=== PATIENT | female | born 1970 | race Two or more races ===

== ENCOUNTER 2020-01-13 18:26 | Emergency (ER) | payer OTHER, SELFPAY ==
[2020-01-13 19:10] VITALS: BP 154/95; PULSE 83; RESP 18; TEMP 36.8; O2SAT 99; BMI 23.7
--- NOTE | 2020-01-13 19:14 | ED.FEMALEGU ---
HPI - Female Genitourinary General Chief complaint: Urogenital-Female Stated complaint: Vaginal Irritation Time Seen by Provider: 01/13/20 19:13 Source: patient Mode of arrival: ambulatory Limitations: no limitations History of Present Illness HPI Narrative: Painful urination when the urine gets on her skin, vaginal itching. Patient has been on clotrimazole intravaginal, metronidazole suppository, miconazole 9 days ago. Patient felt better now with just itching. MD elicited complaint: dysuria Related Data Previous Rx's Medication Instructions Recorded fluconazole [Diflucan] 200 mg PO DAILY #1 tab 01/13/20 metformin [Glucophage] 1,000 mg PO DAILY #10 tab 01/13/20 Allergies Allergy/AdvReac Type Severity Reaction Status Date / Time aspirin [Aspirin] Allergy Mild UNKNOWN, Verified 01/13/20 19:15 causes bleeding in her kidney morphine [Morphine] Allergy Mild UNKNOWN Verified 01/13/20 19:15 penicillin G [Penicillin G] Allergy Mild UNKNOWN Verified 01/13/20 19:15 penicillin V Allergy Unknown rash and Verified 01/13/20 19:15 edema SEAFOOD Allergy Unknown UNKNOWN Uncoded 12/07/19 16:12 seafood Allergy Unknown anaphylaxis Uncoded 02/17/18 00:00 seafood, pollen Allergy Unknown Anaphylaxis Uncoded 01/13/20 19:15 Review of Systems Constitutional: Constitutional: Reports no additional constitutional complaints Eyes: Eyes: Reports no additional eye complaints ENT: Denies dizziness Cardiovascular: Cardiovascular: Reports no additional cardiovascular complaints Respiratory: Respiratory: Reports as per HPI Gastrointestinal: Gastrointestinal: Reports no additional gastrointestinal complaints Genitourinary: Genitourinary: Reports no additional female genitourinary complaints Musculoskeletal: Musculoskeletal: Reports no additional musculoskeletal complaints Integumentary/Breasts: Skin/Breast: Denies rash Neurologic: Reports system reviewed and no additional complaints, except as documented, Denies dizziness and Denies Sensory deficit (Neuro) Psychiatric: Psychiatric: Denies anxiety PMFSH Past Medical History Medical History Asthma Hypertension Social History Social History Alcohol intake: never Physical Exam Vital Signs: Vital Signs: Vital Signs Temp Pulse Resp BP Pulse Ox 01/13/20 19:10 98.3 F 83 18 154/95 H 99 Body Mass Index 23.7 Const: General: healthy appearing Nutritional Appearance: average body habitus Orientation/consciousness: oriented to person and patient oriented x3 Limitations: no limitations HENMT: Head: Yes normal to inspection Ears: external ears normal General nose exam: Normal external nose present Mouth: Normal oral and palatal mucosa present and oropharynx normal Throat: Yes posterior oropharynx normal Eyes: General: appearance normal, both eyes and all related structures Neck: Other: supple Neck: Yes normal visual inspection Chest: Chest palpation & inspection: normal inspection of the chest Resp: Auscultation: clear to auscultation bilaterally Cardio: Jugular venous distension: no JVD Rate: regular rate Rhythm: regular rhythm Heart sounds: S1 normal heart sound present and S2 normal heart sound present GI: Inspection: Yes normal to inspection Palpation (GI): Soft to palpation, nontender and No hepatosplenomegaly present Auscultation: normal bowel sounds : Other: Labia Majora and Minora with erythema and cheesy discharge General: Yes no CVA tenderness Back/Spine/Pelvis: Back: no CVA tenderness Skin: Other: As described in vaginal exam Neuro: General: oriented to person and patient oriented x3 Cranial nerves: Yes CN's II-XII intact bilaterally Motor exam (neuro): 5/5 motor strength present throughout Sensory Exam: No Sensory deficit (Neuro) Extrem: General: Yes normal to inspection Psych: Appearance: grossly normal Course Course Course Narrative: patient signed out to Dr. Doll for management of sugar and final dispositions MDM - Female Genitourinary MDM Narrative Medical decision making narrative: Patient with what appears to be vaginal candidaisis, now with sugar of 567 will hydrate and check labs. Patient to be discharged on 7 days of intravaginal miconazole, diflucan x 1 and metformin Lab Data Result diagrams: 01/13/20 21:11 01/13/20 21:11 Labs: Lab Results 01/13/20 01/13/20 01/13/20 Range/Units 19:18 19:32 20:55 WBC (4.8-10.8) X10*3/uL RBC (4.20-5.50) X10*6/uL Hgb (12.0-16.0) g/dl Hct (37-47) % MCV (80-98) fL MCH (27.0-33.0) pg MCHC (31.0-35.0) g/dl RDW (11.0-16.0) % Plt Count (160-400) X10*3/uL MPV (9.4-12.3) fL Immature Gran % (Auto) (0.0-0.4) % Neut % (Auto) (45-73) % Lymph % (Auto) (20-40) % [place] % (Auto) (2-11) % Eos % (Auto) (0-4) % Baso % (Auto) (0-2) % Lymph # (Auto) (1.2-4.9) X10*3/uL [place] # (Auto) (0.1-1.2) X10*3/uL Eos # (Auto) (0.0-0.4) X10*3/uL Baso # (Auto) (0.0-0.2) X10*3/uL Abs Immat Gran (auto) (0.00-0.03) X10*3/uL Absolute Neuts (auto) (2.0-8.3) X10*3/uL Absolute Nucleated RBC (0.0-0.012) X10*3/uL Nucleated RBC % (auto) (0.0-0.2) /100WBC Sodium (135-145) mmol/L Potassium (3.3-5.1) mmol/l Chloride (96-108) mmol/L Carbon Dioxide (22-29) mmol/L Anion Gap (12-20) BUN (9-16) mg/dL Creatinine (0.5-1.4) mg/dL Estim Creat Clear Calc Estimated GFR POC Glucose 567 H* 477 H* (60-115) mg/dL Random Glucose (60-115) mg/dL Calcium (8.4-10.2) mg/dL Urine Color YELLOW Urine Appearance CLEAR Urine pH 6.0 (5.0-8.0) Ur Specific [place] <= 1.005 (1.005-1.025) Urine Protein NEG (NEG-TRACE) MG/DL Urine Glucose (UA) >=1000 H (NEG) MG/DL Urine Ketones NEG (NEG) MG/DL Urine Blood TRACE (NEG) Urine Nitrite NEG (NEG) Ur Leukocyte Esterase NEG (NEG) Urine RBC 1-4 (0) /HPF Urine WBC 0-2 (0-4) /HPF Ur Squamous Epith Cells TRACE /LPF Urine Bacteria NONE /LPF 01/13/20 01/13/20 01/13/20 Range/Units 21:11 21:11 22:28 WBC 10.5 (4.8-10.8) X10*3/uL RBC 5.42 (4.20-5.50) X10*6/uL Hgb 14.7 (12.0-16.0) g/dl Hct 44.8 (37-47) % MCV 82.7 (80-98) fL MCH 27.1 (27.0-33.0) pg MCHC 32.8 (31.0-35.0) g/dl RDW 12.2 (11.0-16.0) % Plt Count 349 (160-400) X10*3/uL MPV 10.2 (9.4-12.3) fL Immature Gran % (Auto) 0.3 (0.0-0.4) % Neut % (Auto) 75.3 H (45-73) % Lymph % (Auto) 17.0 L (20-40) % [place] % (Auto) 6.8 (2-11) % Eos % (Auto) 0.4 (0-4) % Baso % (Auto) 0.2 (0-2) % Lymph # (Auto) 1.8 (1.2-4.9) X10*3/uL [place] # (Auto) 0.7 (0.1-1.2) X10*3/uL Eos # (Auto) 0.0 (0.0-0.4) X10*3/uL Baso # (Auto) 0.0 (0.0-0.2) X10*3/uL Abs Immat Gran (auto) 0.03 (0.00-0.03) X10*3/uL Absolute Neuts (auto) 7.9 (2.0-8.3) X10*3/uL Absolute Nucleated RBC 0.000 (0.0-0.012) X10*3/uL Nucleated RBC % (auto) 0.0 (0.0-0.2) /100WBC Sodium 135 (135-145) mmol/L Potassium 4.3 (3.3-5.1) mmol/l Chloride 98 (96-108) mmol/L Carbon Dioxide 24 (22-29) mmol/L Anion Gap 17 (12-20) BUN 15 (9-16) mg/dL Creatinine 1.13 (0.5-1.4) mg/dL Estim Creat Clear Calc 49.2 Estimated GFR 51 POC Glucose 395 H* (60-115) mg/dL Random Glucose 592 H* (60-115) mg/dL Calcium 9.3 (8.4-10.2) mg/dL Urine Color Urine Appearance Urine pH (5.0-8.0) Ur Specific [place] (1.005-1.025) Urine Protein (NEG-TRACE) MG/DL Urine Glucose (UA) (NEG) MG/DL Urine Ketones (NEG) MG/DL Urine Blood (NEG) Urine Nitrite (NEG) Ur Leukocyte Esterase (NEG) Urine RBC (0) /HPF Urine WBC (0-4) /HPF Ur Squamous Epith Cells /LPF Urine Bacteria /LPF 01/13/20 Range/Units 23:36 WBC (4.8-10.8) X10*3/uL RBC (4.20-5.50) X10*6/uL Hgb (12.0-16.0) g/dl Hct (37-47) % MCV (80-98) fL MCH (27.0-33.0) pg MCHC (31.0-35.0) g/dl RDW (11.0-16.0) % Plt Count (160-400) X10*3/uL MPV (9.4-12.3) fL Immature Gran % (Auto) (0.0-0.4) % Neut % (Auto) (45-73) % Lymph % (Auto) (20-40) % [place] % (Auto) (2-11) % Eos % (Auto) (0-4) % Baso % (Auto) (0-2) % Lymph # (Auto) (1.2-4.9) X10*3/uL [place] # (Auto) (0.1-1.2) X10*3/uL Eos # (Auto) (0.0-0.4) X10*3/uL Baso # (Auto) (0.0-0.2) X10*3/uL Abs Immat Gran (auto) (0.00-0.03) X10*3/uL Absolute Neuts (auto) (2.0-8.3) X10*3/uL Absolute Nucleated RBC (0.0-0.012) X10*3/uL Nucleated RBC % (auto) (0.0-0.2) /100WBC Sodium (135-145) mmol/L Potassium (3.3-5.1) mmol/l Chloride (96-108) mmol/L Carbon Dioxide (22-29) mmol/L Anion Gap (12-20) BUN (9-16) mg/dL Creatinine (0.5-1.4) mg/dL Estim Creat Clear Calc Estimated GFR POC Glucose 289 H (60-115) mg/dL Random Glucose (60-115) mg/dL Calcium (8.4-10.2) mg/dL Urine Color Urine Appearance Urine pH (5.0-8.0) Ur Specific [place] (1.005-1.025) Urine Protein (NEG-TRACE) MG/DL Urine Glucose (UA) (NEG) MG/DL Urine Ketones (NEG) MG/DL Urine Blood (NEG) Urine Nitrite (NEG) Ur Leukocyte Esterase (NEG) Urine RBC (0) /HPF Urine WBC (0-4) /HPF Ur Squamous Epith Cells /LPF Urine Bacteria /LPF Discharge Plan Discharge Clinical Impression: Skin yeast infection, Acute hyperglycemia Patient Disposition: Home, Self-Care Instructions: Diabetic Hyperglycemia (ED), Skin Yeast Infection (ED) Prescriptions: New fluconazole [Diflucan] 200 mg tablet 200 mg PO DAILY Qty: 1 RF: 0 metformin [Glucophage] 1,000 mg tablet 1,000 mg PO DAILY Qty: 10 RF: 0 Referrals: Shanon Harris MD [Primary Care Provider] - 2 days Interventions: ED Discharge Assessment Last Done: 01/14/20 00:09 Discharge Date/Time: 01/14/20 00:09 Print Language: Khmer
[2020-01-13 19:34] LABS: Glucose Urine UA >=1000 MG/DL (NEG); Leukocyte Esterase Urine NEG (NEG); Nitrite Urine NEG (NEG); Specific Gravity - Urine <= 1.005 (1.005-1.025); Urine Blood TRACE (NEG); Urine Ketones NEG (NEG); Urine Protein NEG (NEG-TRACE)
[2020-01-13 19:35] LABS: Appearance Urine CLEAR; Color Urine YELLOW
[2020-01-13 19:40] LABS: Glucose, Whole Blood 567 mg/dL (60-115)
--- NOTE | 2020-01-13 19:52 | PC.NURSE ---
PT REFUSING LABS, INSULIN AND IV AND IV FLUID UNTIL SHE TALKS WITH RISK AND BENEFITS DISCUSSED WITH PT WITH STAFF BRIDGE TOLL COLLECTOR PT INCREASINGLY NERVOUS.
--- NOTE | 2020-01-13 19:54 | PC.NURSE ---
EXAMANATION OF THE GRION AREA WITH DR SYKES PERFORMED WITH RN WITNESS AREA PINK AND INFLAMED RASH NOTED.
[2020-01-13 20:29] LABS: Squamous Epithelial Cell Urine TRACE /LPF; WBC Urine 0-2 /HPF (0-4)
[2020-01-13 21:00] LABS: Glucose, Whole Blood 477 mg/dL (60-115)
[2020-01-13] MEDS: 0.9 % Sodium Chloride 500 ML 1000 ML IV (21:17)
[2020-01-13 21:24] LABS: MANUAL DIFF FLAG NO
[2020-01-13 21:26] LABS: Basophils Percent Auto 0.2 % (0-2); Eosinophils Percent Auto 0.4 % (0-4); Hematocrit 44.8 % (37-47); Hemoglobin 14.7 g/dl (12.0-16.0); Imm Gran Abs Auto 0.03 X10*3/uL (0.00-0.03); Imm Gran Pct Auto 0.3 % (0.0-0.4); Lymphocytes Absolute Auto 1.8 X10*3/uL (1.2-4.9); Mean Corpuscular HGB Conc 32.8 g/dl (31.0-35.0); Mean Corpuscular Hemoglobin 27.1 pg (27.0-33.0); Mean Corpuscular Volume 82.7 fL (80-98); Mean Platelet Volume 10.2 fL (9.4-12.3); Monocytes Absolute Auto 0.7 X10*3/uL (0.1-1.2); Monocytes Percent Auto 6.8 % (2-11); Neutrophils Absolute Auto 7.9 X10*3/uL (2.0-8.3); Neutrophils Percent Auto 75.3 % (45-73); Platelet Count 349 X10*3/uL (160-400); Red Blood Count 5.42 X10*6/uL (4.20-5.50); Red Cell Distribution Width 12.2 % (11.0-16.0); White Blood Count 10.5 X10*3/uL (4.8-10.8)
[2020-01-13] MEDS: Insulin Regular, Human 100 UNIT/ML 3 ML VIAL 10 UNIT SUBCUT (21:27)
--- NOTE | 2020-01-13 22:01 | PC.NURSE ---
PT HAD REQUESTED TO RECHECKED FOR POC BEFORE STARTING ANY MEDICATION OR LABS POC 477 PT AGREED TO LAB, IV AND IV FLUIDS, AND INSULIN. DR LAMBERT AWARE OF POC OF 477 AND WANT TO CONTINUE WITH 10 SQ REG INSULIN.
[2020-01-13 22:08] LABS: Anion Gap 17 (12-20); Blood Urea Nitrogen 15 mg/dL (9-16); Calcium 9.3 mg/dL (8.4-10.2); Carbon Dioxide 24 mmol/L (22-29); Chloride 98 mmol/L (96-108); Creatinine Clr Calc Pharmacy 49.2; Estimated Glomerular Filt Rate 51; Glucose Random 592 mg/dL (60-115); Potassium 4.3 mmol/l (3.3-5.1); Sodium 135 mmol/L (135-145)
[2020-01-13 22:24] VITALS: BP 129/77; PULSE 78; RESP 16; TEMP 37.1; O2SAT 98
[2020-01-13 22:34] LABS: Glucose, Whole Blood 395 mg/dL (60-115)
--- NOTE | 2020-01-13 22:35 | PC.NURSE ---
DR PANIAGUA AWARE OF POC OF 395 AND ORDERED 5 UN SQ INSULIN
[2020-01-13] MEDS: Insulin Regular, Human 100 UNIT/ML 3 ML VIAL SUBCUT (22:49)
--- NOTE | 2020-01-13 23:18 | PC.NURSE ---
PT MOVED T MAIN ED REPORT GIVEN TO AMAN GUTIERREZ. PT AWARE SHE WILL HAVE POC RECHECKED IN 1 HR.
[2020-01-13 23:40] LABS: Glucose, Whole Blood 289 mg/dL (60-115)
--- NOTE | 2020-01-13 23:45 | ED_ITS ---
HPI - Female Genitourinary General Chief complaint: Urogenital-Female Stated complaint: Vaginal Irritation Time Seen by Provider: 01/13/20 19:13 Source: patient Mode of arrival: ambulatory Limitations: no limitations Related Data Previous Rx's Medication Instructions Recorded fluconazole [Diflucan] 200 mg PO DAILY #1 tab 01/13/20 metformin [Glucophage] 1,000 mg PO DAILY #10 tab 01/13/20 Allergies Allergy/AdvReac Type Severity Reaction Status Date / Time aspirin [Aspirin] Allergy Mild UNKNOWN, Verified 01/13/20 19:15 causes bleeding in her kidney morphine [Morphine] Allergy Mild UNKNOWN Verified 01/13/20 19:15 penicillin G [Penicillin G] Allergy Mild UNKNOWN Verified 01/13/20 19:15 penicillin V Allergy Unknown rash and Verified 01/13/20 19:15 edema SEAFOOD Allergy Unknown UNKNOWN Uncoded 12/07/19 16:12 seafood Allergy Unknown anaphylaxis Uncoded 02/17/18 00:00 seafood, pollen Allergy Unknown Anaphylaxis Uncoded 01/13/20 19:15 Review of Systems ENT: Denies dizziness Neurologic: Reports system reviewed and no additional complaints, except as documented, Denies dizziness and Denies Sensory deficit (Neuro) [facility] Past Medical History Medical History Asthma Hypertension Social History Social History Alcohol intake: never Smoked in Last 30 Days: No Use of substances other than those prescribed or required for medical reasons: No Advance Directives: No Advance Directives Information Provided: No Physical Exam Vital Signs: Vital Signs: Vital Signs Temp Pulse Resp BP Pulse Ox 01/13/20 22:24 98.7 F 78 16 129/77 98 01/13/20 19:10 98.3 F 83 18 154/95 H 99 Body Mass Index 23.7 Neuro: Sensory Exam: No Sensory deficit (Neuro) MDM - Female Genitourinary MDM Narrative Medical decision making narrative: patient's sugar came down nicely with insulin. Will discharge patient with anti fungal medication. In addition metformin was started. Patient told to closely follow up with her primary physician as she has diabetes. Patient in stable condition with discharge home Lab Data Attestation: I reviewed the patient's lab results. Result diagrams: 01/13/20 21:11 01/13/20 21:11 Labs: Lab Results 01/13/20 01/13/20 01/13/20 Range/Units 19:18 19:32 20:55 WBC (4.8-10.8) X10*3/uL RBC (4.20-5.50) X10*6/uL Hgb (12.0-16.0) g/dl Hct (37-47) % MCV (80-98) fL MCH (27.0-33.0) pg MCHC (31.0-35.0) g/dl RDW (11.0-16.0) % Plt Count (160-400) X10*3/uL MPV (9.4-12.3) fL Immature Gran % (Auto) (0.0-0.4) % Neut % (Auto) (45-73) % Lymph % (Auto) (20-40) % [place] % (Auto) (2-11) % Eos % (Auto) (0-4) % Baso % (Auto) (0-2) % Lymph # (Auto) (1.2-4.9) X10*3/uL [place] # (Auto) (0.1-1.2) X10*3/uL Eos # (Auto) (0.0-0.4) X10*3/uL Baso # (Auto) (0.0-0.2) X10*3/uL Abs Immat Gran (auto) (0.00-0.03) X10*3/uL Absolute Neuts (auto) (2.0-8.3) X10*3/uL Absolute Nucleated RBC (0.0-0.012) X10*3/uL Nucleated RBC % (auto) (0.0-0.2) /100WBC Sodium (135-145) mmol/L Potassium (3.3-5.1) mmol/l Chloride (96-108) mmol/L Carbon Dioxide (22-29) mmol/L Anion Gap (12-20) BUN (9-16) mg/dL Creatinine (0.5-1.4) mg/dL Estim Creat Clear Calc Estimated GFR POC Glucose 567 H* 477 H* (60-115) mg/dL Random Glucose (60-115) mg/dL Calcium (8.4-10.2) mg/dL Urine Color YELLOW Urine Appearance CLEAR Urine pH 6.0 (5.0-8.0) Ur Specific [place] <= 1.005 (1.005-1.025) Urine Protein NEG (NEG-TRACE) MG/DL Urine Glucose (UA) >=1000 H (NEG) MG/DL Urine Ketones NEG (NEG) MG/DL Urine Blood TRACE (NEG) Urine Nitrite NEG (NEG) Ur Leukocyte Esterase NEG (NEG) Urine RBC 1-4 (0) /HPF Urine WBC 0-2 (0-4) /HPF Ur Squamous Epith Cells TRACE /LPF Urine Bacteria NONE /LPF 01/13/20 01/13/20 01/13/20 Range/Units 21:11 21:11 22:28 WBC 10.5 (4.8-10.8) X10*3/uL RBC 5.42 (4.20-5.50) X10*6/uL Hgb 14.7 (12.0-16.0) g/dl Hct 44.8 (37-47) % MCV 82.7 (80-98) fL MCH 27.1 (27.0-33.0) pg MCHC 32.8 (31.0-35.0) g/dl RDW 12.2 (11.0-16.0) % Plt Count 349 (160-400) X10*3/uL MPV 10.2 (9.4-12.3) fL Immature Gran % (Auto) 0.3 (0.0-0.4) % Neut % (Auto) 75.3 H (45-73) % Lymph % (Auto) 17.0 L (20-40) % [place] % (Auto) 6.8 (2-11) % Eos % (Auto) 0.4 (0-4) % Baso % (Auto) 0.2 (0-2) % Lymph # (Auto) 1.8 (1.2-4.9) X10*3/uL [place] # (Auto) 0.7 (0.1-1.2) X10*3/uL Eos # (Auto) 0.0 (0.0-0.4) X10*3/uL Baso # (Auto) 0.0 (0.0-0.2) X10*3/uL Abs Immat Gran (auto) 0.03 (0.00-0.03) X10*3/uL Absolute Neuts (auto) 7.9 (2.0-8.3) X10*3/uL Absolute Nucleated RBC 0.000 (0.0-0.012) X10*3/uL Nucleated RBC % (auto) 0.0 (0.0-0.2) /100WBC Sodium 135 (135-145) mmol/L Potassium 4.3 (3.3-5.1) mmol/l Chloride 98 (96-108) mmol/L Carbon Dioxide 24 (22-29) mmol/L Anion Gap 17 (12-20) BUN 15 (9-16) mg/dL Creatinine 1.13 (0.5-1.4) mg/dL Estim Creat Clear Calc 49.2 Estimated GFR 51 POC Glucose 395 H* (60-115) mg/dL Random Glucose 592 H* (60-115) mg/dL Calcium 9.3 (8.4-10.2) mg/dL Urine Color Urine Appearance Urine pH (5.0-8.0) Ur Specific [place] (1.005-1.025) Urine Protein (NEG-TRACE) MG/DL Urine Glucose (UA) (NEG) MG/DL Urine Ketones (NEG) MG/DL Urine Blood (NEG) Urine Nitrite (NEG) Ur Leukocyte Esterase (NEG) Urine RBC (0) /HPF Urine WBC (0-4) /HPF Ur Squamous Epith Cells /LPF Urine Bacteria /LPF 01/12/ Range/Units 23:36 WBC (4.8-10.8) X10*3/uL RBC (4.20-5.50) X10*6/uL Hgb (12.0-16.0) g/dl Hct (37-47) % MCV (80-98) fL MCH (27.0-33.0) pg MCHC (31.0-35.0) g/dl RDW (11.0-16.0) % Plt Count (160-400) X10*3/uL MPV (9.4-12.3) fL Immature Gran % (Auto) (0.0-0.4) % Neut % (Auto) (45-73) % Lymph % (Auto) (20-40) % [place] % (Auto) (2-11) % Eos % (Auto) (0-4) % Baso % (Auto) (0-2) % Lymph # (Auto) (1.2-4.9) X10*3/uL [place] # (Auto) (0.1-1.2) X10*3/uL Eos # (Auto) (0.0-0.4) X10*3/uL Baso # (Auto) (0.0-0.2) X10*3/uL Abs Immat Gran (auto) (0.00-0.03) X10*3/uL Absolute Neuts (auto) (2.0-8.3) X10*3/uL Absolute Nucleated RBC (0.0-0.012) X10*3/uL Nucleated RBC % (auto) (0.0-0.2) /100WBC Sodium (135-145) mmol/L Potassium (3.3-5.1) mmol/l Chloride (96-108) mmol/L Carbon Dioxide (22-29) mmol/L Anion Gap (12-20) BUN (9-16) mg/dL Creatinine (0.5-1.4) mg/dL Estim Creat Clear Calc Estimated GFR POC Glucose 289 H (60-115) mg/dL Random Glucose (60-115) mg/dL Calcium (8.4-10.2) mg/dL Urine Color Urine Appearance Urine pH (5.0-8.0) Ur Specific [place] (1.005-1.025) Urine Protein (NEG-TRACE) MG/DL Urine Glucose (UA) (NEG) MG/DL Urine Ketones (NEG) MG/DL Urine Blood (NEG) Urine Nitrite (NEG) Ur Leukocyte Esterase (NEG) Urine RBC (0) /HPF Urine WBC (0-4) /HPF Ur Squamous Epith Cells /LPF Urine Bacteria /LPF Discharge Plan Discharge Clinical Impression: Skin yeast infection, Acute hyperglycemia Patient Disposition: Home, Self-Care Instructions: Diabetic Hyperglycemia (ED), Skin Yeast Infection (ED) Prescriptions: New fluconazole [Diflucan] 200 mg tablet 200 mg PO DAILY Qty: 1 RF: 0 metformin [Glucophage] 1,000 mg tablet 1,000 mg PO DAILY Qty: 10 RF: 0 Referrals: Shanon Harris MD [Primary Care Provider] - 2 days Print Language: Albanian
== END 2020-01-14 00:09 | disposition home or self-care (01) ==
PROVIDERS: Emergency Medicine; Emergency Provider Emergency Medicine Emergency Medical Services; PCP Family Medicine
DX: R30.0 Dysuria (principal); N89.8 Other specified noninflammatory disorders of vagina; Z79.899 Other long term (current) drug therapy
CPT/HCPCS: 36415; 80048; 81001; 82947; 85025; 99284

== ENCOUNTER 2020-04-03 13:54 | Outpatient (REF) | payer OTHER, SELFPAY | END 2020-04-03 13:55 | disposition home or self-care (01) | LOC: HO.LAB 13:54 | PROVIDERS: Visit Provider Internal Medicine | DX: Z20.822 Contact with and (suspected) exposure to COVID-19 (principal) | CPT/HCPCS: 36415; C9803; U0003 ==

== ENCOUNTER 2020-05-07 14:51 | Outpatient (REF) | payer OTHER, SELFPAY ==
[2020-05-10 05:02] LABS: HPV mRNA E6/E7 rflx Not Detected (Not Detected)
== END 2020-05-07 14:52 | disposition home or self-care (01) ==
LOC: HO.LAB 14:51
PROVIDERS: Visit Provider Obstetrics & Gynecology
DX: Z01.419 Encounter for gynecological examination (general) (routine) without abnormal findings (principal); Z11.51 Encounter for screening for human papillomavirus (HPV)
CPT/HCPCS: 36415; 87624; 88142

== ENCOUNTER 2020-05-23 11:21 | Outpatient (REF) | payer OTHER, SELFPAY ==
--- NOTE | ~2020-05-23 | MM_ITS ---
EXAMINATION: MM SCREENING DIGITAL BREAST TOMOSYNTHESIS, BILATERAL CLINICAL INFORMATION: Screening. Asymptomatic. The lifetime risk of breast cancer based on the Tyrer-Cuzick Model is 7%. COMPARISON: Mammography: 05/18/2019, 04/18/2018, 04/12/2017 TECHNIQUE: Digital breast tomosynthesis is performed in both the craniocaudal and mediolateral oblique views along with computer-aided detection (CAD). Synthesized 2D images are generated from the tomosynthesis. FINDINGS: The breasts are heterogeneously dense, which may obscure small masses (ACR BI-RADS breast composition Category c). There are no significant masses, abnormal calcifications, or other abnormalities. Parenchymal pattern is similar to prior exams. The axilla and skin contours are unremarkable. MM/MM tomosynthesis screening BI IMPRESSION: No mammographic evidence of malignancy. ASSESSMENT: BI-RADS 1: Negative RECOMMENDATION: Routine annual mammography screening. This patient's information was entered into a reminder system with a target due date for their next mammogram.
== END 2020-05-23 11:22 | disposition home or self-care (01) ==
LOC: HO.MAMMO 11:21
PROVIDERS: PCP Family Medicine; Visit Provider Family Medicine
DX: Z12.31 Encounter for screening mammogram for malignant neoplasm of breast (principal)
CPT/HCPCS: 77063; 77067

== ENCOUNTER 2020-07-31 10:22 | Outpatient (REF) | payer OTHER, SELFPAY ==
[2020-08-03 06:07] LABS: HPV mRNA E6/E7 rflx Not Detected (Not Detected)
== END 2020-07-31 10:23 | disposition home or self-care (01) ==
LOC: HO.LAB 10:22
PROVIDERS: PCP Family Medicine; Visit Provider Obstetrics & Gynecology
DX: R87.615 Unsatisfactory cytologic smear of cervix (principal); Z11.51 Encounter for screening for human papillomavirus (HPV)
CPT/HCPCS: 87624; 88142; 99212

== ENCOUNTER 2021-05-04 12:34 | Emergency (ER) | payer OTHER, SELFPAY ==
--- NOTE | ~2021-05-04 | XR_ITS ---
EXAMINATION: XR ABDOMEN KUB CLINICAL INDICATION: Constipation. COMPARISON: None TECHNIQUE: AP view of the abdomen. FINDINGS: There is scattered stool and gas seen throughout the colon without significant distention. The small bowel loops are normal caliber. Gallbladder has been surgically removed. No organomegaly. No gross bony abnormalities seen. XR/XR KUB IMPRESSION: Mild constipation. No acute process seen.
[2021-05-04 12:54] VITALS: BP 124/71; PULSE 80; RESP 16; TEMP 36.1; O2SAT 98; BMI 22.1
--- NOTE | 2021-05-04 14:37 | ED.GENADULT ---
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 Patient tells me that normally she moves her bowels about twice a week but over the last 3 days she has had difficulty passing stool with rectal pressure. She denies any abdominal pain or vomiting or fever. She is not taking any vmkg-hwk-pocsjly medications to move her bowels. Related Data Previous Rx's Medication Instructions Recorded fluconazole 200 mg tablet 200 mg PO DAILY #1 tab 01/13/20 (Diflucan) metformin 1,000 mg tablet 1,000 mg PO DAILY #10 tab 01/13/20 (Glucophage) docusate sodium 100 mg capsule 100 mg PO BID #30 cap 05/04/21 (Colace) lactulose 10 gram/15 mL (15 mL) 15 ml PO DAILY PRN #90 ml 05/04/21 oral solution polyethylene glycol 3350 17 gram 17 g PO BID #14 ea 05/04/21 oral powder packet (Miralax) Allergies Allergy/AdvReac Type Severity Reaction Status Date / Time aspirin [Aspirin] Allergy Mild UNKNOWN, Verified 05/07/20 15:03 causes bleeding in her kidney morphine [Morphine] Allergy Mild UNKNOWN Verified 05/07/20 15:03 penicillin G [Penicillin G] Allergy Mild UNKNOWN Verified 05/07/20 15:03 penicillin V Allergy Unknown rash and Verified 05/07/20 15:03 edema SEAFOOD Allergy Unknown UNKNOWN Uncoded 12/07/19 16:12 seafood Allergy Unknown anaphylaxis Uncoded 02/17/18 00:00 seafood, pollen Allergy Unknown Anaphylaxis Uncoded 01/13/20 19:15 Review of Systems Review of Systems: Yes all other systems are reviewed and are negative Constitutional: Constitutional: Reports no additional constitutional complaints, Denies body ache(s), Denies chills, Denies fever(s), Denies headache(s) and Denies weakness Eyes: Eyes: Reports no additional eye complaints and Denies change in vision ENT: Reports system reviewed and no additional complaints, except as documented, Denies dizziness, Denies headache(s), Denies nasal congestion, Denies nasal discharge and Denies neck pain Cardiovascular: Cardiovascular: Reports no additional cardiovascular complaints, Denies chest pain, Denies leg edema and Denies dyspnea Respiratory: Respiratory: Reports no additional respiratory complaints, Denies cough and Denies dyspnea Gastrointestinal: Gastrointestinal: Reports no additional gastrointestinal complaints, Denies abdominal pain, Reports constipation, Denies diarrhea, Denies nausea and Denies vomiting Genitourinary: Genitourinary: Reports no additional female genitourinary complaints and Denies urinary incontinence Musculoskeletal: Musculoskeletal: Reports no additional musculoskeletal complaints, Denies back pain, Denies arthralgias, Denies joint swelling, Denies neck pain, Denies numbness and Denies tingling Integumentary/Breasts: Skin/Breast: Reports system reviewed and no additional complaints, except as docu and Denies rash Neurologic: Reports system reviewed and no additional complaints, except as documented, Denies dizziness, Denies headache(s), Denies numbness, Denies tingling and Denies weakness PMFSH Past Medical History Attestation statement: The following information was validated with the patient. Source: old records reviewed and nursing notes reviewed Medical History Asthma Diabetes Hypertension Surgical History H/O dilation and curettage Social History Social History Alcohol intake: never Advance Directives: No Advance Directives Information Provided: Yes Physical Exam ED Vital Signs: Vital Signs - 24 hr 05/04/21 12:54 Temperature 97 F Pulse Rate 80 Respiratory Rate 16 Blood Pressure 124/71 Pulse Oximetry 98 BMI result Body Mass Index 22.1 Const General: cooperative, healthy appearing, comfortable and no acute distress Orientation/consciousness: patient oriented x3 Limitations: language barrier HENMT Head: Yes normal to inspection Ears: hearing grossly normal bilaterally General nose exam: Normal external nose present Face and sinus: Yes normal facial exam Mouth: Normal oral and palatal mucosa present Teeth and gingiva: dentition normal Throat: Yes posterior oropharynx normal and Yes tonsils normal Eyes General: appearance normal, both eyes and all related structures Pupils: Equal, round and reactive pupils present Neck Neck: Yes normal visual inspection, Yes full ROM, Yes no lymphadenopathy and Yes no meningeal signs Chest Chest palpation & inspection: normal inspection of the chest Resp Effort & Inspection: normal respiratory effort Auscultation: clear to auscultation bilaterally Cardio Rate: regular rate Peripheral pulses: Peripheral pulses 2+ throughout GI 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 Patient has not tried any onfc-ysc-pazqkus medications. Patient also denying any abdominal pain or vomiting. Abdomen is soft and nontender. Bowel sounds are present. On exam the patient has a fecal impaction. I did manually disimpact her and a Fleet enema was placed. KUB ordered from triage 1609-KUB shows mild constipation with no evidence of obstruction. After the Fleet enema the patient only was able to pass 2 small hard bowel movements. I did do an additional manual disimpaction with improvement of symptoms. Patient feeling much improved. Will discharge home with MiraLax, Colace and lactulose p.r.n.. Reviewed worrisome signs and symptoms of when to return to the emergency department. Comfortable discharge home. Procedures Procedure Narrative Procedure Narrative: Fecal disimpaction x2 with large amounts of stool removed. Patient tolerated well with no complications. Used transportation engineer (Venecia biomedical specialist and then sebastian biomedical specialist). Medical Decision Making Medical Records Medical records reviewed: Yes I reviewed the patient's medical records. Lab Data Lab results reviewed: Yes I reviewed the patient's lab results. Imaging Data Abdominal x-ray: Attestation: I personally reviewed and interpreted this imaging study as follows: Radiologist's impression: TECHNIQUE: AP view of the abdomen. FINDINGS: There is scattered stool and gas seen throughout the colon without significant distention. The small bowel loops are normal caliber. Gallbladder has been surgically removed. No organomegaly. No gross bony abnormalities seen. XR/XR KUB IMPRESSION: Mild constipation. No acute process seen. ? Discharge Plan Discharge Clinical Impression: Constipation, Fecal impaction Patient Disposition: Home, Self-Care Instructions: Constipation (DC), Fecal Impaction (ED) Additional Instructions: Dieta angle en fibra. Aumentar los l?quidos. [place] el miralax dos veces al d?a y colace dos veces al d?a hasta que tenga jesse evacuaci?n intestinal. Use lactulosa jesse dosis a la vez hasta que tenga jesse evacuaci?n intestinal. Prescriptions: New polyethylene glycol 3350 [Miralax] 17 gram powder in packet 17 g PO BID Qty: 14 0RF docusate sodium [Colace] 100 mg capsule 100 mg PO BID Qty: 30 0RF lactulose 10 gram/15 mL (15 mL) solution 15 ml PO DAILY PRN (Reason: laxative effect) Qty: 90 0RF No Action fluconazole [Diflucan] 200 mg tablet 200 mg PO DAILY Qty: 1 0RF metformin [Glucophage] 1,000 mg tablet 1,000 mg PO DAILY Qty: 10 0RF Referrals: Roberta Rondon MD [Primary Care Provider] - 1 week (if no better) Print Language: [place]an
[2021-05-04] MEDS: Sodium Phosphate,Mono-Dibasic 133 ML ENEMA PR (14:58)
[2021-05-04 16:10] VITALS: BP 125/73; PULSE 92; RESP 16; TEMP 37.2; O2SAT 98
== END 2021-05-04 16:41 | disposition home or self-care (01) ==
PROVIDERS: Emergency Provider Emergency Medicine; PCP Family Medicine
DX: K56.41 Fecal impaction (principal); Z79.899 Other long term (current) drug therapy
CPT/HCPCS: 74018; 99284

== ENCOUNTER 2021-06-16 15:05 | Outpatient (REF) | payer OTHER, SELFPAY ==
--- NOTE | ~2021-06-16 | MM_ITS ---
EXAMINATION: MM SCREENING DIGITAL BREAST TOMOSYNTHESIS, BILATERAL CLINICAL INFORMATION: Screening. Asymptomatic. The lifetime risk of breast cancer based on the Tyrer-Cuzick Model is 10%. COMPARISON: Mammography: 05/23/2020, 05/18/2019, 04/18/2018 TECHNIQUE: Digital breast tomosynthesis is performed in both the craniocaudal and mediolateral oblique views along with computer-aided detection (CAD). Synthesized 2D images are generated from the tomosynthesis. FINDINGS: The breasts are heterogeneously dense, which may obscure small masses (ACR BI-RADS breast composition Category c). There is fibronodular parenchymal pattern with scattered asymmetries similar to prior studies. No interval mass or developing density or architectural abnormality. There are no abnormal calcifications. The axilla and skin contours are unremarkable. MM/MM tomosynthesis screening BI IMPRESSION: No mammographic evidence of malignancy. ASSESSMENT: BI-RADS 2: Benign RECOMMENDATION: Routine annual mammography screening. This patient's information was entered into a reminder system with a target due date for their next mammogram.
== END 2021-06-16 15:06 | disposition home or self-care (01) ==
LOC: HO.MAMMO 15:05
PROVIDERS: Visit Provider Family Medicine
DX: Z12.31 Encounter for screening mammogram for malignant neoplasm of breast (principal)
CPT/HCPCS: 77063; 77067

== ENCOUNTER 2021-06-24 10:24 | Outpatient (REF) | payer OTHER, SELFPAY ==
[2021-06-25 09:00] LABS: CT PCR NOT DETECTED (Not Detect.); NG PCR NOT DETECTED (Not Detect.)
[2021-06-25 09:47] LABS: BV Int Neg Control Negative (Negative); BV Int Pos Control Positive (Positive)
== END 2021-06-24 10:25 | disposition home or self-care (01) ==
LOC: HO.LAB 10:24
PROVIDERS: Visit Provider Advanced Practice Midwife
DX: Z01.419 Encounter for gynecological examination (general) (routine) without abnormal findings (principal); Z20.2 Contact with and (suspected) exposure to infections with a predominantly sexual mode of transmission
CPT/HCPCS: 87480; 87491; 87510; 87591; 87660

== ENCOUNTER 2021-10-07 08:33 | Outpatient (REF) | payer OTHER, SELFPAY ==
--- NOTE | 2021-10-07 | PFT_ITS ---
INDICATION: Asthma and wheezing. SPIROMETRY: FEV1 to FVC of 86% with an FEV1 of 2.53 L, which is at 99% predicted; an FVC of 2.95 L, which is 92% predicted. Post bronchodilators, there was a significant response to bronchodilators noted. To note, the [id number] was decreased down to 56% predicted and this improved by 158% after bronchodilators, which is suspicious of asthma. Maximum voluntary ventilation 74% predicted. LUNG VOLUMES: Total lung capacity 125% predicted with a residual volume 179% predicted. DIFFUSION CAPACITY: DLCO 95% predicted. COMPARISONS: None. INTERPRETATION: No obstructive nor restrictive ventilatory defects identified. Although, the patient did have a significant response to bronchodilators noted and also has significant evidence of small airways disease, which is very suspicious for asthma. There is a mild decrease in maximum voluntary ventilation. Lung volumes do demonstrate significant air trapping and hyperinflation due to the small airways disease. Diffusion capacity is within normal limits. If asthma is in the differential or methacholine challenge may be helpful in assessing for hyper-reactive airways and for a definitive diagnosis of asthma. Otherwise, clinical correlation warranted. MD VAN Nicholson/LAKSHMI / [id number]
== END 2021-10-07 08:34 | disposition home or self-care (01) ==
LOC: HO.RESP 08:33
PROVIDERS: PCP Family Medicine; Visit Provider Family Medicine
DX: J45.40 Moderate persistent asthma, uncomplicated (principal)
CPT/HCPCS: 94060; 94727; 94729

== ENCOUNTER 2022-04-10 10:48 | Outpatient (REF) | payer OTHER, SELFPAY ==
--- NOTE | ~2022-04-10 | XR_ITS ---
EXAMINATION: XR chest 2V CLINICAL INFORMATION: Reason for Exam WHEEZING COMPARISON: Chest radiograph 08/30/2017 TECHNIQUE: 2 views of the chest FINDINGS: Clear lungs. No pneumothorax or pleural effusion. Normal cardiomediastinal silhouette. Right upper quadrant surgical clips. XR/XR chest 2V IMPRESSION: * Clear lungs.
== END 2022-04-10 10:49 | disposition home or self-care (01) ==
LOC: HO.XRAY 10:48
PROVIDERS: PCP Family Medicine; Visit Provider Family Medicine
DX: R06.2 Wheezing (principal)
CPT/HCPCS: 71046

== ENCOUNTER → 2022-06-09 13:22 | Outpatient (BNVA) | payer OTHER, SELFPAY | PROVIDERS: PCP Family Medicine; Visit Provider Hospitalist | DX: J45.40 Moderate persistent asthma, uncomplicated (principal); J30.9 Allergic rhinitis, unspecified; Z91.09 Other allergy status, other than to drugs and biological substances | CPT/HCPCS: 99202 ==

== ENCOUNTER 2022-07-18 10:19 | Outpatient (REF) | payer OTHER, SELFPAY ==
--- NOTE | ~2022-07-18 | MM_ITS ---
EXAMINATION: MM SCREENING DIGITAL BREAST TOMOSYNTHESIS, BILATERAL CLINICAL INFORMATION: Screening. Asymptomatic. The lifetime risk of breast cancer based on the Tyrer-Cuzick Model is 7%. COMPARISON: Mammography: 06/16/2021, 05/23/2020, 05/18/2019 TECHNIQUE: Digital breast tomosynthesis is performed in both the craniocaudal and mediolateral oblique views along with computer-aided detection (CAD). Synthesized 2D images are generated from the tomosynthesis. FINDINGS: The breasts are heterogeneously dense, which may obscure small masses (ACR BI-RADS breast composition Category c). There are no significant masses, abnormal calcifications, or other abnormalities. No architectural abnormality or developing density or significant change from prior studies. Skin contours and axilla are unremarkable. No significant changes from prior exams. MM/MM tomosynthesis screening BI IMPRESSION: No mammographic evidence of malignancy. ASSESSMENT: BI-RADS 1: Negative RECOMMENDATION: Routine annual mammography screening. This patient's information was entered into a reminder system with a target due date for their next mammogram.
== END 2022-07-18 10:20 | disposition home or self-care (01) ==
LOC: HO.MAMMO 10:19
PROVIDERS: PCP Family Medicine; Visit Provider Family Medicine
DX: Z12.31 Encounter for screening mammogram for malignant neoplasm of breast (principal)
CPT/HCPCS: 77063; 77067

== ENCOUNTER → 2022-08-28 12:44 | Outpatient (BNVA) | payer OTHER, SELFPAY | PROVIDERS: PCP Family Medicine; Visit Provider Hospitalist | DX: J45.40 Moderate persistent asthma, uncomplicated (principal); J30.9 Allergic rhinitis, unspecified; Z91.09 Other allergy status, other than to drugs and biological substances | CPT/HCPCS: 99212 ==

== ENCOUNTER 2022-09-08 11:13 | Outpatient (REF) | payer OTHER, SELFPAY ==
[2022-09-08 11:32] LABS: MANUAL DIFF FLAG NO
[2022-09-08 11:45] LABS: Basophils Percent Auto 0.5 % (0-2); Eosinophils Absolute Auto 0.1 X10*3/uL (0.0-0.4); Eosinophils Percent Auto 1.4 % (0-4); Hematocrit 42.1 % (37.0-47.0); Hemoglobin 13.6 g/dl (12.0-16.0); Imm Gran Abs Auto 0.01 X10*3/uL (0.00-0.03); Imm Gran Pct Auto 0.2 % (0.0-0.4); Lymphocytes Absolute Auto 1.6 X10*3/uL (1.2-4.9); Mean Corpuscular HGB Conc 32.3 g/dl (31.0-35.0); Mean Corpuscular Hemoglobin 27.6 pg (27.0-33.0); Mean Corpuscular Volume 85.6 fL (80.0-98.0); Mean Platelet Volume 9.2 fL (9.4-12.3); Monocytes Absolute Auto 0.4 X10*3/uL (0.1-1.2); Monocytes Percent Auto 7.4 % (2-11); Neutrophils Absolute Auto 3.7 x10*3/uL (2.0-8.3); Neutrophils Percent Auto 63.5 % (45-73); Platelet Count 314 X10*3/uL (160-400); Red Blood Count 4.92 X10*6/uL (4.20-5.50); Red Cell Distribution Width 13.1 % (11.0-16.0); White Blood Count 5.8 X10*3/uL (4.8-10.8)
[2022-09-08 12:30] LABS: Anion Gap 14 (12-20); Blood Urea Nitrogen 18 mg/dL (9-16); Calcium 9.7 mg/dL (8.4-10.2); Carbon Dioxide 29 mmol/L (22-29); Chloride 105 mmol/L (96-108); Estimated Glomerular Filt Rate > 60; Potassium 3.8 mmol/L (3.3-5.1); Sodium 144 mmol/L (135-145)
[2022-09-08 16:26] LABS: Erythrocyte Sedimentation Rate 5 MM/HR (0-20)
== END 2022-09-08 11:14 | disposition home or self-care (01) ==
LOC: HO.LAB 11:13
PROVIDERS: Hospitalist; PCP Family Medicine; Visit Provider Internal Medicine Nephrology
DX: J45.909 Unspecified asthma, uncomplicated (principal); I10 Essential (primary) hypertension
CPT/HCPCS: 36415; 80051; 82310; 82565; 84520; 85025; 85652

== ENCOUNTER 2022-11-13 10:54 | Outpatient (REF) | payer OTHER, SELFPAY ==
[2022-11-13 15:43] LABS: Blood Urea Nitrogen 14 mg/dL (9-16); Estimated Glomerular Filt Rate > 60
== END 2022-11-13 10:55 | disposition home or self-care (01) ==
LOC: HO.LAB 10:54
PROVIDERS: PCP Family Medicine; Visit Provider Radiology Vascular & Interventional Radiology
DX: R79.89 Other specified abnormal findings of blood chemistry (principal); R94.4 Abnormal results of kidney function studies
CPT/HCPCS: 36415; 82565; 84520

== ENCOUNTER 2023-03-16 08:17 | Outpatient (REF) | payer MEDICAID, SELFPAY ==
[2023-03-16 09:17] LABS: Alanine Aminotransferase 24 U/L (0-31); Albumin Level 4.1 g/dL (3.5-5.0); Alkaline Phosphatase 122 U/L (39-117); Anion Gap 13 (12-20); Aspartate Amino Transferase 22 U/L (5-31); Bilirubin Total 0.7 mg/dL (0.0-1.0); Blood Urea Nitrogen 15 mg/dL (9-16); Calcium 9.9 mg/dL (8.4-10.2); Carbon Dioxide 29 mmol/L (22-29); Chloride 104 mmol/L (96-108); Cholesterol 137 mg/dL (<200); Estimated Glomerular Filt Rate > 60; Glucose Random 88 mg/dL (60-115); HDL Cholesterol 46 mg/dL (>40); LDL Cholesterol Calculated 83 mg/dL (<100); Potassium 3.5 mmol/L (3.3-5.1); Sodium 142 mmol/L (135-145); Total Protein 7.3 g/dL (6.5-8.0); Triglycerides 42 mg/dL (<150)
== END 2023-03-16 08:18 | disposition home or self-care (01) ==
LOC: HO.LAB 08:17
PROVIDERS: PCP Family Medicine; Visit Provider Family Medicine
DX: E11.9 Type 2 diabetes mellitus without complications (principal)
CPT/HCPCS: 36415; 80053; 80061

== ENCOUNTER 2023-04-01 09:17 | Outpatient (AMB) | payer MEDICAID, SELFPAY ==
--- NOTE | 2023-04-01 09:19 | MHC.OFFVIS ---
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 annual exam/30 min/DO NOT RS Lot Attendant Required: Yes Lot Attendant Language: Mixer Tender Name: Catie [id number] Information Interpreted: non-clinical & clinical Acute Care Assistant: Acute Care Assistant Present (Sueyn) Allergies aspirin [Aspirin] Allergy (Mild, Verified 04/01/23 09:37) UNKNOWN, causes bleeding in her kidney morphine [Morphine] Allergy (Mild, Verified 04/01/23 09:37) UNKNOWN penicillin G [Penicillin G] Allergy (Mild, Verified 04/01/23 09:37) UNKNOWN penicillin V Allergy (Unknown, Verified 04/01/23 09:37) rash and edema SEAFOOD Allergy (Unknown, Uncoded 04/01/23 09:37) UNKNOWN seafood Allergy (Unknown, Uncoded 04/01/23 09:37) anaphylaxis seafood, pollen Allergy (Unknown, Uncoded 04/01/23 09:37) Anaphylaxis Is last menstrual period known: No Post menopausal: Yes HPI HPI Comments History of Present Illness Details 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 She is doing well with no concerns. Attempting to eat a healthy diet with calcium and vitamin D. Currently not very sexually active w/partner. Admits vaginal dryness, no irritation. STI testing offered; she accepts culture. Last pap smear; 2020. Last mammogram; 2022. Colonoscopy is not UTD, plans [facility]. Denies any family history of breast, ovarian or colon cancer. [facility] Medical History Environmental allergies Chronic allergic rhinitis Asthma Diabetes Asthma Hypertension Surgical History (Updated 04/01/23 @ 09:38 by ETHEL Garrett) History of kidney surgery Hx of cholecystectomy H/O dilation and curettage Social History Alcohol intake: never Patient Tobacco Use Status: Never used Tobacco Gender identity: Female Female Reproductive History Menstrual Age of Menarche: 6 control method: none Total pregnancies: 4 Full term: 1 Number of Living Children: 1 Ab spontaneous: 3 Date of last pap smear: 08/01/20 (negative) History of abnormal pap smear: Yes (2019 ASCUS +HPV) Date of Mammogram: 07/18/22 Review of Systems Const All systems reviewed & are unremarkable except as noted in HPI and below Reports as per HPI Eyes Reports no additional complaints ENT Reports no additional complaints Card Reports no additional complaints Resp Reports no additional complaints GI Reports as per HPI and Reports no additional complaints Reports as per HPI Musc Reports no additional complaints Skin/Breast Reports as per HPI Neuro Reports no additional complaints Psych Reports no additional complaints Endo Reports no additional complaints Terrance/Lymph Reports no additional complaints Aller/Immun Reports no additional complaints Physical Exam Vital Signs: Last Vital Signs BP 132/70 04/01/23 09:32 BMI result Body Mass Index 24.1 Const General: cooperative, healthy appearing, no acute distress, well developed and alert Orientation/consciousness: patient oriented x3 HEENT Head: Yes normal to inspection Eyes General: appearance normal, both eyes and all related structures Neck Neck: Yes normal visual inspection Thyroid: Thyroid normal Chest Chest palpation & inspection: normal inspection of the chest and other (no puckering, dimpling, peau de orange, retraction, discharge, masses) Breast/axilla inspection: normal inspection of the breasts Breast/axilla palpation: normal palpation of the breasts Resp Effort & Inspection: normal respiratory effort GI Inspection: Yes normal to inspection Palpation (GI): Soft to palpation Rectal Exam - Female: deferred General: Yes bladder normal to palpation External Female Exam: normal external appearance and normal appearance of the urethra Speculum Exam - Vagina: normal appearance of the vagina, normal palpation, normal vaginal discharge and vagina atrophic Speculum Exam - Cervix: normal appearance of the cervix and normal palpation Bimanual exam- vagina & uterus: normal bimanual exam, normal palpation, uterine size normal, bladder normal to palpation, normal palpation and non-tender Bimanual Exam- Adnexa, other: no masses Skin General skin exam: no rashes or lesions noted Rashes: no rashes Neuro General: patient oriented x3 Cognition (Neuro): normal cognition Extrem General: Yes normal to inspection Psych Attitude: cooperative Thought process: Normal thought process present Assessment & Plan Assessment & Plan (1) Well woman exam with routine gynecological exam: Code(s): Z01.419 - Encounter for gynecological examination (general) (routine) without abnormal findings Plan: Discussed: Current recommendations for pap smears per ASCCP guidelines. Breast awareness, periodic self breast exams and yearly mammogram. Maintain a healthy lifestyle, well balanced diet including Calcium 1,200 mg and Vitamin D 600 IU daily, and routine exercise. Contact the office with any postmenopausal bleeding. All of her questions and concerns were addressed to the best of my ability. 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 This note is constructed using voice recognition software. While every effort has been made to ensure accuracy, facilities locator errors may have been included. Coding Level of Care Code Est Pt Prev Care 40-64y(17870) Diagnoses Well woman exam with routine gynecological exam Z01.419
[2023-04-01 09:32] VITALS: BP 132/70; BMI 24.1
== END 2023-04-01 10:02 | disposition home or self-care (01) ==
LOC: HO.HWS 09:17
PROVIDERS: PCP Family Medicine; Visit Provider Advanced Practice Midwife
DX: Z01.419 Encounter for gynecological examination (general) (routine) without abnormal findings (principal)
CPT/HCPCS: 99396

== ENCOUNTER 2023-04-01 09:17 | Outpatient (REF) | payer MEDICAID, SELFPAY ==
[2023-04-01 15:42] LABS: CT PCR NOT DETECTED (Not Detect.); NG PCR NOT DETECTED (Not Detect.)
== END 2023-04-01 09:18 | disposition home or self-care (01) ==
LOC: HO.LNP 09:17
PROVIDERS: PCP Family Medicine; Visit Provider Advanced Practice Midwife
DX: Z01.419 Encounter for gynecological examination (general) (routine) without abnormal findings (principal); Z11.3 Encounter for screening for infections with a predominantly sexual mode of transmission; Z78.0 Asymptomatic menopausal state
CPT/HCPCS: 0353U; 99396

== ENCOUNTER 2023-06-16 12:08 | Outpatient (REF) | payer MEDICAID, SELFPAY ==
[2023-06-16 13:26] LABS: Anion Gap 8 (12-20); Blood Urea Nitrogen 13 mg/dL (9-16); Calcium 9.8 mg/dL (8.4-10.2); Carbon Dioxide 32 mmol/L (22-29); Chloride 105 mmol/L (96-108); Estimated Glomerular Filt Rate > 60; Potassium 4.1 mmol/L (3.3-5.1); Sodium 141 mmol/L (135-145)
[2023-06-16 14:30] LABS: Appearance Urine Clear; Color Urine Yellow; Glucose Urine UA Negative (Negative); Leukocyte Esterase Urine Small (1+) (Negative); Nitrite Urine Negative (Negative); Specific Gravity - Urine 1.015 (1.005-1.025); UMIC TRIGGER UA YES; Urine Blood Negative (Negative); Urine Ketones Negative (Negative); Urine Protein Negative (Neg-Trace)
[2023-06-16 14:45] LABS: Bacteria Urine None Seen (None Seen); Hyaline Casts Urine 0-2 /LPF (0-2); RBC Urine 0-2 /HPF (0-2); WBC Urine 0-5 /HPF (0-5)
[2023-06-16 15:06] LABS: Creatinine Urine 106.71 mg/dL; Microalbum/Creatinine Ratio Ur 19.6 ug/mg cr (<30); Protein/Creatinine Ratio, Ur 0.08 (<0.2); Total Protein Urine Random 9 mg/dL (<12)
== END 2023-06-16 12:09 | disposition home or self-care (01) ==
LOC: HO.LAB 12:08
PROVIDERS: PCP Family Medicine; Visit Provider Internal Medicine Nephrology
DX: I10 Essential (primary) hypertension (principal); D17.71 Benign lipomatous neoplasm of kidney
CPT/HCPCS: 36415; 80051; 81001; 82043; 82310; 82565; 82570; 84156; 84520

== ENCOUNTER 2023-07-31 09:57 | Outpatient (REF) | payer MEDICAID, SELFPAY ==
--- NOTE | ~2023-07-31 | MM_ITS ---
EXAMINATION: MM SCREENING DIGITAL BREAST TOMOSYNTHESIS, BILATERAL CLINICAL INFORMATION: Screening. Asymptomatic. COMPARISON: Mammography: This study is compared with prior exams dating back to 2019. TECHNIQUE: Digital breast tomosynthesis is performed in both the craniocaudal and mediolateral oblique views along with computer-aided detection (CAD). Synthesized 2D images are generated from the tomosynthesis. FINDINGS: The breasts are heterogeneously dense, which may obscure small masses (ACR BI-RADS breast composition Category c). In the lateral most aspect of the fat glandular interface of the left breast, there is an asymmetry for which additional mammographic and targeted sonographic imaging is advised. In the right breast, there are no significant masses, abnormal calcifications, or other abnormalities. MM/MM tomosynthesis screening BI IMPRESSION: Asymmetry of the left breast warrants additional mammographic and targeted sonographic imaging. No mammographic signs of malignancy right breast. ASSESSMENT: BI-RADS BI-RADS 1 - Negative RECOMMENDATION: 1. Additional views of the left breast 2. Targeted ultrasound if warranted after review of the additional views. 3. Radiology department staff will contact the patient for additional imaging. Additional Imaging required This examination should not preclude the clinical evaluation of a suspicious palpable abnormality. This patient's information was entered into a reminder system with a target due date for their next mammogram.
== END 2023-07-31 09:58 | disposition home or self-care (01) ==
LOC: HO.MAMMO 09:57
PROVIDERS: PCP Family Medicine; Visit Provider Family Medicine
DX: Z12.31 Encounter for screening mammogram for malignant neoplasm of breast (principal)
CPT/HCPCS: 77063; 77067

== ENCOUNTER → 2023-07-31 10:30 | Outpatient (BNV) | payer MEDICAID, SELFPAY | PROVIDERS: PCP Family Medicine; Visit Provider Radiology Diagnostic Radiology | DX: Z12.31 Encounter for screening mammogram for malignant neoplasm of breast (principal) | CPT/HCPCS: 77063; 77067 ==

== ENCOUNTER 2023-08-31 10:54 | Outpatient (REF) | payer MEDICAID, SELFPAY ==
--- NOTE | ~2023-08-31 | MM_ITS ---
EXAMINATION: MM DIAGNOSTIC DIGITAL BREAST TOMOSYNTHESIS, LEFT CLINICAL INFORMATION: Follow-up one view asymmetry left breast CC view only far lateral aspect seen on screening exam. COMPARISON: Mammography: 07/31/2023, 07/18/2022, 06/16/2021, 05/23/2020, and dating back to 2014. TECHNIQUE: Digital breast tomosynthesis is performed. 2D images are generated from the tomosynthesis. The following views are obtained: Full-field 3-D digital left ML view, full-field 3-D left exaggerated lateral 3-D CC view, and 3-D spot compression left CC views x2. FINDINGS: The breasts are heterogeneously dense, which may obscure small masses (ACR BI-RADS breast composition Category c). Additional views demonstrate complete effacement of the asymmetry seen in the far lateral left breast. No persistent asymmetry on the spot compression, exaggerated lateral CC, or spot compression CC views. Only heterogeneously dense parenchyma is seen. In the left axillary tail there are 2 abutting oval lymph nodes with fatty indu present. Overall there has been no change in the appearance of the far lateral left breast since 2020 exams. MM/MM tomosynthesis added views L IMPRESSION: No persistent abnormality suspicious for malignancy. Recommend the patient return to routine annual screening. ASSESSMENT: BI-RADS BI-RADS 1 - Negative RECOMMENDATION: 1 year F/U Results were provided to the patient at time of visit by the technologist. This patient's information was entered into a reminder system with a target due date for their next mammogram.
== END 2023-08-31 10:55 | disposition home or self-care (01) ==
LOC: HO.MAMMO 10:54
PROVIDERS: PCP Family Medicine; Visit Provider Family Medicine
DX: N64.89 Other specified disorders of breast (principal)
CPT/HCPCS: 77061; 77065

== ENCOUNTER → 2023-08-31 11:00 | Outpatient (BNV) | payer MEDICAID, SELFPAY | PROVIDERS: PCP Family Medicine; Visit Provider Radiology Diagnostic Radiology | DX: R92.8 Other abnormal and inconclusive findings on diagnostic imaging of breast (principal) | CPT/HCPCS: 77061; 77065 ==

== ENCOUNTER 2023-10-09 18:45 | Emergency (ER) | payer MEDICAID, SELFPAY ==
--- NOTE | ~2023-10-09 | XR_ITS ---
EXAMINATION: XR TIBIA AND FIBULA, RIGHT XR ANKLE, RIGHT XR FOOT, RIGHT CLINICAL INFORMATION: Injury with right lower extremity pain COMPARISON: None available. TECHNIQUE: AP and lateral views of the right tibia and fibula were obtained. AP, lateral, and mortise views of the right ankle. AP, lateral, and oblique views of the right foot. FINDINGS: TIBIA/FIBULA: The bones and proximal soft tissues are normal. No fracture. No osseous lesions. ANKLE: Generalized soft tissue edema at the ankle No fracture. Alignment is anatomic. No erosions. Joint spaces are maintained. FOOT: No fracture. Alignment is anatomic. No erosions. Joint spaces are maintained. Soft tissues are normal. XR/XR tibia fibula RT 2V IMPRESSION: No acute osseous process. Soft tissue edema at the ankle.
--- NOTE | ~2023-10-09 | XR_ITS ---
EXAMINATION: XR TIBIA AND FIBULA, RIGHT XR ANKLE, RIGHT XR FOOT, RIGHT CLINICAL INFORMATION: Injury with right lower extremity pain COMPARISON: None available. TECHNIQUE: AP and lateral views of the right tibia and fibula were obtained. AP, lateral, and mortise views of the right ankle. AP, lateral, and oblique views of the right foot. FINDINGS: TIBIA/FIBULA: The bones and proximal soft tissues are normal. No fracture. No osseous lesions. ANKLE: Generalized soft tissue edema at the ankle No fracture. Alignment is anatomic. No erosions. Joint spaces are maintained. FOOT: No fracture. Alignment is anatomic. No erosions. Joint spaces are maintained. Soft tissues are normal. XR/XR foot RT min 3V IMPRESSION: No acute osseous process. Soft tissue edema at the ankle.
--- NOTE | ~2023-10-09 | US_ITS ---
EXAMINATION: US VENOUS ULTRASOUND WITH DOPPLER LOWER EXTREMITY, RIGHT CLINICAL INFORMATION: Right lower extremity pain and edema. Evaluate for a deep vein thrombosis. COMPARISON: None available. TECHNIQUE: Ultrasound of the deep veins is performed from the hip to the calf with compression sonography and color and pulse Doppler assessment. Spectral analysis with color-flow imaging is performed. FINDINGS: There is normal venous compression and respiratory variation and augmented flow. The visualized common femoral vein, superficial femoral vein, profunda femoral vein, popliteal vein, and the trifurcation region shows no evidence of deep venous thrombosis. Within the right popliteal fossa there are small complex cysts measuring 2.4 x 0.5 x 1.2 cm and 7.2 x 1.5 x 1.4 cm, likely indicating a Yanez's cyst. Prominent right inguinal lymph node measuring up to 2.7 x 0.6 x 1.6 cm with normal architecture. If the patient's symptoms persist, followup ultrasound in 5 days 7 days might be of value to exclude proximal propagation from a non-visualized calf vein. US/US venous duplex LE RT IMPRESSION: No DVT demonstrated in the right lower extremity. A small right popliteal cyst. Prominent right inguinal lymph node with normal architecture.
--- NOTE | ~2023-10-09 | XR_ITS ---
EXAMINATION: XR TIBIA AND FIBULA, RIGHT XR ANKLE, RIGHT XR FOOT, RIGHT CLINICAL INFORMATION: Injury with right lower extremity pain COMPARISON: None available. TECHNIQUE: AP and lateral views of the right tibia and fibula were obtained. AP, lateral, and mortise views of the right ankle. AP, lateral, and oblique views of the right foot. FINDINGS: TIBIA/FIBULA: The bones and proximal soft tissues are normal. No fracture. No osseous lesions. ANKLE: Generalized soft tissue edema at the ankle No fracture. Alignment is anatomic. No erosions. Joint spaces are maintained. FOOT: No fracture. Alignment is anatomic. No erosions. Joint spaces are maintained. Soft tissues are normal. XR/XR ankle RT min 3V IMPRESSION: No acute osseous process. Soft tissue edema at the ankle.
--- NOTE | 2023-10-09 19:23 | ED_ITS ---
HPI - General Adult General Chief complaint: Extremity Problem Stated complaint: left foot is swollen Time Seen by Provider: 10/09/23 20:27 Source: patient and manufacturing engineering manager (namibian) Mode of arrival: ambulatory Limitations: language barrier ([place]) History of Present Illness ED Provider: SARMAD LYNN PA-C HPI narrative: 53 year old namibian speaking female with past medical history significant for asthma, diabetes, hypertension presents to the ED today for evaluation of right calf discomfort x3 days. 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 Reports feeling like she strained a muscle. Pain is worse with walking. Admits to minimal amount of swelling of the right lower extremity. She has not been taking anything for the pain at home. Denies recent travel or long car rides. Denies OCP use. Denies cough, hemoptysis, chest pain, shortness of breath, difficulty breathing. mrb engineer utilized throughout visit to communicate with patient. Related Data Home Medications ?Medication ?Instructions ?Recorded ?Confirmed albuterol sulfate 90 mcg/actuation 2 puff inhalation Q6H PRN 06/09/22 aerosol inhaler (ProAir HFA) amlodipine 2.5 mg tablet 2.5 mg PO QAM blood pressure 06/09/22 loratadine 10 mg tablet 10 mg PO DAILY 06/09/22 Previous Rx's ?Medication ?Instructions ?Recorded docusate sodium 100 mg capsule 100 mg PO BID #30 caps 05/04/21 (Colace) fluticasone propionate 50 2 spray intranasal DAILY 30 days 06/09/22 mcg/actuation nasal #15.8 mL spray,suspension fluticasone propionate 45 2 puff inhalation BID 30 days #12 08/31/22 mcg-salmeterol 21 mcg/actuation grams HFA inhaler (Advair HFA) montelukast 10 mg tablet 10 mg PO BEDTIME 30 days #30 tabs 06/11/23 (Singulair) Allergies Allergy/AdvReac Type Severity Reaction Status Date / Time aspirin [Aspirin] Allergy Mild UNKNOWN, Verified 10/09/23 19:28 causes bleeding in her kidney morphine [Morphine] Allergy Mild UNKNOWN Verified 10/09/23 19:28 penicillin G [Penicillin G] Allergy Mild UNKNOWN Verified 10/09/23 19:28 penicillin V Allergy Unknown rash and Verified 10/09/23 19:28 edema SEAFOOD Allergy Unknown UNKNOWN Uncoded 10/09/23 19:28 seafood Allergy Unknown anaphylaxis Uncoded 10/09/23 19:28 seafood, pollen Allergy Unknown Anaphylaxis Uncoded 10/09/23 19:28 Review of Systems Review of Systems: Constitutional: No fever, chills, fatigue, night sweats, weight changes ENT/Mouth: No ear pain, hearing loss, nasal congestion, sinus pain, rhinorrhea, sore throat Eyes: No eye pain, swelling, redness, vision changes, discharge Cardio: No chest pain, palpitations, GARZA, orthopnea, peripheral edema Pulm: No SOB, cough, sputum, wheezing, dyspnea, hemoptysis GI: No nausea, vomiting, hematemesis, abdominal pain, diarrhea, constipation, hematochezia, melena : No irregular bleeding, dysuria, frequency, urgency, hesitancy, hematuria, flank pain, urinary flow changes, urinary incontinence or retention MSK: No back pain, neck pain, joint pain, myalgias, +right calf pain Skin: No lesions, rashes Neuro: No weakness, numbness, paresthesias, LOC, dizziness, headache Psych: No anxiety/panic, depression, SI/HI, AH/VH All other systems reviewed and are negative. [facility] Past Medical History Attestation statement: The following information was validated with the patient. Source: old records reviewed and nursing notes reviewed Medical History Environmental allergies Chronic allergic rhinitis Asthma Diabetes Asthma Hypertension Surgical History History of kidney surgery Hx of cholecystectomy H/O dilation and curettage Social History Social History Alcohol intake: never Patient Tobacco Use Status: Never used Tobacco Smoked in Last 30 Days: No Use of substances other than those prescribed or required for medical reasons: No Advance Directives: No Advance Directives Information Provided: No Do you have a plan to hurt others: No Plan Gender identity: Female Physical Exam ED Vital Signs: Vital Signs - 24 hr 10/09/23 19:26 10/09/23 22:43 Temperature 97.3 F 97.3 F Pulse Rate 73 73 Respiratory Rate 14 14 Blood Pressure 182/87 H 182/87 H Pulse Oximetry 99 99 Oxygen Delivery Method Room Air Room Air BMI result Body Mass Index 26.6 Vital signs stable. Not hypoxic or tachycardic. Const General: cooperative, healthy appearing, comfortable and no acute distress Orientation/consciousness: patient oriented x3 Limitations: no limitations HENMT Head: Yes normal to inspection, Yes normocephalic and Yes atraumatic Eyes General: appearance normal, both eyes and all related structures Conjunctivae: conjunctivae normal Sclerae: sclerae normal Pupils: Equal, round and reactive pupils present Neck Neck: Yes normal visual inspection and Yes full ROM Resp Effort & Inspection: normal respiratory effort and able to speak in complete sentences Auscultation: clear to auscultation bilaterally Cardio Rate: regular rate Rhythm: regular rhythm Skin General skin exam: no rashes or lesions noted Neuro Other: Strength 5/5 intact throughout.?Sensation intact to light touch.? Neurovascular intact distally.? General: patient oriented x3, gait normal and moves all extremities Cranial nerves: Yes Equal, round and reactive pupils present Extrem Other: + no noted swelling or erythema noted to right lower extremity. Minimal right calf tenderness to palpation. No overlying warmth or fluctuance. Ambulating with steady gait. 2+ PT/DP and popliteal pulse intact. No pitting or peripheral edema. General: Yes normal to inspection Course Course Course Narrative: RME performed by Chelita Young PA-C. Patient is a 53 year old assigned female at presenting to the emergency department with right calf pain and swelling. Detailed physical exam and review of systems are deferred to the ukrainian folk arts instructor. Imaging ordered. Patient placed back in the waiting room pending room availability and results. Reevaluation(s) Reevaluation #1: 2230-- x-ray right tib-fib, ankle and foot without acute fracture however there soft tissue edema noted at the ankle. Venous duplex ultrasound of right lower extremity does not reveal a DVT however shows a small right popliteal cyst. Oskar wrap applied to right knee for comfort. Discussed all workup results with dean marmolejo. Patient has remained stable throughout ED visit today. Discussed worrisome signs and symptoms and when to return to the ED. All questions answered at this time. Patient is agreeable with disposition and stable for discharge. Procedures Orthopedic Splinting/Casting Injury #1: Side: right Lower Extremity Injury Location: ankle Lower Extremity Immobilizer: Oskar wrap Medical Decision Making Medical Decision Making MDM Narrative: 53 year old namibian speaking female with past medical history significant for asthma, diabetes, hypertension presents to the ED today for evaluation of right calf discomfort x3 days. Patient hypertensive, vitals otherwise WNL. She is nontoxic appearing in no acute distress. On exam, no noted swelling or erythema noted to right lower extremity. Minimal right calf tenderness to palpation. No overlying warmth or fluctuance. Ambulating with steady gait. 2+ PT/DP and popliteal pulse intact. No pitting or peripheral edema. RRR. Lungs are CTA bilaterally. No JVD. Differential diagnosis includes Yanez's cyst, DVT, fracture, MSK sprain/strain Plan for imaging and pain control. Differential Diagnosis Differential Diagnoses: The differential diagnosis associated with the presentation includes as above. Admission/Observation Not indicated Independent Interpretation I performed an independent interpretation of an: Plain X-Ray and Ultrasound Interpretation: X-ray of right tib-fib, ankle, foot without fracture, agree with radiologist's interpretation. Ultrasound right lower extremity without DVT, agree with radiologist's interpretation. Radiology Impression Discussion of test interpretation with radiology: I have reviewed the radiologist's reading. Radiologist Impression: EXAMINATION: US VENOUS ULTRASOUND WITH DOPPLER LOWER EXTREMITY, RIGHT CLINICAL INFORMATION: Right lower extremity pain and edema. Evaluate for a deep vein thrombosis. COMPARISON: None available. TECHNIQUE: Ultrasound of the deep veins is performed from the hip to the calf with compression sonography and color and pulse Doppler assessment. Spectral analysis with color-flow imaging is performed. FINDINGS: There is normal venous compression and respiratory variation and augmented flow. The visualized common femoral vein, superficial femoral vein, profunda femoral vein, popliteal vein, and the trifurcation region shows no evidence of deep venous thrombosis. Within the right popliteal fossa there are small complex cysts measuring 2.4 x 0.5 x 1.2 cm and 7.2 x 1.5 x 1.4 cm, likely indicating a Yanez's cyst. Prominent right inguinal lymph node measuring up to 2.7 x 0.6 x 1.6 cm with normal architecture. If the patient's symptoms persist, followup ultrasound in 5 days 7 days might be of value to exclude proximal propagation from a non-visualized calf vein. US/US venous duplex LE RT IMPRESSION: No DVT demonstrated in the right lower extremity. A small right popliteal cyst. Prominent right inguinal lymph node with normal architecture. -- EXAMINATION: XR TIBIA AND FIBULA, RIGHT XR ANKLE, RIGHT XR FOOT, RIGHT CLINICAL INFORMATION: Injury with right lower extremity pain COMPARISON: None available. TECHNIQUE: AP and lateral views of the right tibia and fibula were obtained. AP, lateral, and mortise views of the right ankle. AP, lateral, and oblique views of the right foot. FINDINGS: TIBIA/FIBULA: The bones and proximal soft tissues are normal. No fracture. No osseous lesions. ANKLE: Generalized soft tissue edema at the ankle No fracture. Alignment is anatomic. No erosions. Joint spaces are maintained. FOOT: No fracture. Alignment is anatomic. No erosions. Joint spaces are maintained. Soft tissues are normal. XR/XR tibia fibula RT 2V IMPRESSION: No acute osseous process. Soft tissue edema at the ankle. Independent Historian Clinical information obtained from an independent historian. History obtained from or confirmed by: Spouse () External Record Review External record reviewed: Inpatient record, Office record, Outpatient record, Prior outpatient labs, Prior outpatient radiology, Primary care record and Outside ED record Prescription Management I considered prescription management with: Pain Medication Social Determinants Patient?s care significantly limited by Social Determinants of Health including: Other Social Determinant of Health Critical Care Time Critical Care Time Critical Care Time: No Discharge Plan Discharge Clinical Impression: Unruptured cyst of right popliteal space Patient Disposition: Home, Self-Care Instructions: Bakers Cyst (ED) Additional Instructions: The xrays of your right lower leg do not demonstrate fracture. The ultrasound of your right leg shows a small cyst behind your knee. No evidence of clot. You have been provided with an OSKAR wrap for compression. Keep this applied to your right knee throughout the day to help with discomfort. Take tyelnol and motrin at home as needed for pain/ discomfort. Follow up with PCP as needed. Return with new or worsening symptoms. In the case of an emergency call 911. Prescriptions: No Action montelukast [Singulair] 10 mg tablet 10 mg PO BEDTIME 30 Days Qty: 30 11RF docusate sodium [Colace] 100 mg capsule 100 mg PO BID Qty: 30 0RF amlodipine 2.5 mg tablet 2.5 mg PO QAM loratadine 10 mg tablet 10 mg PO DAILY albuterol sulfate [ProAir HFA] 90 mcg/actuation HFA aerosol inhaler 2 puff inhalation Q6H PRN fluticasone propionate 50 mcg/actuation spray,suspension 2 spray intranasal DAILY 30 Days Qty: 15.8 11RF fluticasone propion-salmeterol [Advair HFA] 45-21 mcg/actuation HFA aerosol inhaler 2 puff inhalation BID 30 Days Qty: 12 11RF Referrals: Shanon Harris MD [Primary Care Provider] - Interventions: ED Discharge Assessment Last Done: 10/09/23 22:43 Discharge Date/Time: 10/09/23 22:45 Print Language: [place]
[2023-10-09 19:26] VITALS: BP 182/87; PULSE 73; RESP 14; TEMP 36.3; O2SAT 99; BMI 26.6
[2023-10-09 22:43] VITALS: BP 182/87; PULSE 73; RESP 14; TEMP 36.3; O2SAT 99
== END 2023-10-09 22:45 | disposition home or self-care (01) ==
PROVIDERS: Emergency Provider Emergency Medicine; PCP Family Medicine
DX: M71.21 Synovial cyst of popliteal space [Baker], right knee (principal); M79.604 Pain in right leg; E11.9 Type 2 diabetes mellitus without complications; I10 Essential (primary) hypertension; J45.909 Unspecified asthma, uncomplicated; Z79.899 Other long term (current) drug therapy
CPT/HCPCS: 73590; 73610; 73630; 93971; 99283; 99284

== ENCOUNTER 2024-03-27 14:12 | Outpatient (REF) | payer MEDICAID, SELFPAY ==
[2024-03-27 16:55] LABS: Alanine Aminotransferase 45 U/L (0-31); Albumin Level 4.3 g/dL (3.5-5.0); Anion Gap 11 (12-20); Aspartate Amino Transferase 39 U/L (5-31); Bilirubin Total 0.4 mg/dL (0.0-1.0); Blood Urea Nitrogen 14 mg/dL (9-16); Calcium 9.8 mg/dL (8.4-10.2); Carbon Dioxide 26 mmol/L (22-29); Chloride 106 mmol/L (96-108); Cholesterol 146 mg/dL (<200); Estimated Glomerular Filt Rate > 60; Glucose Random 102 mg/dL (60-115); HDL Cholesterol 43 mg/dL (>40); LDL Cholesterol Calculated 86 mg/dL (<100); Sodium 139 mmol/L (135-145); Total Protein 8.1 g/dL (6.5-8.0); Triglycerides 88 mg/dL (<150)
[2024-03-27 17:05] LABS: Alkaline Phosphatase 136 U/L (39-117)
[2024-03-27 17:08] LABS: Reflex LDLD? No
[2024-03-27 17:57] LABS: Creatinine Urine 18.25 mg/dL; Microalbumin Urine < 5.0 mg/L
== END 2024-03-27 14:13 | disposition home or self-care (01) ==
LOC: HO.HHCL 14:12
PROVIDERS: Visit Provider Family Medicine
DX: I10 Essential (primary) hypertension (principal); E11.9 Type 2 diabetes mellitus without complications
CPT/HCPCS: 36415; 80053; 80061; 82043; 82570

== ENCOUNTER 2024-04-12 08:33 | Outpatient (REF) | payer MEDICAID, SELFPAY ==
--- OUTSIDE RECORDS SUMMARY | 2024-04-12 08:44 | XMS_ITS | Clinical Summary ---
Author Organization [employer] Address [address] [facility] [address] [place] [address] Care Team Providers Care Sweeper Driver Name Role Phone Shanon Harris MD Primary Care Provider [phone] Allergies Active Allergy Reactions Criticality Noted Date Comments Aspirin 03/04/2016 Other reaction(s): rash Clindamycin Unknown 08/18/2012 Penicillins 08/18/2012 Other reaction(s): Other (see comments) Medications liver oil-zinc oxide (Desitin) 40 % ointment Apply a small amount of cream to itchy, irritated skin outside the vagina 3x a day 12/28/19 20 Active polyethylene glycol, PEG, 3350 (Miralax) 17 g packet TAKE 17 GRAMS BY MOUTH TWICE DAILY 08/02/19 22 Active metFORMIN (Glucophage) 500 MG tablet TAKE 1 TABLET BY MOUTH TWICE A DAY WITH MORNING AND EVENING MEALS 05/02/19 22 Active lactulose (Chronulac) 10 GM/15ML solution TAKE 15 ML BY MOUTH DAILY NEEDED FOR LAXATIVE EFFECT 05/04/19 22 Active hydrocortisone (Anusol-HC) 2.5 % rectal cream Apply topically every 12 (twelve) hours. 01/04/20 20 Active fluticasone (Flonase) 50 MCG/ACT nasal spray spray 1 spray by intranasal route every day in each nostril 04/21/19 22 Active EPINEPHrine (EpiPen 2-Toby) 0.3 MG/0.3ML injection syringe Inject 0.3 mL into the shoulder, thigh, or buttocks. 05/24/19 19 Active docusate sodium (Colace) 100 MG capsule Take 100 mg by mouth 2 times daily. 05/04/19 22 Active montelukast (Singulair) 10 MG tablet Take 10 mg by mouth at bedtime. 06/10/19 Active loratadine (Claritin) 10 MG tabletIndicatio ns:Allergic rhinitis, unspecified seasonality, unspecified trigger TAKE 1 TABLET BY MOUTH EVERY DAY 90 tablet 1 11/14/19 23 Active COVID-19 Antigen Test kit Check as instructed 1 kit 03/23/19 24 Active Blood Pressure Monitor misc Check BP daily 1 each 10/27/19 24 Active albuterol 108 (90 Base) MCG/ACT inhaler Inhale 2 puffs every 4 (four) hours if needed for wheezing or shortness of breath. 18 g 1 03/27/19 25 Active Advair HFA 45-21 MCG/ACT inhaler Inhale 2 puffs 2 times daily. 12 g 11 03/27/19 25 Active Blood Glucose Monitoring Suppl (FreeStyle Lite) w/Device kit 1 kit before breakfast. 1 kit 03/27/19 25 Active FreeStyle lancets 1 each by Other route Once per day. Check blood glucose 100 each 3 03/27/19 25 Active Alcohol Swabs (Alcohol Prep) 70 % pads Check Blood sugar once daily 100 each 03/27/19 25 Active FREESTYLE LITE test strip Check blood sugar once daily 100 each 3 03/27/19 25 Active amLODIPine (Norvasc) 2.5 MG tabletIndicatio ns:Essential hypertension TAKE 1 TABLET BY MOUTH EVERY DAY IN THE MORNING DO NOT USE IF SYSTOLIC BLOOD PRESSURE LESS THAN 110 90 tablet 1 03/31/19 25 Active FREESTYLE LITE test strip TEST 4 TIMES A DAY 06/15/19 025 Discontinued(R eorder (will not trigger notification to Pharmacy)) Alcohol Swabs (Alcohol Prep) 70 % pads USE WITH BG CHECK 05/22/19 22 025 Discontinued(R eorder (will not trigger notification to Pharmacy)) albuterol 108 (90 Base) MCG/ACT inhaler 02/27/20 21 025 Discontinued(R eorder (will not trigger notification to Pharmacy)) Advair HFA 45-21 MCG/ACT inhaler Inhale 2 puffs 2 times daily. 06/10/19 23 025 Discontinued(R eorder (will not trigger notification to Pharmacy)) amLODIPine (Norvasc) 2.5 MG tabletIndicatio ns:Essential hypertension TAKE 1 TABLET BY MOUTH EVERY DAY IN THE MORNING DO NOT USE IF SYSTOLIC BLOOD PRESSURE LESS THAN 110 90 tablet 1 10/01/19 24 025 Discontinued Active Problems Problem Noted Date Diagnosed Date Transaminitis 04/02/2024 Assessment & Plan (04/02/2024 10:57 AM EST): - history of positive Hep C antibody, which was cleared naturally - most likely MASLD / fatty liver - continue working on lifestyle modifications - check hepatitis profile - Hep A immunity not available; will check and immunize if non-reactive - complete Hep B immunizations Dental caries 04/09/2023 Dental calculus 04/09/2023 Nasal congestion 08/11/2022 Assessment & Plan (08/11/2022 12:23 PM EDT): Negative COVID test today Inspiratory wheezing 04/12/2022 Assessment & Plan (04/12/2022 12:25 PM EST): - O2 sat 95% - Last CXR in 2017 showed diffuse prominence of the background interstitium. This finding is nonspecific but may reflect an element of small airway disease. No consolidation - refer to special officer automat for further evaluation Diabetes mellitus, type 2 04/08/2022 Assessment & Plan (04/02/2024 10:52 AM EST): Dx type 2 DM on January 15, 2020 by RGB > 500 -A1C > 14% on 01/23/20 -A1C 6.0% on 10/26/23 -A1C 6.6% on 03/27/24 -Currently managing with lifestyle modifications -Treatment Hx: Metformin 1 g bid after Dx; tapered down as she improved her diet, and completely discontinued metformin on 04/21/21 -Comprehensive eye exam: 03/11/20 at [facility] eye care, no diabetic retinopathy -Foot exam 07/22/23 -Last Lipid profile 03/27/24, She does not want to start statin -Last microalbuminuria test on 03/27/24, no microalbuminuria -Follow-up in 4-6 months or sooner prn Assessment & Plan (10/26/2023 2:06 PM EDT): Dx type 2 DM on January 15, 2020 by RGB > 500 -A1C > 14% on 01/23/20 -A1C 6.0% on 10/26/23 -Currently managing with lifestyle modifications -Treatment Hx: Metformin 1 g bid after Dx; tapered down as she improved her diet, and completely discontinued metformin on 04/21/21 -Comprehensive eye exam: 03/11/20 at [facility] eye care, no diabetic retinopathy -Foot exam 07/22/23 -Last Lipid profile 03/16/23 TC 137; TG 42; HDL 46; LDL 83, She does not want to start statin -Last microalbuminuria test on 08/11/22 UACR 8 -Follow-up in 4-6 months or sooner prn Assessment & Plan (07/22/2023 10:37 AM EDT): Dx type 2 DM on January 15, 2020 by RGB > 500 -A1C > 14% on 01/23/20 -A1C 6.0% on 07/22/23 -Currently managing with lifestyle modifications -Treatment Hx: Metformin 1 g bid after Dx; tapered down as she improved her diet, and completely discontinued metformin on 04/21/21 -Comprehensive eye exam: 03/11/20 at [facility] eye care, no diabetic retinopathy -Foot exam 07/22/23 -Last Lipid profile 03/16/23 TC 137; TG 42; HDL 46; LDL 83, She does not want to start statin -Last microalbuminuria test on 08/11/22 UACR 8 -Follow-up in 4-6 months or sooner prn Assessment & Plan (03/28/2023 9:51 AM EST): Dx type 2 DM on January 15, 2020 by RGB > 500 -A1C > 14% on 01/23/20 -A1C 6.0% on 12/17/22, increased slightly from, 5.5% on 04/08/22, stable since JULY 2021 -Currently managing with lifestyle modifications -Treatment Hx: Metformin 1 g bid after Dx; tapered down as she improved her diet, and completely discontinued metformin on 04/21/21 -Comprehensive eye exam: 03/11/20 at [facility] eye care, no diabetic retinopathy -Foot exam 04/07/22 -Last Lipid profile 03/16/23 TC 137; TG 42; HDL 46; LDL 83, She does not want to start statin -Last microalbuminuria test on 08/11/22 UACR 8 -Follow-up in 4-6 months or sooner prn Assessment & Plan (12/17/2022 12:46 PM EDT): Dx type 2 DM on January 15, 2020 by RGB > 500 -A1C > 14% on 01/23/20 -A1C 6.0% on 12/17/22, increased slightly from, 5.5% on 04/08/22, stable since JULY 2021 -Treatment Hx: Metformin 1 g bid after Dx; tapered down as she improved her diet, and completely discontinued metformin on 04/21/21 -Comprehensive eye exam: 03/11/20 at [facility] eye care, no diabetic retinopathy -Foot exam 04/07/22 -Last Lipid profile 04/08/22 TC 140; TG 61; HDL 53; LDL 73 --She does not want to start statin -Last microalbuminuria test on 04/22/21 UACR 13 --Follow-up in 4 months Assessment & Plan (08/11/2022 12:19 PM EDT): Dx type 2 DM on January 15, 2020 by RGB > 500 -A1C > 14% on 01/23/20 -A1C 5.5% on 04/08/22, stable since JULY 2021 -Treatment Hx: Metformin 1 g bid after Dx; tapered down as she improved her diet, and completely discontinued metformin on 04/21/21 -Comprehensive eye exam: 03/11/20 at [facility] eye care, no diabetic retinopathy -Foot exam 04/07/22 -Last Lipid profile 04/08/22 TC 140; TG 61; HDL 53; LDL 73 --She does not want to start statin -Last microalbuminuria test on 04/22/21 UACR 13 --Follow-up in 4 months Assessment & Plan (04/12/2022 12:22 PM EST): Dx type 2 DM on January 15, 2020 by RGB > 500 -A1C > 14% on 01/23/20 -A1C 5.5% on 11/25/21, stable from 5.6% on 08/12/21 -Treatment Hx: Metformin 1 g bid after Dx; tapered down as she improved her diet, and completely discontinued metformin on 04/21/21 -Comprehensive eye exam: 03/11/20 at [facility] eye care, no diabetic retinopathy -Foot exam 04/07/22 -Last Lipid profile 04/22/21 TC 137; TG 48; HDL 44; LDL 79 --She does not want to start statin -Last microalbuminuria test on 04/22/21 UACR 13 --Follow-up in 4 months Angiomyolipoma of kidney 08/19/2017 Assessment & Plan (03/27/2024 1:55 PM EST): -s/p Embolization of angiomyolipoma 06/04/[address] 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 - most recent MRI on 03/16/23 showed 3.3 cm angiolipoma in the upper pole of right kidney, slightly exophytic, smaller in size. There is another stable small angiolipoma in the lower pole of right kidney. Assessment & Plan (10/26/2023 2:06 PM EDT): -s/p Embolization of angiomyolipoma 06/04/[address] 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 - most recent MRI on 03/16/23 showed 3.3 cm angiolipoma in the upper pole of right kidney, slightly exophytic, smaller in size. There is another stable small angiolipoma in the lower pole of right kidney. Assessment & Plan (07/22/2023 10:54 AM EDT): -s/p Embolization of angiomyolipoma 06/04/[address] 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 - most recent MRI on 03/16/23 showed 3.3 cm angiolipoma in the upper pole of right kidney, slightly exophytic, smaller in size. There is another stable small angiolipoma in the lower pole of right kidney. Assessment & Plan (03/28/2023 9:47 AM EST): -s/p Embolization of angiomyolipoma 06/04/[address] 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 - most recent MRI on 03/16/23 showed 3.3 cm angiolipoma in the upper pole of right kidney, slightly exophytic, smaller in size. There is another stable small angiolipoma in the lower pole of right kidney. Assessment & Plan (12/17/2022 12:43 PM EDT): -s/p Embolization of angiomyolipoma 06/04/[address] 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 Assessment & Plan (08/11/2022 12:03 PM EDT): -s/p Embolization of angiomyolipoma 06/04/[address] Fuentes -seen by furrier apprentice on 07/17/21. -pt is recommended to have MRI -f/u with Dr. Fuentes, next appt TBD Assessment & Plan (04/08/2022 6:24 AM EST): -s/p Embolization of angiomyolipoma 06/04/[address] Fuentes -seen by furrier apprentice on 07/17/21. -pt is recommended to have MRI -f/u with Dr. Fuentes, next appt TBD Essential hypertension 08/19/2017 Assessment & Plan (03/27/2024 1:54 PM EST): -Goal BP < 140/90 per JNC-8, < 130/80 per ACC/AHA guideline. BP at goal today; BP within acceptable range at home. -Known white-coat HTN. -Continue lifestyle modifications -Work on stress reduction -Continue amlodipine to 2.5 mg. Hold amlodipine if systolic BP < 110. -Tx Hx: Amlodipine decreased from 10mg to 5mg in August 2021, further decrease in March 2022 -follow-up in 6 months or sooner prn. Assessment & Plan (10/26/2023 2:05 PM EDT): -Goal BP < 140/90 per JNC-8, < 130/80 per ACC/AHA guideline. BP at goal today; BP within acceptable range at home. -Known white-coat HTN. -Continue lifestyle modifications -Work on stress reduction -Continue amlodipine to 2.5 mg. Hold amlodipine if systolic BP < 110. -Tx Hx: Amlodipine decreased from 10mg to 5mg in August 2021, further decrease in March 2022 -follow-up in 6 months or sooner prn. Assessment & Plan (07/22/2023 10:53 AM EDT): -Goal BP < 140/90 per JNC-8, < 130/80 per ACC/AHA guideline. BP at goal today; BP within acceptable range at home. -Known white-coat HTN. -Continue lifestyle modifications -Work on stress reduction -Continue amlodipine to 2.5 mg. Hold amlodipine if systolic BP < 110. -Tx Hx: Amlodipine decreased from 10mg to 5mg in August 2021, further decrease in March 2022 -follow-up in 6 months or sooner prn. Assessment & Plan (03/28/2023 9:45 AM EST): -Goal BP < 140/90 per JNC-8, < 130/80 per ACC/AHA guideline. BP at goal today; BP within acceptable range at home. -Known white-coat HTN. -Continue lifestyle modifications -Work on stress reduction -Continue amlodipine to 2.5 mg. Hold amlodipine if systolic BP < 110. -Tx Hx: Amlodipine decreased from 10mg to 5mg in August 2021, further decrease in March 2022 -follow-up in 6 months or sooner prn. Assessment & Plan (12/17/2022 12:47 PM EDT): -Goal BP < 140/90 per JNC-8, < 130/80 per ACC/AHA guideline. BP at goal today; BP within acceptable range at home. -Known white-coat HTN. -Continue lifestyle modifications -Work on stress reduction -Continue amlodipine to 2.5 mg. Hold amlodipine if systolic BP < 110. -Tx Hx: Amlodipine decreased from 10mg to 5mg in August 2021, further decrease in March 2022 -follow-up in 6 months or sooner prn. Assessment & Plan (08/20/2022 11:07 AM EDT): -Goal BP < 140/90 per JNC-8, < 130/80 per ACC/AHA guideline. BP at goal today; BP within acceptable range at home. -Known white-coat HTN. -Continue lifestyle modifications -Work on stress reduction -Continue amlodipine to 2.5 mg. Hold amlodipine if systolic BP < 110. -Tx Hx: Amlodipine decreased from 10mg to 5mg in August 2021, further decrease in March 2022 -follow-up in 6 months or sooner prn. Assessment & Plan (04/12/2022 12:20 PM EST): -Goal BP < 140/90 per JNC-8, < 130/80 per ACC/AHA guideline. BP within acceptable range at home. -Known white-coat HTN. -Continue lifestyle modifications -Work on stress reduction -Decrease amlodipine to 2.5 mg. Hold amlodipine if systolic BP < 110. --Tx Hx -Amlodipine decreased from 10mg to 5mg from August 2021, further decrease today, 04/07/22 -follow-up in 6 months or sooner prn. Allergic rhinitis 12/18/2014 Assessment & Plan (03/27/2024 1:55 PM EST): - continue flonase, loratadine and montelukast Assessment & Plan (07/22/2023 10:54 AM EDT): - continue flonase, loratadine and montelukast Assessment & Plan (12/18/2022 11:17 AM EDT): - continue flonase, loratadine and montelukast Assessment & Plan (08/20/2022 11:08 AM EDT): - continue flonase and loratadine - prescribed montelukast by special officer automat, but has not picked up yet Assessment & Plan (04/08/2022 6:26 AM EST): - continue flonase and loratadine Asthma 12/18/2014 Assessment & Plan (03/27/2024 1:54 PM EST): - Following with [facility], last seen on 08/28/22. Next appointment in Apr 2023 - Treatment Hx: Flovent Changed to Advair HFA + Singulair added in May 2022 - Continue Advair HFA and montelukast - Advised to get her lab done so that special officer automat can assess if pt will benefit from biologic Tx. - follow-up with [facility] as scheduled - follow-up with PCP in 4-6 mo Assessment & Plan (10/26/2023 2:05 PM EDT): - Following with [facility], last seen on 08/28/22. Next appointment in Apr 2023 - Treatment Hx: Flovent Changed to Advair HFA + Singulair added in May 2022 - Continue Advair HFA and montelukast - Advised to get her lab done so that special officer automat can assess if pt will benefit from biologic Tx. - follow-up with [facility] as scheduled - follow-up with PCP in 4-6 mo Assessment & Plan (07/22/2023 10:53 AM EDT): - Following with [facility], last seen on 08/28/22. Next appointment in Apr 2023 - Treatment Hx: Flovent Changed to Advair HFA + Singulair added in May 2022 - Continue Advair HFA and montelukast - Advised to get her lab done so that special officer automat can assess if pt will benefit from biologic Tx. - follow-up with [facility] as scheduled - follow-up with PCP in 4-6 mo Assessment & Plan (03/28/2023 9:45 AM EST): - Following with [facility], last seen on 08/28/22. Next appointment in Apr 2023 - Treatment Hx: Flovent Changed to Advair HFA + Singulair added in May 2022 - Continue Advair HFA and montelukast - Advised to get her lab done so that special officer automat can assess if pt will benefit from biologic Tx. - follow-up with [facility] as scheduled - follow-up with PCP in 4-6 mo Assessment & Plan (12/18/2022 9:59 AM EDT): - Following with [facility], last seen on 08/28/22 - Treatment Hx: Flovent Changed to Advair HFA + Singulair added in May 2022 - Continue Advair HFA and montelukast - Advised to get her lab done so that special officer automat can assess if pt will benefit from biologic Tx. - follow-up with [facility] as scheduled - follow-up with PCP in 4-6 mo Assessment & Plan (08/20/2022 11:05 AM EDT): Seen by [facility] on 06/09/22 -Flovent Changed to Advair HFA + Singulair added -she hasn't picked up ADVAIR or singulair -advised to check with pharmacy about new medication -follow-up with [facility] as scheduled -follow-up with PCP in 4-6 months Assessment & Plan (04/08/2022 6:25 AM EST): -Continue Flovent 110mcg BID. -Continue Albuterol prn. -PFT on 10/07/21, inconclusive for Asthma, but likely. Recommended methacholine challenge test. Anxiety 08/18/2012 Assessment & Plan (04/02/2024 10:50 AM EST): - She is aware of her symptoms and condition. - She does not want to take a medication or engage in counseling. 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 Chronic back pain 08/18/2012 Medullary sponge kidney 08/18/2012 Assessment & Plan (03/27/2024 1:55 PM EST): - following with furrier apprentice Assessment & Plan (10/26/2023 2:06 PM EDT): - following with furrier apprentice Assessment & Plan (07/22/2023 10:54 AM EDT): - following with furrier apprentice Assessment & Plan (03/28/2023 9:46 AM EST): - following with furrier apprentice Vitamin D deficiency 08/18/2012 Resolved Problems Problem Noted Date Diagnosed Date Resolved Date Impaired fasting glucose 02/22/2018 Hepatitis C antibody test positive 08/18/2012 03/26/2024 Overview (03/26/2024): - reactive in 2008, negative in 2018 Encounters Date Type Department Care Team Description 04/04/2024 Telephone [facility] [address] [place] [address] Marco Antonio Morales, [facility] 03/31/[address] [address] Shanon Harris MD Essential hypertension 03/28/[address] [address] Shanon Harris MD Results 03/27/2024 1:45 PM EST Office Visit [address] [address] Shanon Harris MD Moderate persistent asthma without complication (Primary Dx); Essential hypertension; Medullary sponge kidney; Angiomyolipoma of kidney; Type 2 diabetes mellitus without complication, without long-term current use of insulin ([facility]); Allergic rhinitis, unspecified seasonality, unspecified trigger; Anxiety; Hepatitis C antibody test positive; Transaminitis 03/27/2024 Orders Only [address] [address] Shanon Harris MD Transaminitis (Primary Dx) 03/27/2024 Travel 03/24/[address] [address] Shayla Jay MA chart prep 03/08/[address] [address] Shayla Jay MA march recall from Last 3 Months Immunizations Name Administration Dates Next Due Hep A, ped/adol, 2 dose 10/04/2008 Hep B, Adolescent or Pediatric 12/19/2008,2008 Influenza injectable quadrivalent preservative f ree 02/01/2020,05/23/2018 Pneumococcal Polysaccharide PPSV23 02/01/2020 TD (adult), 2 Lf tetanus tox oid, preservative free, adsorbed 10/18/2008,03/22/1994 Tdap 05/23/2018 Family History Medical History Relation Name Comments Diabetes Father Glaucoma Father Diabetes Mother Relation Name Status Comments Father Mother Social History Tobacco Use Types Packs/Day Years Used Date Smoking Tobacco: Never Passive Smoke Exposure: Never Smokeless Tobacco: Never Tobacco Cessation:Counseling Given: Not Answered Alcohol Use Standard Drinks/Week Comments Never 0 (1 standard drink = 0.6 oz pur e alcohol) Depression Answer Date Recorded Patient Health Questionnaire-9 Score 5 10/26/2023 Patient Health Questionnaire-9 Score 5 10/26/2023 Last PHQ-9: Questionnaire Data Not on file 0 10/26/2023 Housing Stability Answer Date Recorded What is your housing situation today? I have barrykimberly da silva 07/14/[address] you li ve. Do you have problems with any of the following? None of the above 07/14/2023 Food Insecurity Answer Date Recorded Within the past 12 months, y ou worried that your food would run out before you got money to buy more: Never True 07/14/2023 Within the past 12 months,th e food you bought just didn't last and you didn't have enough money to get more: Never True Transportation Answer Date Recorded In the past 12 months, has l ack of transportation kept you from medical appts, meetings, work or from getting things needed for daily living? No 07/14/2023 Utilities Answer Date Recorded In the past 12 months, has t he electric, gas, oil or water company threatened to shut off services in your home? No 07/14/2023 Depression Answer Date Recorded Patient Health Questionnaire-2 Score 1 10/26/2023 Comments Unknown Sex and Gender Information Value Date Recorded Sex Assigned at Female 01/19/2022 10:14 AM EDT Legal Sex Female 10:14 AM EDT Gender Identity Female 01/19/2022 10:14 AM EDT Sexual Orientation Straight 01/19/2022 10 :14 AM EDT Last Filed Vital Signs Vital Sign Reading Time Taken Comments Blood Pressure 160/93 03/27/2024 2:02 PM EST Pulse 72 03/27/2024 1:52 PM EST Temperature 36.2 ??C (97.1 ??F) 03/27/2024 1:52 PM ES T Respiratory Rate 19 03/27/2024 1:52 PM EST Oxygen Saturation 98% 03/27/2024 1:52 PM EST Inhaled Oxygen Concentration - - Weight 70.9 kg (156 lb 6.4 oz) 03/27/2024 1:52 P M EST Height 160 cm (5' 3 ) 10/26/2023 1:57 PM EDT Body Mass Index 27.71 10/26/2023 1:57 PM EDT Plan of Treatment Health Maintenance Due Date Last Done Comments CT Colonography 1969 Colonoscopy 1969 FIT 1969 FOBT 1969 Sigmoidoscopy 1969 Alcohol/Substance Use Screening 1981 Hepatitis B Vaccines (1 of 3 - 19+ 3-dose series) 1988 12/19/2008, 10/04/2008 Zoster Vaccines (1 of 2) 07/03/2019 Pneumococcal Vaccine: Pediatrics (0 to 5 Years) and At-Risk Patients (6 to 64 Years) (2 of 2 - PCV) 01/31/2021 02/01/2020 Pap Smear 08/01/2023 07/31/2020 Dental Oral Exam 10/09/2023 04/09/2023 Dental Prophylaxis 10/09/2023 04/09/2023, 10/21/2018 COVID-19 Vaccine ( season) 2023 Influenza Vaccine (#1) 2023 02/01/2020, 2018 Dental X-Ray: Bitewings 04/10/2024 04/09/2023, 04/13 Diabetes: Hemoglobin A1C 04/27/2024 024, 07/22/2023, 12/17/2022, Additional history exists Eye Exam 06/29/2024 06/29/2022, 06/20, 06/29/2022, Additional history exists SDOH Screening 07/13/2024 07/14/2023 Diabetes: Foot Exam 07/21/2024 07/22/2023, 07/22/2023, 07/22/2023, Additional history exists Depression Screening 10/25/2024 10/26/2023, 10/26/19 Diabetes: Urine Protein Screening 03/27/2025 03/27/2024, 08/11/2022, 04/22/2021, Additional history exists Lipid Panel 03/27/2025 03/27/2024, 02/20, 04/08/2022, Additional history exists Tobacco Screening 04/02/2025 04/02/2024 Mammogram 07/30/2025 07/31/2023, 06/21, 06/16/2021, Additional history exists Cervical Cancer Screening 07/31/2025 HPV/Cotest 07/31/2025 07/31/2020, 07/20, 07/31/2020, Additional history exists Dental X-Ray: Full Mouth 04/10/2026 04/09/2023, 03/23 Colorectal Cancer Screening 08/11/2026 FIT DNA/Cologuard 08/11/2026 08/12/2023 DTaP/Tdap/Td Vaccines (2 - Td or Tdap) 05/23/2028 05/23/2018, 10/18/2008, 03/22/1994 RSV Patients and Patients Aged 60 years or older (1 - 1-dose 75+ series) 2044 Hepatitis A Vaccines Aged Out 10/04/2008 No long er eligible based on patient's age to complete this topic HIV Screening Completed 04/22/2021, 01/23/2020 Hepatitis C Screening Completed 04/22/2021, 020 HIB Vaccines Aged Out No longer eligi ble based on patient's age to complete this topic HPV Vaccines Aged Out No longer eligi ble based on patient's age to complete this topic IPV Vaccines Aged Out No longer eligi ble based on patient's age to complete this topic Meningococcal Vaccine Aged Out No sarwat marcos eligible based on patient's age to complete this topic RSV under 20 months Aged Out No longe r eligible based on patient's age to complete this topic Rotavirus Vaccines Aged Out No longer eligible based on patient's age to complete this topic Procedures Procedure Name Priority Date/Time Associated Diagnosis Comments LIPID PANEL WITH REFLEX TO DIRECT LDL Routine 03/27/2024 2:15 PM EST Type 2 diabetes mellitus without complication, without long-term current use of insulin (CMS/HCC) COMPREHENSIVE METABOLIC PANEL Routine 03/27/2024 2:15 PM EST Essential hypertension ALBUMIN, RANDOM URINE W/CREATININE Routine 03/27/2024 2:15 PM EST Type 2 diabetes mellitus without complication, without long-term current use of insulin (CMS/HCC) POCT GLUCOSE Routine 03/27/2024 1:57 PM EST Type 2 diabetes mellitus without complication, without long-term current use of insulin (CMS/HCC) POCT GLYCOSYLATED HEMOGLOBIN (HGB A1C) Routine 10/26/2023 1:54 PM EDT Type 2 diabetes mellitus without complication, without long-term current use of insulin (CMS/HCC) LAB COLOGUARD?? COLON CANCER SCREEN Routine 08/12/2023 5:03 PM EDT Colon cancer screening BI MAMMOGRAM SCREENING TOMOSYNTHESIS BILATERAL Routine 07/31/2023 10:10 AM EDT PROPHYLAXIS - ADULT Routine 04/09/2023 1 :00 PM EST Dental calculus DIAGNOSTIC - DIAGNOSTIC IMAGING - INTRAORAL - COMPREHENSIVE SERIES OF RADIOGRAPHIC IMAGES Routine 04/09/2023 1:00 PM EST Dental caries Dental calculus PERIODIC ORAL EVALUATION - ESTABLISHED PATIENT Routine 04/09/2023 1:00 PM EST ZZZ HISTORICAL HEPATITIS C AB W/REFL TO HCV RNA, QN, PCR Routine 04/22/2021 8:19 AM EST HIV 1/2 ANTIGEN/ANTIBODY, FOURTH GENERATION W/RFL Routine 04/22/2021 8:19 AM EST HM PAP/HPV Routine 07/31/2020 from Last 3 Months or Most Recently Relevant to Health Maintenance Results * Lipid Panel with Reflex to Direct LDL (03/27/2024 2:15 PM EST) Triglycerides 88 <150 mg/dL [facility] Comment:Desirable Triglyceri de: less than 150 mg/dLBorderline High Triglyceride 150-199 mg/dLHigh Triglyceride: 200-499 mg/dLVery High Triglyceride: greater than or equal to 5OO mg/dL Cholesterol 146 <200 mg/dL [facility] Comment:Desirable Cholestero l: less than 200 mg/dLBorderline High Cholesterol: 200-239 mg/dLHigh Cholesterol: greater than 239 mg/dL LDL Cholesterol Calculated 86 <100 mg/dL [facility] Comment:Desirable LDL: less than 100 mg/dLNear Optimal/Above Optimal LDL: 110- 129 mg/dLBorderline High LDL: 130-159 mg/dLHigh LDL: 160-189 mg/dLVery High LDL: greater than or equal to 190 mg/dL HDL Cholesterol 43 >40 mg/dL [facility] Comment:Desirable HDL: great er than 40 mg/dL Note: This HDL assay may give artificially low results in patients with liver disease. Blood 03/27/2024 2:15 PM EST 03/27/2024 4:19 PM EST us Shanon Harris MD LAB BLOOD ORDERABLES Final Resul t [facility] [address] [place] [address] [phone] * Albumin, Random Urine W/Creatinine (03/27/2024 2:15 PM EST) Creatinine, Urine 18.25 mg/dL [facility] Microalbumin Urine <5.0 mg/L [facility] Microalbum Creatinine Ratio Ur TNP <30 ug/mg cr [facility] Comment:Unable to calculate albumin/creatinine ratio due to lowmicroalbumin or creatinine result. Urine 03/27/2024 2:15 PM EST 03/27/2024 4:12 PM EST us Shanon Harris MD LAB URINE ORDERABLES Final Resul t [facility] [address] [place] [address] [phone] * (ABNORMAL) Comprehensive Metabolic Panel (03/27/2024 2:15 PM EST) Sodium 139 135 - 145 mmol/L [facility] Potassium 4.0 3.3 - 5.1 mmol/L [facility] Comment:Slight Hemolysis.Int erpret result with caution. Chloride 106 96 - 108 mmol/L [facility] Carbon Dioxide 26 22 - 29 mmol/L [facility] Anion Gap 11(L) 12 - 20 [facility] Urea Nitrogen (BUN) 14 9 - 16 mg/dL [facility] Creatinine, Serum 0.78 0.5 - 1.4 mg/dL [facility] Estimated Glomerular Filt Rate >60 [facility] Comment:Chronic Kidney Disea se: Estimated GFR < 60 mL/min/1.89l2Ykurko Kidney Disease: Estimated GFR < 15 mL/min/1.73m2 Glucose 102 60 - 115 mg/dL [facility] Calcium 9.8 8.4 - 10.2 mg/dL [facility] Bilirubin, Total 0.4 0.0 - 1.0 mg/dL [facility] Aspartate Amino Transferase 39(H) 5 - 31 U/L [facility] Comment:Slight Hemolysis.Int erpret result with caution. Alanine Aminotransferase 45(H) 0 - 31 U/L [facility] Total Protein 8.1(H) 6.5 - 8.0 g/dL [facility] Albumin Level 4.3 3.5 - 5.0 g/dL [facility] Alkaline Phosphatase 136(H) 39 - 117 U/L [facility] Blood Venous blood specimen / Unknown 03/27/2024 2:15 PM EST 03/27/2024 4:19 PM EST Shanon Harris MD LAB BLOOD ORDERABLES Final Resul t [facility] [address] [place] [address] [phone] * POCT glucose manually resulted (03/27/2024 1:57 PM EST) Glucose Blood, POC 109 60 - 200 mg/dL QC Media Lot # [id number] Lot# Expiration Date [id number] Blood Capillary blood specimen / Unknown 03/27/2024 1:57 PM EST Shanon Harris MD POINT OF CARE TEST ENTER/EDIT OR DERABLES Final Result * POCT glycosylated hemoglobin (Hgb A1c) (10/26/2023 1:54 PM EDT) Pathologist [facility] [place] Hemoglobin A1C 6.0 4.0 - 6.0 % QC Media Lot # [id number] Lot# Expiration Date ,,026 Blood Capillary blood specimen / Unknown 10/26/2023 1:54 PM EDT Shanon Harris MD POINT OF CARE TEST ENTER/EDIT OR DERABLES Final Result * Cologuard?? colon cancer screening (08/12/2023 5:03 PM EDT) Cologuard Result Negative Negative 08/20/19 24 2:18 AM EDT [facility] (CLIA #:[id number]) Comment: NEGATIVE TEST RESULT. A negative Cologuard result indicates a low likelihood that a colorectal cancer (CRC) or advanced adenoma (adenomatous polyps with more advanced pre-malignant features) ??is present. The chance that a person with a negative Cologuard test has a colorectal cancer is less than 1 in 1500 (negative predictive value >99.9%) or has an ??advanced adenoma is less than ??5.3% (negative predictive value 94.7%). These data are based on a prospective cross-sectional study of 10,000 individuals at average risk for colorectal cancer who were screened with both Cologuard and colonoscopy. (Eliazar Love al, N Engl J Med 2014;370(14):1286- 1297) The normal value (reference range) for this assay is negative. COLOGUARD RE-SCREENING RECOMMENDATION: Periodic colorectal cancer screening is an important part of preventive healthcare for asymptomatic individuals at average risk for colorectal cancer. ??Following a negative Cologuard result, the [place] [employer] and U.S. Multi-Society Task Force screening guidelines recommend a Cologuard re-screening interval of 3 years. References: [place] [employer] Guideline for Colorectal Cancer Screening: https://www.cancer.org/cancer/qbphu-dhpefj-sezini/naxhfyhoq-klfddrokp-pjzxvfz/ac s-rec ommendations.html.; Jerrod DK, Tavon CR, Guadalupe CortezK, Colorectal Cancer Screening: Recommendations for Physicians and Patients from the U.S. Multi-Society Task Force on Colorectal Cancer Screening , Am J Gastroenterology 2017; 112:0928-3957. TEST DESCRIPTION: Composite algorithmic analysis of stool DNA-biomarkers with hemoglobin immunoassay. ?? Quantitative values of individual biomarkers are not reportable and are not associated with individual biomarker result reference ranges. Cologuard is intended for colorectal cancer screening of adults of either sex, 45 years or older, who are at average-risk for colorectal cancer (CRC). Cologuard has been approved for use by the U.S. FDA. The performance of Cologuard was established in a cross sectional study of average-risk adults aged 50-84. Cologuard performance in patients ages 45 to 49 years was estimated by sub-group analysis of near-age groups. Colonoscopies performed for a positive result may find as the most clinically significant lesion: colorectal cancer [4.0%], advanced adenoma (including sessile serrated polyps greater than or equal to 1cm diameter) [20%] or non- advanced adenoma [31%]; or no colorectal neoplasia [45%]. These estimates are derived from a prospective cross-sectional screening study of 10,000 individuals at average risk for colorectal cancer who were screened with both Cologuard and colonoscopy. (Eliazar Love al, N Engl J Med 2014;370(14):5909-2537.) Cologuard may produce a false negative or false positive result (no colorectal cancer or precancerous polyp present at colonoscopy follow up). A negative Cologuard test result does not guarantee the absence of CRC or advanced adenoma (pre-cancer). The current Cologuard screening interval is every 3 years. ([place] [employer] and U.S. Multi-Society Task Force). Cologuard performance data in a 10,000 patient pivotal study using colonoscopy as the reference method can be accessed at the following location: www.[employer]/results. Additional description of the Cologuard test process, warnings and precautions can be found at www.cologDoctor Funrd.com. Stool specimen (specimen) 08/12/2023 5:03 PM EDT 08/14/2023 10:50 AM EDT Shanon Harris MD LAB MOLECULAR DIAGNOSTICS ORDERA BLES Final Result [facility] (CLIA #:[id number]) [address] [place] [address], * BI Mammogram Screening Tomosynthesis Bilateral (07/31/2023 10:10 AM EDT) Anatomical Region Laterality Modality Breast Bilateral Mammography 07/31/2023 10:1 0 AM EDT Narrative 08/22/2023 7:52 PM EDT ? [facility] [place] ? [address] ?[place] [address] ? Mammography Report ? Signed with Addenda ? Patient: Manjit,Mari ?MR#: [id number] ?? 97 ? : 1970 ?Acct:[id number] ? Age/Sex: 53 / F ?ADM Date: 05/11/24 ? Loc: HO.MAMMO ? Attending Dr: Shanon Harris MD ? Ordering Physician: Shanon Harris MD ?Results: 0Incomple ?? te: Needs Additional Imaging Evaluation ? Date of Service: 07/31/23 ?Follow Up: Additional Imagi ?? ng ? Procedure(s): MM tomosynthesis screening BI ?? Accession Number(s): [id number] ? cc: Shanon Harris MD ?ADDENDUM ?? ADDENDUM: ? OVERALL ASSESSMENT: ?? BI-RADS 0 - Incomplete: Needs additional Imaging. ? RECOMMENDATION: ?? Additional Imaging required ? Addendum Dictated By: ?Yani Nava MD ? Addendum Signed By: ? <Electronically signed by Yani Nava MD in OV> ? 08/23/23 0709 ?? Addendum Cosigned By: ? DD/ /12/1030 ? TD/TT: / ? EXAMINATION: ?? MM SCREENING DIGITAL BREAST TOMOSYNTHESIS, BILATERAL ? CLINICAL INFORMATION: ? Screening. Asymptomatic. ? COMPARISON: ?? Mammography: This study is compared with prior exams dating back to ?? 2019. ?? TECHNIQUE: ?? Digital breast tomosynthesis is performed in both the craniocaudal and ?? mediolateral oblique views along with computer-aided detection (CAD). ?? Synthesized 2D images are generated from the tomosynthesis. ? FINDINGS: ?? The breasts are heterogeneously dense, which may obscure small masses ?? (ACR BI-RADS breast composition Category c). ? In the lateral most aspect of the fat glandular interface of the left ?? breast, there is an asymmetry for which additional mammographic and ?? targeted sonographic imaging is advised. ? In the right breast, there are no significant masses, abnormal ?? calcifications, or other abnormalities. ? MM/MM tomosynthesis screening BI ?? IMPRESSION: ?? Asymmetry of the left breast warrants additional mammographic and ?? targeted sonographic imaging. ? No mammographic signs of malignancy right breast. ? ASSESSMENT: ? BI-RADS BI-RADS 1 - Negative ? RECOMMENDATION: ?? 1. Additional views of the left breast ?? 2. Targeted ultrasound if warranted after review of the additional ?? views. ?? 3. Radiology department staff will contact the patient for additional ?? imaging. ? Additional Imaging required ? This examination should not preclude the clinical evaluation of a ?? suspicious palpable abnormality. ? This patient's information was entered into a reminder system with a ?? target due date for their next mammogram. ? Dictated By: ?Yani Nava MD ? Signed By: ?<Electronically signed by Yani Nava MD in OV> ? 08/22/23 1949 ? DD/ 1010 ? TD/TT: ? Orthoptist: ? Procedure Note Donmatt, Image - 08/23/2023 [facility] [address] [place], [place] [address] Mammography Report Signed with Addenda Patient: Alisha Saravia#: [id number] 97 : 1970Acct:[id number] Age/Sex: 53 / FADM Date: 07/31/23 Loc: [facility] Attending Dr: Shanon Harris MD Ordering Physician: Shanon Harrisesults: 0Incomple te: Needs Additional Imaging Evaluation Date of Service: 07/31/23Follow Up: Additional Imagi ng Procedure(s): MM tomosynthesis screening BI Accession Number(s): [id number] cc: Shanon Harris MD ADDENDUM ADDENDUM: OVERALL ASSESSMENT: BI-RADS 0 - Incomplete: Needs additional Imaging. RECOMMENDATION: Additional Imaging required Addendum Dictated By: Yani Nava MD Addendum Signed By: <Electronically signed by Yani Nava MD in OV> 08/23/23 0709 Addendum Cosigned By: DD/ /12/1030 TD/TT: / EXAMINATION: MM SCREENING DIGITAL BREAST TOMOSYNTHESIS, BILATERAL CLINICAL INFORMATION: Screening. Asymptomatic. COMPARISON: Mammography: This study is compared with prior exams dating back to 2019. TECHNIQUE: Digital breast tomosynthesis is performed in both the craniocaudal and mediolateral oblique views along with computer-aided detection (CAD). Synthesized 2D images are generated from the tomosynthesis. FINDINGS: The breasts are heterogeneously dense, which may obscure small masses (ACR BI-RADS breast composition Category c). In the lateral most aspect of the fat glandular interface of the left breast, there is an asymmetry for which additional mammographic and targeted sonographic imaging is advised. In the right breast, there are no significant masses, abnormal calcifications, or other abnormalities. MM/MM tomosynthesis screening BI IMPRESSION: Asymmetry of the left breast warrants additional mammographic and targeted sonographic imaging. No mammographic signs of malignancy right breast. ASSESSMENT: BI-RADS BI-RADS 1 - Negative RECOMMENDATION: 1. Additional views of the left breast 2. Targeted ultrasound if warranted after review of the additional views. 3. Radiology department staff will contact the patient for additional imaging. Additional Imaging required This examination should not preclude the clinical evaluation of a suspicious palpable abnormality. This patient's information was entered into a reminder system with a target due date for their next mammogram. Dictated By: Yani Nava MD Signed By: <Electronically signed by Yani Nava MD in OV> 08/22/23 1949 DD/ 1010 TD/TT: Orthoptist: Shanon Harris MD [facility] BI PROCEDURES Edited Result - Final * HEPATITIS C AB W/REFL TO HCV RNA, QN, PCR (04/22/2021 8:19 AM EST) HEPATITIS C ANTIBODY NON-REACT ALEXANDRU NON-REACT ALEXANDRU [facility] INDEX 0.03 <1.00 [facility] Comment: ?? HCV antibody was non-reactive. There is no laboratory ?? evidence of HCV infection. ?? In most cases, no further action is required. However, if recent HCV exposure is suspected, a test for HCV RNA (test code 73468) is suggested. ?? For additional information please refer to http://education.Get Me [employer]ed/faq/OSV54r7 (This link is being provided for informational/ educational purposes only.) ?? 04/22/2021 8:19 AM EST Shanon Harris MD HISTORICAL/NON ORDERABLE LABS Fi nal Result Performing Organization Address [facility] de Phone Number [facility] [address] [place] [address], * HIV 1/2 ANTIGEN/ANTIBODY,FOURTH GENERATION W/RFL (04/22/2021 8:19 AM EST) HIV-1/2 ANTIGEN AND ANTIBODIES, 4TH GENERATION W/ REFLEX NON-REACT ALEXANDRU NON-REACT ALEXANDRU [facility] Comment: HIV-1 antigen and HIV-1/HIV-2 antibodies were not detected. There is no laboratory evidence of HIV infection. ?? PLEASE NOTE: This information has been disclosed to you from records whose confidentiality may be protected by state law. ??If your state requires such protection, then the state law prohibits you from making any further disclosure of the information without the specific written consent of the person to whom it pertains, or as otherwise permitted by law. A general authorization for the release of medical or other information is NOT sufficient for this purpose. ? For additional information please refer to http://education.Get Me Listed/faq/FWF733 (This link is being provided for informational/ educational purposes only.) ? The performance of this assay has not been clinically validated in patients less than 2 years old. ?? 04/22/2021 8:19 AM EST Shanon Harris MD LAB BLOOD ORDERABLES Final Resul t Performing Organization Address 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
--- OUTSIDE RECORDS SUMMARY | 2024-04-12 08:45 | XMS_ITS | Encounter Summary ---
Author Organization [facility] Address [address] [place] [address] Care Team Providers Care Paper Box Maker Name Role Phone Physician, Pcp Unknown Primary Care Provider Dorothy vailable Reason for Referral * Imaging (Routine) - Pending Review Specialty Diagnoses / Procedures Referred By Contac t Referred To Contact Radiology Diagnoses Angiomyolipoma Procedures MR Abdomen wo and w Contrast Cedric Fuentes MD [address] [place] [id number] [facility] Referral ID Status Reason Start Date Expiration Date V isits Requested Visits Authorized [id number] Pending Review 03/30/2024 03/30/2025 1 1 Reason for Visit * Imaging (Routine) - Pending Review Specialty Diagnoses / Procedures Referred By Nida díaz Referred To Contact Radiology Diagnoses Angiomyolipoma Procedures MR Abdomen wo and w Contrast Cedric Fuentes MD [address] [place] [id number] [facility] Referral ID Status Reason Start Date Expiration Date V isits Requested Visits Authorized [id number] Pending Review 03/30/2024 03/30/2025 1 1 Encounter Details Date Type Department Care Team (Latest Contact Info) Description 04/03/2024 2:04 PM EST - 04/03/2024 11:59 PM EST Hospital Encounter [facility] MRI [address] [place] [address] Angiomyolipoma Discharge Disposition: Home or Self Care Social History Tobacco Use Types Packs/Day Years Used Date Smoking Tobacco: Never Assessed Sex and Gender Information Value Date Recorded Sex Assigned at Not on file Gender Identity Not on file Sexual Orientation Not on file Job Start Date Occupation Industry Not on file Not on file Not on file documented as of this encounter Last Filed Vital Signs Vital Sign Reading Time Taken Comments Blood Pressure - - Pulse - - Temperature - - Respiratory Rate - - Oxygen Saturation - - Inhaled Oxygen Concentration - - Weight 59.9 kg (132 lb) 04/03/2024 3:18 PM EST Height - - Body Mass Index - - documented in this encounter Discharge Disposition Disposition Code Departure Means Destination Home or Self Care documented in this encounter Plan of Treatment Not on file documented as of this encounter Procedures Procedure Name Priority Date/Time Associated Diagnosis Comments MR ABDOMEN WO AND W CONTRAST Routine 04/03/2024 3:20 PM EST Angiomyolipoma documented in this encounter Results * MR Abdomen wo and w Contrast (04/03/2024 3:20 PM EST) Anatomical Region Laterality Modality Body Magnetic Resonan ce 04/06/2024 12:3 9 PM EST Impressions 04/06/2024 2:11 PM EST 1. ??A previously embolized angiomyolipoma slightly exophytic from the upper pole of the right kidney is significantly decreased in size in the interval, and now appears contracted and irregular, with circumferential T2 hyperintensity suggesting developing dystrophic calcification. 2. ??Stable small exophytic angiomyolipoma arising from the posterior lateral lower pole of the right kidney. 3. stable defect in the posterior interpolar right kidney which correlates with a site of resection of a large angiomyolipoma seen on the comparison CT dated 06/03/2017. -------- FINAL REPORT -------- Dictated By: Burton Uribe Dictated Date: 04/06/2024 12:39 ET Assigned Physician: Burton Uribe Reviewed and Electronically Signed By: Burton Uribe Signed Date: 04/06/2024 14:11 ET Workstation ID: [id number] Transcribed By: Self Edit Transcribed Date: 04/06/2024 12:39 ET Narrative 04/06/2024 2:11 PM EST MRI abdomen dated 04/06/2024. HISTORY: Right renal angiomyolipoma. TECHNIQUE: Multiplanar multisequence MRI of the abdomen with and without intravenous contrast. IV contrast dose: 13 mL Dotarem from a 15 mL vial with 2 mL discarded. COMPARISON: 03/06/2023. FINDINGS: Liver: No focal lesion. ??No evidence of steatosis on out of phase imaging. ??Patent portal and hepatic veins. Biliary: Gallbladder not seen and presumably surgically absent. ??Mild prominence of the common duct as is often seen in this postoperative setting. ??No intrahepatic ductal dilatation. Pancreas: Normal. Spleen: Normal. Adrenal glands: Normal. Kidneys: Interval decrease in size of a previously demonstrated fat-containing lesion exophytic from the upper pole of the right kidney. ??This lesion now appears contracted and irregular, with new prominent peripheral T2 hypointensity. ??It measures approximately 16 mm craniocaudal and 2.1 x 1.2 cm. There is a stable cortical defect in the posterior interpolar right kidney at a presumed resection site. Closely adjacent to the cortical defect in the posterior interpolar right kidney is a stable 1.8 cm exophytic peripherally enhancing mass with fatty components arising from the posterolateral lower interpolar right kidney. ??There are a few small nonenhancing lesions in the right renal cortex suggestive of cysts which are unchanged.. ??Left kidney is normal. Retroperitoneum: No mass or adenopathy. Bowel/mesentery: Visible portions are normal. Abdominal wall: No mass or hernia. Bones: Minimal degenerative changes of the spine. Procedure Note Burton Uribe MD - 04/06/2024 MRI abdomen dated 04/06/2024. HISTORY: Right renal angiomyolipoma. TECHNIQUE: Multiplanar multisequence MRI of the abdomen with and withoutintravenous contrast. IV contrast dose: 13 mL Dotarem from a 15 mL vial with 2 mL discarded. COMPARISON: 03/06/2023. FINDINGS: Liver: No focal lesion. No evidence of steatosis on out of phase imaging.Patent portal and hepatic veins. Biliary: Gallbladder not seen and presumably surgically absent. Mildprominence of the common duct as is often seen in this postoperativesetting. No intrahepatic ductal dilatation. Pancreas: Normal. Spleen: Normal. Adrenal glands: Normal. Kidneys: Interval decrease in size of a previously demonstratedfat-containing lesion exophytic from the upper pole of the right kidney.This lesion now appears contracted and irregular, with new prominentperipheral T2 hypointensity. It measures approximately 16 mm craniocaudaland 2.1 x 1.2 cm. There is a stable cortical defect in the posterior interpolar right kidneyat a presumed resection site. Closely adjacent to the cortical defect in the posterior interpolar rightkidney is a stable 1.8 cm exophytic peripherally enhancing mass with fattycomponents arising from the posterolateral lower interpolar right kidney.There are a few small nonenhancing lesions in the right renal cortexsuggestive of cysts which are unchanged.. Left kidney is normal. Retroperitoneum: No mass or adenopathy. Bowel/mesentery: Visible portions are normal. Abdominal wall: No mass or hernia. Bones: Minimal degenerative changes of the spine. IMPRESSION: 1. A previously embolized angiomyolipoma slightly exophytic from theupper pole of the right kidney is significantly decreased in size in theinterval, and now appears contracted and irregular, with circumferentialT2 hyperintensity suggesting developing dystrophic calcification. 2. Stable small exophytic angiomyolipoma arising from the posteriorlateral lower pole of the right kidney. 3. stable defect in the posterior interpolar right kidney which correlateswith a site of resection of a large angiomyolipoma seen on the comparisonCT dated 06/03/2017. -------- FINAL REPORT -------- Dictated By: Burton Uribe Dictated Date: 04/06/2024 12:39 ET Assigned Physician: Burton Uribe Reviewed and Electronically Signed By: Burton Uribe Signed Date: 04/06/2024 14:11 ET Workstation ID: [id number] Transcribed By: Self Edit Transcribed Date: 04/06/2024 12:39 ET Cedric Fuentes MD IMG MRI PROCEDURES documented in this encounter Visit Diagnoses Diagnosis Angiomyolipoma documented in this encounter Administered Medications Inactive Administered Medications - up to 3 most recent administrations Medication Order MAR Action Action Date Dose Rate Site gadoterate meglumine (CLARISCAN, DOTAREM) injection 13 mL 13 mL, intravenous, Once in imaging, Starting on Wed04/03/24 at 1518, For 1 dose Given 04/03/2024 3:19 PM EST 13 mL Left Antecubital sodium chloride 0.9 % flush 10 mL 10 mL, intravenous, Once, On Mon /13/25 at 1545, For 1 dose Given 04/03/2024 3:19 PM EST 10 mL Left Antecubital documented in this encounter Care Teams Paper Box Maker Relationship Specialty Start Date End Date Physician, Pcp Unknown PCP - General 04/03/24 documented as of this encounter
--- OUTSIDE RECORDS SUMMARY | 2024-04-12 08:45 | XMS_ITS | Encounter Summary ---
Author Organization [employer] Address [address] [facility] 7t [place] [address] Care Team Providers Care Quiller Machine Fixer Name Role Phone Shanon Harris MD Primary Care Provider Encounter Details Date Type Department Care Team (Latest Contact Info) Description 03/27/2024 Travel Social History Tobacco Use Types Packs/Day Years Used Date Smoking Tobacco: Never Passive Smoke Exposure: Never Smokeless Tobacco: Never Alcohol Use Standard Drinks/Week Comments Never 0 (1 standard drink = 0.6 oz pur e alcohol) Depression Answer Date Recorded Patient Health Questionnaire-9 Score 5 10/26/2023 Patient Health Questionnaire-9 Score 5 10/26/2023 Last PHQ-9: Questionnaire Data Not on file 0 10/26/2023 Housing Stability Answer Date Recorded What is your housing situation today? I have barry da silva 07/14/[address] [...] Orientation Straight 01/19/2022 10 :14 AM EDT documented as of this encounter Plan of Treatment Not on file documented as of this encounter Visit Diagnoses Not on filedocumented in this encounter Additional Health Concerns Assessment Noted Time PHQ-9 Depression Total Score: 5 10/26/19 24 1:59 PM EDT documented as of this encounter Care Teams Quiller Machine Fixer Relationship Specialty Start Date End Date Shanon Harris MD [address] [place] [address] PCP - General Family Medicine 03/22/18 documented as of this encounter
--- OUTSIDE RECORDS SUMMARY | 2024-04-12 08:45 | XMS_ITS | Clinical Summary ---
Author Organization [facility] Address [address] [place] [address] Phone Care Team Providers Care Air Force Pilot Name Role Phone Shanon Harris MD Primary Care Provider [phone] Allergies Active Allergy Reactions Criticality Noted Date Comments Aspirin 03/04/2016 Other reaction(s): rash Clindamycin Other (see comments) 02/24/2021 Penicillin V Other (see comments) 02/24/2021 Medications albuterol HFA (PROVENTIL HFA;VENTOLIN HFA) 108 (90 Base) MCG/ACT inhaler Active amLODIPine (NORVASC) 2.5 MG tablet Take 1 tablet by mouth 1 (one) time each day 04/20/2017 Active loratadine (CLARITIN) 10 MG tablet Take 1 tablet by mouth 1 (one) time each day Active Flovent HFA 110 MCG/ACT inhaler Inhale 1 puff 2 (two) times a day 07/19/2022 Active Advair HFA 45-21 MCG/ACT inhaler Inhale 2 puffs 2 (two) times a day 06/09/2022 Active montelukast (SINGULAIR) 10 MG tablet 09/12/2022 Active Active Problems Problem Noted Date Diagnosed Date Angiomyolipoma of kidney 09/14/2022 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 02/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 Essential hypertension 02/24/2021 Immunizations Name Administration Dates Next Due Hep A, 2 Dose 10/04/2008 Hep B, Adolescent or Pediatric 12/19/2008,2008 Influenza, Quadrivalent, Preservative Free 01/31,05/23/2018 Pneumococcal Polysaccharide 02/01/2020 Td 10/18/2008,03/22/1994 Tdap 05/23/2018 Family History Medical History Relation Comments Diabetes Father Heart disease Father Diabetes Mother Heart disease Mother Hypertension Mother Kidney disease Mother uncle- Cancer Sibling 1 Heart disease Sibling 2 Hypertension Sibling 3 Diabetes Sibling 4 Relation Status Comments Father Alive Mother Alive Sibling 1 Sibling 2 Sibling 3 Sibling 4 Social History Tobacco Use Types Packs/Day Years Used Date Smoking Tobacco: Never Alcohol Use Standard Drinks/Week Comments No 0 (1 standard drink = 0.6 oz pur e alcohol) Comments Unknown Sex and Gender Information Value Date Recorded Sex Assigned at Not on file Legal Sex Female 4:59 PM EST Gender Identity Not on file Sexual Orientation Not on file Last Filed Vital Signs Vital Sign Reading Time Taken Comments Blood Pressure 128/66 08/19/2023 10:28 AM EDT Pulse 77 08/19/2023 10:28 AM EDT Temperature - - Respiratory Rate - - Oxygen Saturation 97% 08/19/2023 10:28 AM EDT Inhaled Oxygen Concentration - - Weight 66.9 kg (147 lb 6.4 oz) 08/19/2023 10:28 AM EDT Height 157.5 cm (5' 2 ) 03/04/2020 12:00 PM EST Body Mass Index 26.96 03/04/2020 12:00 PM EST Plan of Treatment Upcoming Encounters Date Type Department Care Team (Late st Contact Info) Description 08/17/2024 1:30 PM EDT Office Visit [facility] [address] [place] [address] Uriel Lara MD [address] [facility] [address] [place] [address] Health Maintenance Due Date Last Done Comments Breast Cancer Screening 1969 Hepatitis B Vaccine (1 of 3 - 19+ 3-dose series) 1988 12/19/2008, 10/04/2008 Colorectal Cancer Screening: Annual FOBT 2018 Colorectal Cancer Screening: Colonoscopy 2018 Colorectal Cancer Screening: Sigmoidoscopy 2018 Pneumococcal Vaccine: Pediat rics (0 to 5 Years) and At-Risk Patients (6 to 64 Years) (2 of 2 - PCV) 01/31/2021 02/01/2020 Diabetes: Pedal Pulse Checked 09/14/2022 Diabetes: Sensory Foot Exam 09/14/2022 Diabetes: Visual Foot Exam 09/14/2022 Diabetes: Ophthalmology Exam 06/30/2023 06/29/2022 Diabetes: Hemoglobin A1C 10/22/2023 07/22/2023 Influenza Vaccine (#1) 2023 02/01/2020, 2018 Insurance [place] Care Teams Air Force Pilot Relationship Specialty Start Date End Date Shanon Harris MD PCP - General 04/01/20
--- OUTSIDE RECORDS SUMMARY | 2024-04-12 08:45 | XMS_ITS | Encounter Summary ---
Author Organization [employer] Address [address] [place] [address] 7t [place] [address] Care Team Providers Care Dandy Operator Name Role Phone Shanon Harris MD Primary Care Provider [phone] Reason for Visit * Reason Comments Med Refill Encounter Details Date Type Department Care Team ([facility] st Contact Info) Description 05/09/2022 Refill [facility] MEDICINE [address] [place] [address] Shanon Harris MD [address] [place] [address] Social History Tobacco Use Types Packs/Day Years Used Date Smoking Tobacco: Never Smokeless Tobacco: Never Alcohol Use Standard Drinks/Week Comments Never 0 (1 standard drink = 0.6 oz pur e alcohol) Depression Answer Date Recorded Patient Health Questionnaire-9 Score 0 04/08/2022 Depression Answer Date Recorded Patient Health Questionnaire-2 Score 0 04/08/2022 Comments Unknown Sex and Gender Information Value [...] Assessment Noted Time PHQ-9 Depression Total Score: 0 04/08/19 23 11:25 AM EST documented as of this encounter Care Teams Dandy Operator Relationship Specialty Start Date End Date Shanon Harris MD [address] [place] [address] PCP - General Family Medicine 03/22/18 documented as of this encounter
--- OUTSIDE RECORDS SUMMARY | 2024-04-12 08:45 | XMS_ITS | Encounter Summary ---
Author Organization [employer] Address [address] 7[address] [place] [address] Care Team Providers Care Restaurant Manager Name Role Phone Shanon Harris MD Primary Care Provider [phone] Encounter Details Date Type Department Care Team (Late st Contact Info) Description 04/04/2024 Telephone [facility] [address] [place], [place] [id number] Marco Antonio Morales DDS [address] [place] [address] Social History Tobacco Use Types Packs/Day Years [...] AM EDT documented as of this encounter Miscellaneous Notes * Telephone Encounter - Sandhya Cantrell - 04/04/2024 10:50 AM EST Called patient to schedule an appointment for extraction but patient said she is busy with other appointments at this time and will call us back when she is ready to schedule this appointment. documented in this encounter Plan of Treatment Not on file documented as of this encounter Visit Diagnoses Not on filedocumented in this encounter Additional Health Concerns Assessment Noted Time PHQ-9 Depression Total Score: 5 10/26/19 24 1:59 PM EDT documented as of this encounter Care Teams Restaurant Manager Relationship Specialty Start Date End Date Shanon Harris MD [address] [place] [address] PCP - General Family Medicine 03/22/18 documented as of this encounter
--- OUTSIDE RECORDS SUMMARY | 2024-04-12 08:45 | XMS_ITS | Encounter Summary ---
Author Organization [employer] Address [address] [facility] 7t [place] [address] Care Team Providers Care Rf Engineer Name Role Phone Shanon Harris MD Primary Care Provider [phone] Reason for Visit * Reason Onset Date Comments requesting a call 10/12/2022 Encounter Details Date Type Department Care Team ([facility] st Contact Info) Description 10/12/2022 Telephone [facility] [address] [place] [address] Shanon Harris MD [address] [place] [address] requesting a call Social History Tobacco Use Types Packs/Day Years [...] encounter Miscellaneous Notes * Telephone Encounter - Shanon Harris MD - 10/14/2022 3:[address] Deng, interventional radiologist. * Telephone Encounter - Adeola Corrales RN - 10/13/2022 1:41 PM EDT Called [facility], Dr. Deng wants to speak with Dr. Harris about this pt. * Telephone Encounter - Vonda Jay - 10/12/2022 4:01 PM EDT Roberto nelson with [facility] requesting to speak with PCP. Please contact [facility] at [phone] documented in this encounter Plan of Treatment Not on file documented as of this encounter Visit Diagnoses Not on filedocumented in this encounter Additional Health Concerns Assessment Noted Time PHQ-9 Depression Total Score: 0 04/08/19 23 11:25 AM EST documented as of this encounter Care Teams Rf Engineer Relationship Specialty Start Date End Date Shanon Harris MD [address] [place] [id number] PCP - General Family Medicine 03/22/18 documented as of this encounter
--- OUTSIDE RECORDS SUMMARY | 2024-04-12 08:45 | XMS_ITS | Encounter Summary ---
Author Organization [employer] Address [address] [facility] [address]t [place] [address] Care Team Providers Care Door Clamper Name Role Phone Shanon Harris MD Primary Care Provider [phone] Reason for Visit * Reason Comments Med Refill Encounter Details Date Type Department Care Team ([facility] st Contact Info) Description 03/31/[address] [facility] [address] [place] [address] Shanon Harris MD [address] [place] [address] Essential hypertension Social History Tobacco Use Types Packs/Day Years [...] documented as of this encounter Visit Diagnoses Diagnosis Essential hypertension Unspecified essential hypertension documented in this encounter Additional Health Concerns Assessment Noted Time PHQ-9 Depression Total Score: 5 10/26/19 24 1:59 PM EDT documented as of this encounter Care Teams Door Clamper Relationship Specialty Start Date End Date Shanon Harris MD [address] [place] [id number] PCP - General Family Medicine 03/22/18 documented as of this encounter
--- OUTSIDE RECORDS SUMMARY | 2024-04-12 08:45 | XMS_ITS | Encounter Summary ---
Author Organization [employer] Address [address] [facility] 7t [place] [address] Care Team Providers Care Crusher Plant Operator Name Role Phone Shanon Harris MD Primary Care Provider [phone] Reason for Visit * Reason Onset Date Comments Results 03/28/2024 Encounter Details Date Type Department Care Team ([facility] st Contact Info) Description 03/28/2024 Telephone [facility] MEDICINE [address] [place] [address] Shanon Harris MD [address] [place] [address] Results Social History Tobacco Use Types Packs/Day Years [...] encounter Miscellaneous Notes * Telephone Encounter - Sofia Velázquez RN - 03/30/2024 10:37 AM EST T/C placed to pt re below lab results and POC. Informed liver enzyme slightly elevated. Informed itis most commonly from diet. Advised she cut down on fried, processed, and sugary foods. Advised sheget additional labs at her convenience and advised to do US. Pt verbalized understanding and deniedhaving any further questions or concerns at this time. * Telephone Encounter - Kallie Barron RN - 03/29/2024 9:07 AM EST Telephone call x2 to pt to advise of below results, no answer, left voicemail to call back [facility]. Will task for 3rd attempt. * Telephone Encounter - Kallie Barron RN - 03/28/2024 9:21 AM EST Telephone call x1 to pt to advise of below results from labwork, no answer, left voicemail to call back [facility]. Will retask to call again. * Telephone Encounter - Kallie Barron RN - 03/28/2024 9:20 AM EST ----- Message from Shanon Harris MD sent at 03/27/2024 5:46 PM EST ----- Please inform patient that liver enzymes are mildly elevated. Please ask her to do an additional lab and inform patient of US order. Most likely due to her diet. Please review healthy diet (avoid excessive fat, high fructose corn syrup). Thank you. documented in this encounter Plan of Treatment Not on file documented as of this encounter Visit Diagnoses Not on filedocumented in this encounter Additional Health Concerns Assessment Noted Time PHQ-9 Depression Total Score: 5 10/26/19 24 1:59 PM EDT documented as of this encounter Care Teams Crusher Plant Operator Relationship Specialty Start Date End Date Shanon Harris MD [address] [place] [address] PCP - General Family Medicine 03/22/18 documented as of this encounter
--- OUTSIDE RECORDS SUMMARY | 2024-04-12 08:45 | XMS_ITS | Clinical Summary ---
Author Organization [facility] Address [address] [place] [address] Phone Care Team Providers Care Manufacturer'S Service Representative Name Role Phone Physician, Pcp Unknown Primary Care Provider Dorothy vailable Encounters Date Type Department Care Team Description 04/03/2024 2:04 PM EST - 04/03/2024 11:59 PM EST Hospital Encounter [facility] MRI [address] [place] [address] Angiomyolipoma Discharge Disposition: Home or Self Care from Last 3 Months Social History Tobacco Use Types Packs/Day Years Used Date Smoking Tobacco: Never Assessed Sex and Gender Information Value Date Recorded Sex Assigned at Not on file Gender Identity Not on file Sexual Orientation Not on file Job Start Date Occupation Industry Not on file Not on file Not on file Last Filed Vital Signs Vital Sign Reading Time Taken Comments Blood Pressure - - Pulse - - Temperature - - Respiratory Rate - - Oxygen Saturation - - Inhaled Oxygen Concentration - - Weight 59.9 kg (132 lb) 04/03/2024 3:18 PM EST Height - - Body Mass Index - - Plan of Treatment Health Maintenance Due Date Last Done Comments Breast Cancer Screening 1969 Diabetes: Annual Foot Exam 07/03/1979 Diabetes: Annual Retina Eye Exam 07/03/1979 Hepatitis B Vaccines (1 of 3 - 19+ 3-dose series) 1988 12/19/2008, 10/04/2008 Cervical Cancer Screening: P ap Smear 1990 Zoster Vaccines (1 of 2) 07/03/2019 Pneumococcal Vaccine: Pediatrics (0 to 5 Years) and At-Risk Patients (6 to 64 Years) (2 of 2 - PCV) 01/31/2021 02/01/2020 Cholesterol Screening (Lipid Panel) 05/28/2023 Hepatitis C Screening 05/28/2023 Social Influencers of Health Screening 05/28/2023 COVID-19 Vaccine (2023-2 5 season) 2023 Influenza Vaccine (#1) 2023 , 05/23/2018 Diabetes: Annual Urine Albumin-Creatinine Ratio (uACR) 04/03/2024 Diabetes: Blood Sugar Contro l Test (HGBA1C) 04/27/2024 10/26/2023 Depression Screening 10/25/2024 10/26/2023 Diabetes: Annual GFR (Glomerular Filtration Rate) 03/27/2025 03/27/2024 Hypertension/CHF/CAD Annual BMP Blood Test 03/27/2025 03/27/2024 Colorectal Cancer Screening: FIT-DNA (Cologuard) 08/11/2026 08/12/2023 DTaP,Tdap,and Td Vaccines (4 - Td or Tdap) 05/23/2028 05/23/2018, 10/18/2008, 03/22/1994 Hepatitis A Vaccines Aged Out 10/04/2008 No long er eligible based on patient's age to complete this topic HIV Screening Completed 04/22/2021 HIB Vaccines Aged Out No longer eligi ble based on patient's age to complete this topic HPV Vaccines Aged Out No longer eligi ble based on patient's age to complete this topic IPV Vaccines Aged Out No longer eligi ble based on patient's age to complete this topic MMR Vaccines Aged Out No longer eligi ble based on patient's age to complete this topic Meningococcal ACWY Vaccine Aged Out N o longer eligible based on patient's age to complete this topic RSV Immunization Patients Under 20 months Aged Out No longer eligible b ased on patient's age to complete this topic Varicella Vaccines Aged Out No longer eligible based on patient's age to complete this topic Procedures Procedure Name Priority Date/Time Associated Diagnosis Comments MR ABDOMEN WO AND W CONTRAST Routine 04/03/2024 3:20 PM EST Angiomyolipoma from Last 3 Months Results * MR Abdomen wo and w [...] Signed Date: 04/06/2024 14:11 ET Workstation ID: [id number] Transcribed By: Self Edit Transcribed Date: 04/06/2024 [...] Signed Date: 04/06/2024 14:11 ET Workstation ID: [id number] Transcribed By: Self Edit Transcribed Date: 04/06/2024 12:39 ET Cedric Fuentes MD IMG MRI PROCEDURES from Last 3 Months Care Teams Manufacturer'S Service Representative Relationship Specialty Start Date End Date Physician, Pcp Unknown PCP - General 04/03/24
--- OUTSIDE RECORDS SUMMARY | 2024-04-12 08:45 | XMS_ITS | Encounter Summary ---
Author Organization [employer] Address [address] [facility] [address] [place] [address] Care Team Providers Care Judicial Registrar Name Role Phone Shanon Harris MD Primary Care Provider [phone] Encounter Details Date Type Department Care Team (Latest Contact Info) Description 10/21/2018 Abstract [facility] CONVERSIONS Dental, Provider, DDS Social History Tobacco Use Types Packs/Day Years Used Date Smoking Tobacco: Never Assessed Comments Unknown Sex and Gender Information Value Date Recorded Sex Assigned at Female 01/19/2022 10:14 AM EDT Legal Sex Female 10:14 AM EDT Gender Identity Female 01/19/2022 10:14 AM EDT Sexual Orientation Straight 01/19/2022 10 :14 AM EDT documented as of this encounter Plan of Treatment Not on file documented as of this encounter Visit Diagnoses Not on filedocumented in this encounter Care Teams Judicial Registrar Relationship Specialty Start Date End Date Shanon Harris MD [address] [place] [id number] PCP - General Family Medicine 03/22/18 documented as of this encounter
--- OUTSIDE RECORDS SUMMARY | 2024-04-12 08:45 | XMS_ITS | Encounter Summary ---
Author Organization [employer] Address [address] [facility] 7[address] [place] [address] Care Team Providers Care Radioactive Waste Disposal Dispatcher Name Role Phone Shanon Harris MD Primary Care Provider [phone] Encounter Details Date Type Department Care Team (Late st Contact Info) Description 03/27/2024 1:45 PM EST Office Visit [facility] MEDICINE [address] [place] [address] Shanon Harris MD [address] [place] [address] Moderate persistent asthma without complication (Primary Dx); Essential hypertension; Medullary sponge kidney; Angiomyolipoma of kidney; Type 2 diabetes mellitus without complication, without long-term current use of insulin ([facility]); Allergic rhinitis, unspecified seasonality, unspecified trigger; Anxiety; Hepatitis C antibody test positive; Transaminitis Social History Tobacco Use Types Packs/Day Years [...] AM EDT documented as of this encounter Last Filed [...] oz) 03/27/2024 1:52 P M EST Height - - Body Mass Index 27.71 10/26/2023 1:57 PM EDT documented in this encounter Progress Notes * Shanon Harris MD - 03/27/2024 1:45 PM EST Subjective Mari Saravia is a 53 y.o. female who has hypertension, diabetes mellitus type 2, and medullary sponge kidney, and patient presents for follow up of chronic conditions. Background: Our last encounter was 10/26/2023. Shortly after her visit to ED for right foot swelling. No pain. USshowed right popliteal cyst. BP was elevated in the clinic, but normal at home, as usual. Interval history: No major illness. No reports from specialists or other facilities. Today: The pt explains that her blood pressure is high right now because she walked up a lot of stairs andwent grocery shopping before the appointment. But when she checked her BP this morning it was 117/76. She says she checks at home every day. She does not check her sugar every day though. She reports a slight gain in weight. She says she is going to start eating better and is encouragedto exercise. She needs her Hepatitis vaccine but does not want to do it today. Review of Systems Constitutional: Negative for activity change, appetite change and fever. Respiratory: Negative for shortness of breath. Cardiovascular: Negative for chest pain. Objective Vitals: 03/27/24 1352 03/27/24 1402 BP: (!) 164/91 (!) 160/93 Pulse: 72 Resp: 19 Temp: 97.1 ??F (36.2 ??C) TempSrc: Temporal SpO2: 98% Weight: 156 lb 6.4 oz (70.9 kg) Physical Exam Constitutional: General: She is not in acute distress. Appearance: Normal appearance. She is not ill-appearing. HENT: Head: Normocephalic and atraumatic. Mouth/Throat: Mouth: Mucous membranes are moist. Eyes: Extraocular Movements: Extraocular movements intact. Pupils: Pupils are equal, round, and reactive to light. Cardiovascular: Rate and Rhythm: Normal rate and regular rhythm. Heart sounds: No murmur heard. Pulmonary: Effort: Pulmonary effort is normal. No respiratory distress. Breath sounds: Normal breath sounds. No wheezing or rhonchi. Skin: General: Skin is warm. Neurological: Mental Status: She is alert. Mental status is at baseline. Psychiatric: Mood and Affect: Mood normal. Results: Lab Results Component Value Date NA 139 03/27/2024 K 4.0 03/27/2024 CL 106 03/27/2024 CO2 26 03/27/2024 BUN 14 03/27/2024 CREATININE 0.78 03/27/2024 EGFR >60 03/27/2024 GLUCOSE 102 03/27/2024 TOTALBILIRUB 0.4 03/27/2024 AST 39 (H) 03/27/2024 ALT 45 (H) 03/27/2024 TOTPROTEIN 8.1 (H) 03/27/2024 ALB 4.3 03/27/2024 ALP 136 (H) 03/27/2024 Lab Results Component Value Date TRIG 88 03/27/2024 CHOL 146 03/27/2024 LDLCHOLCAL 86 03/27/2024 HDL 43 03/27/2024 Lab Results Component Value Date HGBA1C 6.0 10/26/2023 MICROALBUR <5.0 03/27/2024 CREATUR 18.25 03/27/2024 MICROALBCREU TNP 03/27/2024 ALBCREATUR 8 08/11/2022 Lab Results Component Value Date WBC 5.8 09/08/2022 HGB 13.6 09/08/2022 HCT 42.1 09/08/2022 PLT 314 09/08/2022 MCV 85.6 09/08/2022 The 10-year ASCVD risk score (Patria DIAZ, et al., 2019) is: 4.8% Values used to calculate the score: Age: 53 years Sex: Female Is Non- : No Diabetic: Yes Tobacco smoker: No Systolic Blood Pressure: 160 mmHg Is BP treated: No HDL Cholesterol: 43 mg/dL Total Cholesterol: 146 mg/dL Assessment/Plan Problem List Items Addressed This Visit Allergic rhinitis - continue flonase, loratadine and montelukast Angiomyolipoma of kidney -s/p Embolization of angiomyolipoma 06/04/[address] 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 - most recent MRI on 03/16/23 showed 3.3 cm angiolipoma in the upper pole of right kidney, slightlyexophytic, smaller in size. There is another stable small angiolipoma in the lower pole of right kidney. Anxiety - She is aware of her symptoms and condition. - She does not want to take a medication or engage in counseling. 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 Asthma - Primary - Following with [facility] Manager Commercial, last seen on 08/28/22. Next appointment in Apr 2023 - Treatment Hx: Flovent Changed to Advair HFA + Singulair added in May 2022 - Continue Advair HFA and montelukast - Advised to get her lab done so that allocations clerk can assess if pt will benefit from biologic Tx. - follow-up with Manager Commercial as scheduled - follow-up with PCP in 4-6 mo Essential hypertension -Goal BP < 140/90 per JNC-8, < [...] -follow-up in 6 months or sooner prn. RESOLVED: Hepatitis C antibody test positive Medullary sponge kidney - following with food operations manager Diabetes mellitus, type 2 (CMS/HCC) Dx type 2 DM on January 15, 2020 by RGB > 500 -A1C > 14% on 01/23/20 -A1C 6.0% on 10/26/23 -A1C 6.6% on 03/27/24 -Currently managing with lifestyle modifications -Treatment Hx: Metformin 1 g bid after Dx; tapered down as she improved her diet, and completely discontinued metformin on 04/21/21 -Comprehensive eye exam: 03/11/20 at [facility] eye care, no diabetic retinopathy -Foot exam 07/22/23 -Last Lipid profile 03/27/24, She does not want to start statin -Last microalbuminuria test on 03/27/24, no microalbuminuria -Follow-up in 4-6 months or sooner prn Relevant Orders POCT glucose manually resulted (Completed) POCT glycosylated hemoglobin (Hgb A1c) Transaminitis - history of positive Hep C antibody, which was cleared naturally - most likely MASLD / fatty liver - continue working on lifestyle modifications - check hepatitis profile - Hep A immunity not available; will check and immunize if non-reactive - complete Hep B immunizations Allergies Allergen Reactions Aspirin Other reaction(s): rash Clindamycin Unknown Penicillins Other reaction(s): Other (see comments) Current Outpatient Medications Medication Instructions Advair HFA 45-21 MCG/ACT inhaler 2 puffs, Inhalation, 2 times daily albuterol 108 (90 Base) MCG/ACT inhaler 2 puffs, Inhalation, Every 4 hours PRN Alcohol Swabs (Alcohol Prep) 70 % pads Check Blood sugar once daily amLODIPine (Norvasc) 2.5 MG tablet TAKE 1 TABLET BY MOUTH EVERY DAY IN THE MORNING DO NOT USE IF SYSTOLIC BLOOD PRESSURE LESS THAN 110 Blood Glucose Monitoring Suppl (FreeStyle Lite) w/Device kit 1 kit, Does not apply, Daily before breakfast Blood Pressure Monitor mis Check BP daily COVID-19 Antigen Test kit Check as instructed docusate sodium (COLACE) 100 mg, Oral, 2 times daily EPINEPHrine (EpiPen 2-Toby) 0.3 MG/0.3ML injection syringe 0.3 mL, Intramuscular fluticasone (Flonase) 50 MCG/ACT nasal spray spray 1 spray by intranasal route every day in each nostril FreeStyle lancets 1 each, Other, Daily, Check blood glucose FREESTYLE LITE test strip Check blood sugar once daily hydrocortisone (Anusol-HC) 2.5 % rectal cream Topical, Every 12 hours lactulose (Chronulac) 10 GM/15ML solution TAKE 15 ML BY MOUTH DAILY NEEDED FOR LAXATIVE EFFECT liver oil-zinc oxide (Desitin) 40 % ointment Apply a small amount of cream to itchy, irritated skinoutside the vagina 3x a day loratadine (Claritin) 10 MG tablet TAKE 1 TABLET BY MOUTH EVERY DAY metFORMIN (Glucophage) 500 MG tablet TAKE 1 TABLET BY MOUTH TWICE A DAY WITH MORNING AND EVENING MEALS montelukast (SINGULAIR) 10 mg, Oral, Nightly polyethylene glycol, PEG, 3350 (Miralax) 17 g packet TAKE 17 GRAMS BY MOUTH TWICE DAILY Follow-up: 4 months or sooner if any problem arises. Scribe Attestation: Anthony Ramos, am serving as a scribe to document services personally performed by Shanon Harris MD,based on the patient's response to questions by provider and provides statements to me. Physicians Attestation: Shanon aRmos, have reviewed the information by the scribe, Larisa Green, for accuracy and agree with its content. documented in this encounter Miscellaneous Notes * Assessment & Plan Note - Shanon Harris MD - 04/02/2024 10:55 AM ESTAssociated Problem(s): Transaminitis - history of positive Hep C antibody, which was cleared naturally - most likely MASLD / fatty liver - continue working on lifestyle modifications - check hepatitis profile - Hep A immunity not available; will check and immunize if non-reactive - complete Hep B immunizations * Assessment & Plan Note - Shanon Harris MD - 04/02/2024 10:50 AM ESTAssociated Problem(s): Anxiety - She is aware of her symptoms and condition. - She does not want to take a medication or engage in counseling. 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 * Assessment & Plan Note - Anthony Little - 03/27/2024 1:55 PM ESTAssociated Problem(s): Allergic rhinitis - continue flonase, loratadine and montelukast * Assessment & Plan Note - Anthony Little - 03/27/2024 1:55 PM ESTAssociated Problem(s): Diabetes mellitus, type 2 (CMS/HCC) Dx type 2 DM on January 15, 2020 by RGB > 500 -A1C > 14% on 01/23/20 -A1C 6.0% on 10/26/23 -A1C 6.6% on 03/27/24 -Currently managing with lifestyle modifications -Treatment Hx: Metformin 1 g bid after Dx; tapered down as she improved her diet, and completely discontinued metformin on 04/21/21 -Comprehensive eye exam: 03/11/20 at [facility] eye care, no diabetic retinopathy -Foot exam 07/22/23 -Last Lipid profile 03/27/24, She does not want to start statin -Last microalbuminuria test on 03/27/24, no microalbuminuria -Follow-up in 4-6 months or sooner prn * Assessment & Plan Note - Anthony Little - 03/27/2024 1:55 PM ESTAssociated Problem(s): Medullary sponge kidney - following with food operations manager * Assessment & Plan Note - Anthony Little - 03/27/2024 1:55 PM ESTAssociated Problem(s): Angiomyolipoma of kidney -s/p Embolization of angiomyolipoma 06/04/[address] 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 - most recent MRI on 03/16/23 showed 3.3 cm angiolipoma in the upper pole of right kidney, slightlyexophytic, smaller in size. There is another stable small angiolipoma in the lower pole of right kidney. * Assessment & Plan Note - Anthony Little - 03/27/2024 1:54 PM ESTAssociated Problem(s): Essential hypertension -Goal BP < 140/90 per JNC-8, < [...] -follow-up in 6 months or sooner prn. * Assessment & Plan Note - Anthony Little - 03/27/2024 1:54 PM ESTAssociated Problem(s): Asthma - Following with [facility] Manager Commercial, last seen on 08/28/22. Next appointment in Apr 2023 - Treatment Hx: Flovent Changed to Advair HFA + Singulair added in May 2022 - Continue Advair HFA and montelukast - Advised to get her lab done so that allocations clerk can assess if pt will benefit from biologic Tx. - follow-up with Manager Commercial as scheduled - follow-up with PCP in 4-6 mo documented in this encounter Plan of Treatment Scheduled Orders Name Type Priority Associated Diagnoses Orde r Schedule POCT glycosylated hemoglobin (Hgb A1c) Point of Care Testing Routine Type 2 diabetes mellitus without complication, without long-term current use of insulin ([facility]) Ordered: 03/27/2024 documented as of this encounter Procedures Procedure Name Priority Date/Time Associated Diagnosis Comments POCT GLUCOSE Routine 03/27/2024 1:57 PM EST Type 2 diabetes mellitus without complication, without long-term current use of insulin ([facility]) documented in this encounter Results * POCT glucose manually resulted (03/27/2024 1:57 PM EST) Glucose Blood, POC 109 60 - 200 mg/dL QC Media Lot # [id number] Lot# Expiration Date Blood Capillary blood specimen / Unknown 03/27/2024 1:57 PM EST Shanon Harris MD POINT OF CARE TEST ENTER/EDIT OR DERABLES Final Result documented in this encounter Visit Diagnoses Diagnosis Moderate persistent asthma without complication- Primary Essential hypertension Unspecified essential hypertension Medullary sponge kidney Congenital medullary sponge kidney Angiomyolipoma of kidney Type 2 diabetes mellitus without complication, without long-term current use of insulin ([facility]) Allergic rhinitis, unspecified seasonality, unspecified trigger Anxiety Anxiety state, unspecified Hepatitis C antibody test positive Other and unspecified nonspecific immunological findings Transaminitis Nonspecific elevation of levels of transaminase or lactic acid dehydrogenase (LDH) documented in this encounter Additional Health Concerns Assessment Noted Time PHQ-9 Depression Total Score: 5 10/26/19 24 1:59 PM EDT documented as of this encounter Care Teams Radioactive Waste Disposal Dispatcher Relationship Specialty Start Date End Date Shanon Harris MD [address] [place] [id number] PCP - General Family Medicine 03/22/18 documented as of this encounter
--- OUTSIDE RECORDS SUMMARY | 2024-04-12 08:45 | XMS_ITS | Encounter Summary ---
Author Organization [employer] Address [address] [facility] [address] [place] [address] Care Team Providers Care Medicare Specialist Name Role Phone Shanon Harris MD Primary Care Provider [phone] Reason for Visit * Reason Onset Date Comments chart prep 03/24/2024 Encounter Details Date Type Department Care Team (Late st Contact Info) Description 03/24/2024 Telephone [facility]INE [address] [place] [address] Shayla Jay MA chart prep Social History Tobacco Use Types Packs/Day Years [...] encounter Miscellaneous Notes * Telephone Encounter - Shayla Jay MA - 03/24/2024 8:54 AM EST .Chart Prep Labs: not done from 10/29/23 Images: not applicable Vaccines due: Covid Due, Hep B Due, and Flu Due Referrals: Not Applicable Sarbjit appt 08/05/24 Screenings: Not Applicable Overdue care gaps: Sbirt documented in this encounter Plan of Treatment Not on file documented as of this encounter Visit Diagnoses Not on filedocumented in this encounter Additional Health Concerns Assessment Noted Time PHQ-9 Depression Total Score: 5 10/26/19 24 1:59 PM EDT documented as of this encounter Care Teams Medicare Specialist Relationship Specialty Start Date End Date Shanon Harris MD [address] [place] [address] PCP - General Family Medicine 03/22/18 documented as of this encounter
--- OUTSIDE RECORDS SUMMARY | 2024-04-12 08:45 | XMS_ITS | Encounter Summary ---
Author Organization [employer] Address [address] [facility] 7t [place] [address] Care Team Providers Care Filenet Architect Name Role Phone Shanon Harris MD Primary Care Provider [phone] Reason for Referral * Imaging (Routine) - Authorized Specialty Diagnoses / Procedures Referred By Nida díaz Referred To Contact Radiology Diagnoses Transaminitis Procedures US Abdomen Comp w elastography Shanon Harris MD [address] [place] [address] Phone: tel: fax: [address] Phone: tel: fax: Referral ID Status Reason Start Date Expiration Date V isits Requested Visits Authorized [id number] Authorized 03/27/2024 03/27/2025 1 1 Encounter Details Date Type Department Care Team (Late st Contact Info) Description 03/27/2024 Orders Only [facility] MED[facility] [address] [place] [address] [phone] Shanon Harris MD [address] [place], [place] [phone] Transaminitis (Primary Dx) Social History Tobacco Use Types Packs/Day Years [...] as of this encounter Plan of Treatment Scheduled Orders Name Type Priority Associated Diagnoses Orde r Schedule Hepatitis A Antibody, Total Lab Routine Transaminitis Expected: 03/27/2024 (Approximate), Expires: 03/27/2025 Hepatitis B Core Antibody, Total Lab Routine Transaminitis Expected: 03/27/2024 (Approximate), Expires: 03/27/2025 Hepatitis B Surface Antibody, Qualitative Lab Routine Transaminitis Expected: 03/27/2024 (Approximate), Expires: 03/27/2025 Hepatitis B surface antigen, EIA Lab Routine Transaminitis Expected: 03/27/2024 (Approximate), Expires: 03/27/2025 Hepatitis C Antibody with Reflex to HCV, RNA, Quantitative, Real-Time PCR Lab Routine Transaminitis Expected: 03/27/2024 (Approximate), Expires: 03/27/2025 CBC auto differential Lab Routine Transaminitis Expected: 03/27/2024 (Approximate), Expires: 03/27/2025 Prothrombin Time-INR Lab Routine Transaminitis Expected: 03/27/2024, Expires: 03/27/2025 US Abdomen Comp w elastography Imaging Routine Transaminitis Expected: 03/27/2024, Expires: 03/27/2025 documented as of this encounter Visit Diagnoses Diagnosis Transaminitis- Primary Nonspecific elevation of levels of transaminase or lactic acid dehydrogenase (LDH) documented in this encounter Additional Health Concerns Assessment Noted Time PHQ-9 Depression Total Score: 5 10/26/19 24 1:59 PM EDT documented as of this encounter Care Teams Filenet Architect Relationship Specialty Start Date End Date Shanon Harris MD [address] [place] [address] PCP - General Family Medicine 03/22/18 documented as of this encounter
--- OUTSIDE RECORDS SUMMARY | 2024-04-12 08:45 | XMS_ITS | Encounter Summary ---
Author Organization [employer] Address [address] [facility] 7t [place] [address] Care Team Providers Care Leach Cell Operator Name Role Phone Shanon Harris MD Primary Care Provider [phone] Reason for Visit * Reason Comments Med Refill Encounter Details Date Type Department Care Team ([facility] st Contact Info) Description 04/14/2022 Refill [facility] [address] [place] [address] Shanon Harris MD [address] [place] [address] Social History Tobacco Use Types Packs/Day Years [...] Orientation Straight 01/19/2022 10 :14 AM EDT COVID-19 Exposure Response Date Recorded In the last 10 days, have yo u been in contact with someone who was confirmed or suspected to have Coronavirus/COVID-19? No / Unsure 04/08/2022 10:59 AM EST documented as of this encounter Plan of Treatment Not on file documented as of this encounter Visit Diagnoses Not on filedocumented in this encounter Additional Health Concerns Assessment Noted Time PHQ-9 Depression Total Score: 0 04/08/19 23 11:25 AM EST documented as of this encounter Care Teams Leach Cell Operator Relationship Specialty Start Date End Date Shanon Harris MD [address] [place] [address] PCP - General Family Medicine 03/22/18 documented as of this encounter
[2024-04-12 11:57] LABS: MANUAL DIFF FLAG NO
[2024-04-12 12:03] LABS: Basophils Percent Auto 0.2 % (0-2); Eosinophils Absolute Auto 0.1 X10*3/uL (0.0-0.4); Eosinophils Percent Auto 1.1 % (0-4); Hematocrit 45.9 % (37.0-47.0); Hemoglobin 14.6 g/dl (12.0-16.0); Imm Gran Abs Auto 0.01 X10*3/uL (0.00-0.03); Imm Gran Pct Auto 0.2 % (0.0-0.4); Lymphocytes Absolute Auto 1.3 X10*3/uL (1.2-4.9); Lymphocytes Percent Auto 28.1 % (20-40); Mean Corpuscular HGB Conc 31.8 g/dl (31.0-35.0); Mean Corpuscular Hemoglobin 27.1 pg (27.0-33.0); Mean Corpuscular Volume 85.3 fL (80.0-98.0); Mean Platelet Volume 9.5 fL (9.4-12.3); Monocytes Absolute Auto 0.6 X10*3/uL (0.1-1.2); Monocytes Percent Auto 13.1 % (2-11); Neutrophils Absolute Auto 2.7 x10*3/uL (2.0-8.3); Neutrophils Percent Auto 57.3 % (45-73); Platelet Count 313 X10*3/uL (160-400); Red Blood Count 5.38 X10*6/uL (4.20-5.50); Red Cell Distribution Width 13.1 % (11.0-16.0); White Blood Count 4.7 X10*3/uL (4.8-10.8)
[2024-04-12 13:01] LABS: Hepatitis A Antibody IgG REACTIVE (Nonreactive); ~Hepatitis A Antibody IgG 6.17 S/CO (0.00-0.99)
[2024-04-12 13:06] LABS: HBS Num1 2.77 mIU/mL (0-7.99); HBc Num1 0.25 S/CO (0.00-0.79); HBsAGNum1 0.43 S/CO (0.00-0.99); Hepatitis B Core Antibody Nonreactive (Nonreactive); Hepatitis B Surface Antigen Negative (Negative); ~HepC Num1 0.12 S/CO (0.00-0.79); ~Hepatitis B Surface Antibody NONREACTIVE (Nonreactive); ~Hepatitis C Antibody Nonreactive (Nonreactive)
== END 2024-04-12 08:34 | disposition home or self-care (01) ==
LOC: HO.HHCL 08:33
PROVIDERS: Visit Provider Family Medicine
DX: R74.01 Elevation of levels of liver transaminase levels (principal)
CPT/HCPCS: 36415; 85025; 85610; 86704; 86706; 86708; 86803; 87340

== ENCOUNTER 2024-04-19 08:36 | Outpatient (REF) | payer MEDICAID, SELFPAY ==
--- NOTE | ~2024-04-19 | US_ITS ---
EXAMINATION: US ABDOMEN COMPLETE WITH LIVER ELASTOGRAPHY HISTORY: transaminitis. Most likely fatty liver TECHNIQUE: Real-time grayscale ultrasound imaging of the abdomen was performed and images were reviewed. COMPARISON: Comparison is made with the prior examination dated 10/17/2018. FINDINGS: Liver: The liver is enlarged, but demonstrates homogeneous echotexture. No focal mass or intrahepatic biliary ductal dilatation is identified. There is an 8 mm calcification in the right lobe. There is normal hepatopedal flow in the portal vein. Ultrasound elastography of the liver was performed with 10 separate measurements of the liver parenchyma with the patient in the supine position. Measurements were obtained approximately 2 cm below Franklin's capsule and perpendicular to the capsule. Images are of satisfactory quality. The median shear wave velocity is 1.53 m/s. The interquartile range/median (IQR/median) is 0.15. Gallbladder and biliary tree: The gallbladder is surgically absent. The common bile duct is normal in caliber measuring 8 mm. Kidneys: The right kidney measures 11.2 cm in length and demonstrates a 9 x 5 x 10 mm upper pole cyst. Multiple echogenic masses are again noted, consistent with angiomyolipomas. The largest mass measures 3.0 x 1.9 x 4.0 cm, similar in size to the prior study. There is no hydronephrosis. The left kidney measures 12.5 cm in length and is unremarkable, without evidence of masses, hydronephrosis, or calculi. Pancreas: The pancreatic head, neck, and body are unremarkable. The pancreatic tail is obscured by bowel gas. Spleen: The spleen is normal in size and contour, measuring 9.4 cm in length. Abdominal aorta and inferior vena cava: The visualized portions of the abdominal aorta and inferior vena cava are normal in caliber. There is no free fluid in the abdomen. US/US abdomen comp w elastography IMPRESSION: Unremarkable abdominal ultrasound. The median shear wave velocity is 1.53 m/s, corresponding to a median liver stiffness of 7.07 kPa. The IQR/median value is 0.15. This is indicative of a quality data set. Findings are indicative of a low elastography value which rules out advanced chronic liver disease in asymptomatic patients. REFERENCE: Society of Radiologists in Ultrasound Liver Stiffness Thresholds (2020): LIVER STIFFNESS THRESHOLDS: *Shear wave velocity less than 1.3 m/s (Liver Stiffness equal or less than 5 kPa): High probability of being normal. *Shear wave velocity less than 1.7 m/s (Liver Stiffness less than 9 kPa): In the absence of other known clinical signs, rules out compensated advanced chronic liver disease. *Shear wave velocity between 1.7-2.1 m/s (Liver Stiffness 9-13 kPa): Suggestive of compensated advanced chronic liver disease but need further test for confirmation. *Shear wave velocity between 2.1-2.4 m/s (Liver Stiffness 13-17 kPa): Rules in compensated advanced chronic liver disease. *Shear wave velocity greater than 2.4 m/s (Liver Stiffness over 17 kPa): Suggestive of clinically significant portal hypertension. QUALITY OF DATA SET: *IQR/Median value equal or less than 0.15 implies a quality data set. *IQR/Median value over 0.15 implies a poor quality data set. SIGNIFICANT CHANGE FROM PRIOR EXAM: Significant change if liver stiffness measurement is 10% or greater from prior exam. OTHER CONSIDERATIONS: The stage of liver fibrosis may be overestimated in the setting of acute hepatitis, liver inflammation, elevated liver function tests, hepatic vascular congestion, obstructive cholestasis, non-fasting state, and infiltrative diseases such as amyloidosis and lymphoma. In some patients with NAFLD, the liver stiffness thresholds for compensated advanced chronic liver disease may be lower. In causes other than viral hepatitis and NAFLD, liver stiffness thresholds are not well established. Electronically signed by: John Lee MD 04/19/2024 01:39 PM [facility]
--- OUTSIDE RECORDS SUMMARY | 2024-04-19 08:57 | XMS_ITS | Clinical Summary ---
Author Organization [facility] Address [address] [place] [address] Phone Care Team Providers Care Hydrogeology Professor Name Role Phone Shanon Harris MD Primary Care Provider [phone] Allergies Active Allergy Reactions Criticality Noted Date [...] Visit [facility] [address] [place] [address] Uriel Lara MD [address] [facility] [address] [place] [address] Health Maintenance Due Date Last [...] Insurance [place] Care Teams Hydrogeology Professor Relationship Specialty Start Date End Date Shanon Harris MD PCP - General 04/01/20
--- OUTSIDE RECORDS SUMMARY | 2024-04-19 08:58 | XMS_ITS | Clinical Summary ---
Author Organization [facility] Address [address] [place] [address] Phone Care Team Providers Care Men'S Locker Room Attendant Name Role Phone Physician, Pcp Unknown Primary Care Provider Dorothy vailable Encounters Date Type Department Care Team Description 04/03/2024 2:04 PM EST - 04/03/2024 11:59 PM EST Hospital Encounter [facility] MRI [address] [place] [address] Angiomyolipoma Discharge Disposition: Home or [...] Signed Date: 04/06/2024 14:11 ET Workstation ID: [id number] Transcribed By: Self Edit Transcribed Date: 04/06/2024 [...] Signed Date: 04/06/2024 14:11 ET Workstation ID: [id number] Transcribed By: Self Edit Transcribed Date: 04/06/2024 12:39 ET Cedric Fuentes MD IMG MRI PROCEDURES from Last 3 Months Care Teams Men'S Locker Room Attendant Relationship Specialty Start Date End Date Physician, Pcp Unknown PCP - General 04/03/24
--- OUTSIDE RECORDS SUMMARY | 2024-04-19 08:58 | XMS_ITS | Encounter Summary ---
Author Organization [facility] Address [address] [place] [address] Care Team Providers Care Poultry Offal Worker Name Role Phone Physician, Pcp Unknown Primary Care Provider Dorothy vailable Reason for Referral * Imaging (Routine) - Pending Review Specialty Diagnoses / Procedures Referred By Contac t Referred To Contact Radiology Diagnoses Angiomyolipoma Procedures MR Abdomen wo and w Contrast Cedric Fuentes MD [address] [place] [address] [facility] Referral ID Status Reason Start Date Expiration Date V isits Requested Visits Authorized [id number] Pending Review 03/30/2024 03/30/2025 1 1 Reason for Visit * Imaging (Routine) - Pending Review Specialty Diagnoses / Procedures Referred By Nida díaz Referred To Contact Radiology Diagnoses Angiomyolipoma Procedures MR Abdomen wo and w Contrast Cedric Fuentes MD [address] [place] [address] [facility] Referral ID Status Reason Start Date Expiration Date V isits Requested Visits Authorized [id number] Pending Review 03/30/2024 03/30/2025 1 1 Encounter Details Date Type Department Care Team (Latest Contact Info) Description 04/03/2024 2:04 PM EST - 04/03/2024 11:59 PM EST Hospital Encounter [facility] MRI [address] [place] [address] Angiomyolipoma Discharge Disposition: Home or [...] Signed Date: 04/06/2024 14:11 ET Workstation ID: [id number] Transcribed By: Self Edit Transcribed Date: 04/06/2024 [...] Signed Date: 04/06/2024 14:11 ET Workstation ID: [id number] Transcribed By: Self Edit Transcribed Date: 04/06/2024 [...] Antecubital documented in this encounter Care Teams Poultry Offal Worker Relationship Specialty Start Date End Date Physician, Pcp Unknown PCP - General 04/03/24 documented as of this encounter
== END 2024-04-19 08:37 | disposition home or self-care (01) ==
LOC: HO.US 08:36
PROVIDERS: PCP Family Medicine; Visit Provider Family Medicine
DX: R74.01 Elevation of levels of liver transaminase levels (principal)
CPT/HCPCS: 76700; 76981

== ENCOUNTER → 2024-04-19 08:38 | Outpatient (BNV) | payer MEDICAID, SELFPAY | PROVIDERS: PCP Family Medicine; Visit Provider Radiology Diagnostic Radiology | DX: R74.01 Elevation of levels of liver transaminase levels (principal) | CPT/HCPCS: 76700 ==

== ENCOUNTER 2024-06-30 11:31 | Outpatient (AMB) | payer MEDICAID, SELFPAY ==
--- NOTE | 2024-06-30 11:37 | A.OFFVIS_ITS ---
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 Intake Note: no concerns Allergies aspirin [Aspirin] Allergy (Mild, Verified 06/30/24 11:49) UNKNOWN, causes bleeding in her kidney morphine [Morphine] Allergy (Mild, Verified 06/30/24 11:49) UNKNOWN penicillin V Allergy (Unknown, Verified 06/30/24 11:49) rash and edema seafood, pollen Allergy (Unknown, Uncoded 06/30/24 11:49) Anaphylaxis Medication List - Last Reconciled 06/30/24 by Kaylee Rivera CNM albuterol sulfate 90 mcg/actuation (ProAir HFA) 2 puffs inhalation Q6H PRN amlodipine 2.5 mg PO QAM docusate sodium (Colace) 100 mg PO BID fluticasone propion-salmeterol 45-21 mcg/actuation (Advair HFA) 2 puffs inhalation BID 30 days fluticasone propionate 50 mcg/actuation 2 sprays intranasal DAILY 30 days loratadine 10 mg PO DAILY montelukast (Singulair) 10 mg PO BEDTIME 30 days Post menopausal: Yes HPI HPI [employer] annual exam: Details: 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 She has no worries about infection. She said she started her period when she was 6-/2 and she went through menopause pause when she was 40 after having her last child. 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 Medical History Environmental allergies Chronic allergic rhinitis Asthma Diabetes Asthma Hypertension Surgical History History of kidney surgery Hx of cholecystectomy H/O dilation and curettage Family History (Updated 06/30/24 @ 11:53 by Stephanie Ibanez CMA) Mother Heart attack Diabetes Father Diabetes HTN (hypertension) Heart disease Brother Diabetes Lung cancer Sister Diabetes Heart attack Social History (Updated 06/30/24 @ 11:53 by Stephanie Ibanez CMA) Household Members: Spouse and Children Housing: House Alcohol intake: never Patient Tobacco Use Status: Never used Tobacco Current occupational status: unemployed Sexually active: Yes Sexual orientation: Straight/Heterosexual Gender identity: Female Female Reproductive History Menstrual Age of Menarche: 6 Total pregnancies: 4 Full term: 1 Number of Living Children: 1 Ab spontaneous: 3 Date of last pap smear: 08/01/20 Date of Mammogram: 07/31/23 Physical Exam Vital Signs: Last Vital Signs BP 150/90 H 06/30/24 11:40 BMI result Body Mass Index 28.0 Const General: healthy appearing, comfortable, no acute distress, well developed and alert Nutritional Appearance: average body habitus Orientation/consciousness: patient oriented x3 Limitations: no limitations HEENT Head: Yes normocephalic Neck Neck: Yes normal visual inspection Chest Chest palpation & inspection: normal inspection of the chest Breast/axilla inspection: normal inspection of the breasts and normal inspection of the axillae Breast/axilla palpation: normal palpation of the breasts and normal palpation of the axillae Resp Effort & Inspection: normal respiratory effort GI Inspection: Yes normal to inspection, No Abdominal wall edema and No distended Palpation (GI): Soft to palpation and nontender Other: Postmenopausal changes evident with thinning mucosa, scant clear discharge cervix multiparous pink postmenopausal changes evident cervix and uterus small mobile nontender adnexa nontender good tone with Kegel. General: Yes bladder normal to palpation External Female Exam: normal external appearance and normal appearance of the urethra Speculum Exam - Vagina: normal appearance of the vagina, normal palpation and normal vaginal discharge Speculum Exam - Cervix: normal appearance of the cervix, normal palpation and n ontender Bimanual exam- vagina & uterus: normal bimanual exam, normal palpation, uterine size normal, bladder normal to palpation, consistency normal, normal palpation, uterine mobility normal, uterine shape normal, No Cervical tenderness present, non-tender and no cervical motion tenderness Bimanual Exam- Adnexa, other: normal adnexae, no masses, normal and No adnexal tenderness Neuro General: patient oriented x3 Results Reviewed Results Reviewed: Name: Mari Saravia Age/Sex: 50/F Attending: Usman Joshua MD : 1970 Submitted by: Usman Joshua MD Copies to: MELIDA RODARTE MD MR #: [id number] Status: DEP REF Collected: 07/31/20 Location: .LAB Received: 08/01/20 Interpretation Satisfactory for evaluation. Negative for intraepithelial lesion or malignancy. Atrophic. HPV mRNA E6/E7: NOT DETECTED This assay detects E6/E7 viral messenger RNA (mRNA) from 14 high-risk HPV types (16, 18, 31, 33, 35, 39, 45, 51, 52, 56, 58, 59, 66, 68) ed HPV testing performed by [facility], [place], [place]. See reference laboratory portion of the EMR for entire report. Clinical Information LMP: Pm Previous PAP test: Unknown date, wnl Material Received ThinPrep cervical Copies To MELIDA RODARTE MD [address] [place] [address] Usman Joshua MD [address] [place] [address] Electronically Signed By: Yuridia Valdez 08/12/20 1329 The Pap Test is a screening procedure with the inherent possibility of both false negative and false positive results. Results should be interpreted in the context of historic and current clinical findings. Reliability of the Pap Test is enhanced by performing the test on a regular repetitive basis. Patient: Mari Saravia Age/Sex: 50/F MR#: [id number] Page 1 of 1 Name: Mari Saravia Age/Sex: 50/F Attending: Usman Joshua MD : 1970 Submitted by: Usman Joshua MD Copies to: MELIDA RODARTE MD MR #: [id number] Status: DEP REF Collected: 07/31/20 Location: .LAB Received: 08/01/20 Interpretation Satisfactory for evaluation. Negative for intraepithelial lesion or malignancy. Atrophic. HPV mRNA E6/E7: NOT DETECTED This assay detects E6/E7 viral messenger RNA (mRNA) from 14 high-risk HPV types (16, 18, 31, 33, 35, 39, 45, 51, 52, 56, 58, 59, 66, 68) ed HPV testing performed by [facility], [place], [place]. See reference laboratory portion of the EMR for entire report. Clinical Information LMP: Pm Previous PAP test: Unknown date, wnl Material Received ThinPrep cervical Copies To MELIDA RODARTE MD [address] [place] [address] Usman Joshua MD [address] [place] [address] Electronically Signed By: Yuridia Valdez 08/12/20 1328 The Pap Test is a screening procedure with the inherent possibility of both false negative and false positive results. Results should be interpreted in the context of historic and current clinical findings. Reliability of the Pap Test is enhanced by performing the test on a regular repetitive basis. Patient: Mari Saravia Age/Sex: 50/F MR#: [id number] Page 1 of 1 Assessment & Plan Assessment & Plan (1) Well woman exam with routine gynecological exam: Code(s): Z01.419 - Encounter for gynecological examination (general) (routine) without abnormal findings Category: Medical (2) Cervical cancer screening: Comment: last pap neg w neg hpv 2020 w MZ, Code(s): Z12.4 - Encounter for screening for malignant neoplasm of cervix Category: Medical (3) Early menopause occurring in patient age younger than 45 years: Code(s): E28.319 - Asymptomatic premature menopause Category: Medical Plan -----Discussed in this visit the following: healthy balanced diet, regular and consistent exercise, getting recommended health screens, doing the best she can for her particular health concerns, kegel exercises, pap smear screening and followup recommendations, mammography screening and SBE, normal changes in cycles in her life stage--- . Due for her Pap next year she has no concerns at all about STIs she follows with her kidney doctors and primary care about her blood pressure and kidney issues and she is doing well she says she does not like to do exercise she does more walking up and downstairs and house work but she is active and watches her health and weight and she says everything is in good control. Coding Level of Care Code Est Pt Prev Care 40-64y(66299) Diagnoses Well woman exam with routine gynecological exam Z01.419 Cervical cancer screening Z12.4 Early menopause occurring in patient age younger than 45 years E28.319
[2024-06-30 11:40] VITALS: BP 150/90; BMI 28.0
--- OUTSIDE RECORDS SUMMARY | 2024-06-30 12:33 | XMS_ITS | Encounter Summary ---
Author Organization [employer] Address [address] [place] [address] [address] [place] [address] Care Team Providers Care Director Dental Services Name Role Phone Shanon Harris MD Primary Care Provider [phone] Reason for Visit * Reason Comments Med Refill Encounter Details Date Type Department Care Team (Late Contact Info) Description 05/09/[address] [facility] [address] [place] [phone] Shanon Harris MD [address] [place] [address] [phone] Social History Tobacco Use Types Packs/Day Years [...] as of this encounter Plan of Treatment Upcoming Encounters Date Type Department Care Team (Late Contact Info) Description 07/25/2024 1:30 PM EDT Office Visit [facility] [address] [place] [address] Shanon Harris MD [address] [place] [address] [phone] documented as of this encounter Visit Diagnoses Not on filedocumented in this encounter Additional Health Concerns Assessment Noted Time PHQ-9 Depression Total Score: 0 04/08/19 23 11:25 AM EST documented as of this encounter Care Teams Director Dental Services Relationship Specialty Start Date End Date Shanon Harris MD [address] [place] [address] PCP - General Family Medicine 03/22/18 documented as of this encounter
--- OUTSIDE RECORDS SUMMARY | 2024-06-30 12:33 | XMS_ITS | Clinical Summary ---
Author Organization [facility] Address [address] [place] [address] Phone Care Team Providers Care Reinspector Name Role Phone Shanon Harris MD Primary Care Provider [phone] Allergies Active Allergy Reactions Criticality Noted Date [...] calcium metabolism 02/24/2021 Essential hypertension 02/24/2021 Immunizations Immunization Administration Dates Next Due Hep A, 2 [...] Visit [facility] [address] [place] [address] Uriel Lara MD [address] [facility] [address] [place] [address] Health Maintenance Due Date Last Done Comments Breast Cancer Screening 1970 Hepatitis B Vaccine (1 of 3 - 19+ 3-dose series) 1988 12/19/2008, 10/04/2008 Colorectal Cancer Screening: Annual FOBT 2018 Colorectal Cancer Screening: Colonoscopy 2018 Colorectal Cancer Screening: Sigmoidoscopy 2018 Pneumococcal Vaccine: Peds ( 0 to 5 Years) and At-Risk Patients (6 to 49 Years) (2 of 2 - PCV) 01/31/2021 02/01/2020 Diabetes: Pedal Pulse Checked 09/14/2022 Diabetes: Sensory Foot Exam 09/14/2022 Diabetes: Visual Foot Exam 09/14/2022 Diabetes: Ophthalmology Exam 06/30/2023 06/29/2022 Diabetes: Hemoglobin A1C 10/22/2023 07/22/2023 Influenza Vaccine (Season Ended) 2024 02/01/20, 05/23/2018 [place] Care Teams Reinspector Relationship Specialty Start Date End Date Shanon Harris MD PCP - General 04/01/20
--- OUTSIDE RECORDS SUMMARY | 2024-06-30 12:33 | XMS_ITS | Encounter Summary ---
Author Organization [employer] Address [address] [facility] 7t [place] [address] Care Team Providers Care Emergency Medicine Name Role Phone Shanon Harris MD Primary Care Provider [phone] Encounter Details Date Type Department Care Team (Latest Contact Info) Description 10/21/2018 Abstract [facility] Dental, Provider, DDS Social History [...] Care Team (Late st Contact Info) Description 07/25/2024 1:30 PM EDT Office Visit [facility] [address] [place] [address] Shanon Harris MD [address] [place] [address] documented as of this encounter Visit Diagnoses Not on filedocumented in this encounter Care Teams Emergency Medicine Relationship Specialty Start Date End Date Shanon Harris MD [address] [place], [place] [phone] PCP - General Family Medicine 03/22/18 documented as of this encounter
--- OUTSIDE RECORDS SUMMARY | 2024-06-30 12:33 | XMS_ITS | Encounter Summary ---
Author Organization [employer] Address [address] [facility] 7t [place] [address] Care Team Providers Care Credit Collections Manager Name Role Phone Shanon Harris MD Primary Care Provider [phone] Reason for Referral * Imaging (Routine) - Closed Specialty Diagnoses / Procedures Referred By Nida díaz Referred To Contact Radiology Diagnoses Transaminitis Procedures US Abdomen Comp w elastography Shanon Harris MD [address] [place] [address] Phone: tel: fax: [address] Phone: tel: fax: Referral ID Status Reason Start Date Expiration Date Visits Re quested Visits Authorized [id number] Closed 03/27/2024 03/27/2025 1 0 Encounter Details Date Type Department Care Team (Late st Contact Info) Description 03/27/2024 Orders Only [facility] [address] [place] [address] [phone] Shanon Harris MD [address] [place], [place] [phone] Transaminitis (Primary Dx) Social History Tobacco Use [...] Description 07/25/2024 1:30 PM EDT Office Visit [facility] [address] [place] [address] Shanon Harris MD [address] [place] [address] documented as of this encounter Procedures Procedure Name Priority Date/Time Associated Diagnosis Comments US ABDOMEN COMPLETE WITH ELASTOGRAPHY Routine 04/19/2024 9:04 AM EST Transaminitis CBC WITH AUTO DIFFERENTIAL Routine 04/12/2024 8:43 AM EST Transaminitis HEPATITIS C AB W/REFL TO HCV RNA, QN, PCR Routine 04/12/2024 8:34 AM EST Transaminitis HEPATITIS A ANTIBODY, TOTAL Routine 04/12/2024 8:34 AM EST Transaminitis HEPATITIS B SURFACE ANTIGEN, EIA Routine 04/12/2024 8:34 AM EST Transaminitis HEPATITIS B CORE AB TOTAL Routine 04/12/2024 8:34 AM EST Transaminitis HEPATITIS B SURFACE ANTIBODY, QUALITATIVE Routine 04/12/2024 8:34 AM EST Transaminitis PROTHROMBIN TIME-INR Routine 04/12/2024 8:34 AM EST Transaminitis documented in this encounter Results * US Abdomen Comp w elastography (04/19/2024 9:04 AM EST) Anatomical Region Laterality Modality Abdomen Ultrasound 04/19/2024 9:04 AM EST Narrative 04/19/2024 1:42 PM EST ? [facility] ?[address] ?[place] [address] ? Ultrasound Report ? Signed ? Patient: Mari Saravia ?MR#: [id number] ?? 97 ? : 1970 ?Acct:[id number] ? Age/Sex: 53 / F ?ADM Date: 04/19/24 ? Loc: HO.US ? Attending Dr: Shanon Harris MD ? Ordering Physician: Shanon Harris MD ?? Date of Service: 04/19/24 ?? Procedure(s): US abdomen comp w elastography ?? Accession Number(s): [id number] ? cc: Shanon Harris MD ? EXAMINATION: ??US ABDOMEN COMPLETE WITH LIVER ELASTOGRAPHY ? HISTORY: transaminitis. ??Most likely fatty liver ? TECHNIQUE: Real-time grayscale ultrasound imaging of the abdomen was ?? performed and images were reviewed. ? COMPARISON: Comparison is made with the prior examination dated ?? 10/17/2018. ? FINDINGS: ?? Liver: ??The liver is enlarged, but demonstrates homogeneous ?? echotexture. ??No focal mass or intrahepatic biliary ductal dilatation ?? is identified. There is an 8 mm calcification in the right lobe. ??There ?? is normal hepatopedal flow in the portal vein. ? Ultrasound elastography of the liver was performed with 10 separate ?? measurements of the liver parenchyma with the patient in the supine ?? position. ??Measurements were obtained approximately 2 cm below ?? Franklin's capsule and perpendicular to the capsule. ??Images are of ?? satisfactory quality. ? The median shear wave velocity is 1.53 m/s. ?? The interquartile range/median (IQR/median) is 0.15. ? Gallbladder and biliary tree: The gallbladder is surgically absent. ? The common bile duct is normal in caliber measuring 8 mm. ? Kidneys: ??The right kidney measures 11.2 cm in length and demonstrates ?? a 9 x 5 x 10 mm upper pole cyst. Multiple echogenic masses are again ?? noted, consistent with angiomyolipomas. The largest mass measures 3.0 x ?? 1.9 x 4.0 cm, similar in size to the prior study. There is no ?? hydronephrosis. ??The left kidney measures 12.5 cm in length and is ?? unremarkable, without evidence of masses, hydronephrosis, or calculi. ? Pancreas: The pancreatic head, neck, and body are unremarkable. The ?? pancreatic tail is obscured by bowel gas. ? Spleen: The spleen is normal in size and contour, measuring 9.4 cm in ?? length. ? Abdominal aorta and inferior vena cava: The visualized portions of the ?? abdominal aorta and inferior vena cava are normal in caliber. ? There is no free fluid in the abdomen. ? US/US abdomen comp w elastography ?? IMPRESSION: ? Unremarkable abdominal ultrasound. ? The median shear wave velocity is 1.53 m/s, corresponding to a median ?? liver stiffness of 7.07 kPa. ??The IQR/median value is 0.15. ??This is ?? indicative of a quality data set. ?? Findings are indicative of a low elastography value which rules out ?? advanced chronic liver disease in asymptomatic patients. ? REFERENCE: ?? Society of Radiologists in Ultrasound Liver Stiffness Thresholds (2019): ? LIVER STIFFNESS THRESHOLDS: ?? *Shear wave velocity less than 1.3 m/s (Liver Stiffness equal or less ?? than 5 kPa): ??High probability of being normal. ?? *Shear wave velocity less than 1.7 m/s (Liver Stiffness less than 9 ?? kPa): ??In the absence of other known clinical signs, rules out ?? compensated advanced chronic liver disease. ?? *Shear wave velocity between 1.7-2.1 m/s (Liver Stiffness 9-13 kPa): ? Suggestive of compensated advanced chronic liver disease but need ?? further test for confirmation. ?? *Shear wave velocity between 2.1-2.4 m/s (Liver Stiffness 13-17 kPa): ? Rules in compensated advanced chronic liver disease. ?? *Shear wave velocity ??greater than 2.4 m/s (Liver Stiffness over 17 ?? kPa): ??Suggestive of clinically significant portal hypertension. ? QUALITY OF DATA SET: ?? *IQR/Median value equal or less than 0.15 implies a quality data set. ?? *IQR/Median value over 0.15 implies a poor quality data set. ? SIGNIFICANT CHANGE FROM PRIOR EXAM: ?? Significant change if liver stiffness measurement is 10% or greater ?? from prior exam. ? OTHER CONSIDERATIONS: ?? The stage of liver fibrosis may be overestimated in the setting of ?? acute hepatitis, liver inflammation, elevated liver function tests, ?? hepatic vascular congestion, obstructive cholestasis, non-fasting ?? state, and infiltrative diseases such as amyloidosis and lymphoma. ??In ?? some patients with NAFLD, the liver stiffness thresholds for ?? compensated advanced chronic liver disease may be lower. ??In causes ?? other than viral hepatitis and NAFLD, liver stiffness thresholds are ?? not well established. ? Electronically signed by: ??John Lee MD ??04/19/2024 01:39 PM EST ?? RP ? Dictated By: ?John Lee MD ? Signed By: ?<Electronically signed by John Lee MD in OV> ?04/19/24 1339 ? DD/DT: 04/19/ 0904 ? TD/TT: 04/19/24 0924 ? Film Numberer: ? Procedure Note Donotuseinterpreter, Image - 04/19/[address] [address] Ultrasound Report Signed Patient: Alisha Saravia#: [id number] 97 : 1970Acct:[id number] Age/Sex: 53 / FADM Date: 04/19/24 Loc: HO.US Attending Dr: Shanon Harris MD Ordering Physician: Shanon Harris MD Date of Service: 04/19/24 Procedure(s): US abdomen comp w elastography Accession Number(s): [id number] cc: Shanon Harris MD EXAMINATION: US ABDOMEN COMPLETE WITH LIVER ELASTOGRAPHY HISTORY: transaminitis. Most likely fatty liver TECHNIQUE: Real-time grayscale ultrasound imaging of the abdomen was performed and images were reviewed. COMPARISON: Comparison is made with the prior examination dated 10/17/2018. FINDINGS: Liver: The liver is enlarged, but demonstrates homogeneous echotexture. No focal mass or intrahepatic biliary ductal dilatation is identified. There is an 8 mm calcification in the right lobe. There is normal hepatopedal flow in the portal vein. Ultrasound elastography of the liver was performed with 10 separate measurements of the liver parenchyma with the patient in the supine position. Measurements were obtained approximately 2 cm below Franklin's capsule and perpendicular to the capsule. Images are of satisfactory quality. The median shear wave velocity is 1.53 m/s. The interquartile range/median (IQR/median) is 0.15. Gallbladder and biliary tree: The gallbladder is surgically absent. The common bile duct is normal in caliber measuring 8 mm. Kidneys: The right kidney measures 11.2 cm in length and demonstrates a 9 x 5 x 10 mm upper pole cyst. Multiple echogenic masses are again noted, consistent with angiomyolipomas. The largest mass measures 3.0 x 1.9 x 4.0 cm, similar in size to the prior study. There is no hydronephrosis. The left kidney measures 12.5 cm in length and is unremarkable, without evidence of masses, hydronephrosis, or calculi. Pancreas: The pancreatic head, neck, and body are unremarkable. The pancreatic tail is obscured by bowel gas. Spleen: The spleen is normal in size and contour, measuring 9.4 cm in length. Abdominal aorta and inferior vena cava: The visualized portions of the abdominal aorta and inferior vena cava are normal in caliber. There is no free fluid in the abdomen. US/US abdomen comp w elastography IMPRESSION: Unremarkable abdominal ultrasound. The median shear wave velocity is 1.53 m/s, corresponding to a median liver stiffness of 7.07 kPa. The IQR/median value is 0.15. This is indicative of a quality data set. Findings are indicative of a low elastography value which rules out advanced chronic liver disease in asymptomatic patients. REFERENCE: Society of Radiologists in Ultrasound Liver Stiffness Thresholds (2019): LIVER STIFFNESS THRESHOLDS: *Shear wave velocity less than 1.3 m/s (Liver Stiffness equal or less than 5 kPa): High probability of being normal. *Shear wave velocity less than 1.7 m/s (Liver Stiffness less than 9 kPa): In the absence of other known clinical signs, rules out compensated advanced chronic liver disease. *Shear wave velocity between 1.7-2.1 m/s (Liver Stiffness 9-13 kPa): Suggestive of compensated advanced chronic liver disease but need further test for confirmation. *Shear wave velocity between 2.1-2.4 m/s (Liver Stiffness 13-17 kPa): Rules in compensated advanced chronic liver disease. *Shear wave velocity greater than 2.4 m/s (Liver Stiffness over 17 kPa): Suggestive of clinically significant portal hypertension. QUALITY OF DATA SET: *IQR/Median value equal or less than 0.15 implies a quality data set. *IQR/Median value over 0.15 implies a poor quality data set. SIGNIFICANT CHANGE FROM PRIOR EXAM: Significant change if liver stiffness measurement is 10% or greater from prior exam. OTHER CONSIDERATIONS: The stage of liver fibrosis may be overestimated in the setting of acute hepatitis, liver inflammation, elevated liver function tests, hepatic vascular congestion, obstructive cholestasis, non-fasting state, and infiltrative diseases such as amyloidosis and lymphoma. In some patients with NAFLD, the liver stiffness thresholds for compensated advanced chronic liver disease may be lower. In causes other than viral hepatitis and NAFLD, liver stiffness thresholds are not well established. Electronically signed by: John Lee MD 04/19/2024 01:39 PM [facility] Dictated By: John Lee MD Signed By: <Electronically signed by John Lee MD in OV> 04/19/24 1339 DD/ 09 TD/TT: 04/19/24923 Film Numberer: us Shanon Harris MD [facility] PROCEDURES Edited Result - Final * (ABNORMAL) CBC auto differential (04/12/2024 8:43 AM EST) White Blood Count 4.7(L) 4.8 - 10.8 X10*3/uL [facility] Red Blood Count 5.38 4.20 - 5.50 X10*6/uL [facility] Hemoglobin 14.6 12.0 - 16.0 g/dl [facility] Hematocrit 45.9 37.0 - 47.0 % [facility] Mean Corpuscular Volume 85.3 80.0 - 98.0 fL [facility] Mean Corpuscular Hemoglobin 27.1 27.0 - 33.0 pg [facility] Mean Corpuscular HGB Conc 31.8 31.0 - 35.0 g/dl [facility] Red Cell Distribution Width 13.1 11.0 - 16.0 % [facility] Platelet Count 313 160 - 400 X10*3/uL [facility] Mean Platelet Volume 9.5 9.4 - 12.3 fL [facility] Neutrophils Percent Auto 57.3 45 - 73 % [facility] Imm Gran Pct Auto 0.2 0.0 - 0.4 % [facility] Lymphocytes Percent Auto 28.1 20 - 40 % [facility] Monocytes Percent Auto 13.1(H) 2 - 11 % [facility] Eosinophils Percent Auto 1.1 0 - 4 % [facility] Basophils Percent Auto 0.2 0 - 2 % [facility] NRBC Pct Auto 0.0 0.0 - 0.2 /100WBC [facility] Neutrophils Absolute Auto 2.7 2.0 - 8.3 x10*3/uL [facility] Imm Gran Abs Auto 0.01 0.00 - 0.03 X10*3/uL [facility] Lymphocytes Absolute Auto 1.3 1.2 - 4.9 X10*3/uL [facility] Monocytes Absolute Auto 0.6 0.1 - 1.2 X10*3/uL [facility] Eosinophils Absolute Auto 0.1 0.0 - 0.4 X10*3/uL [facility] Basophils Absolute Auto 0.0 0.0 - 0.2 X10*3/uL [facility] NRBC Abs Auto 0.000 0.0 - 0.012 X10*3/uL [facility] Blood Venous blood specimen / Unknown 04/12/2024 8:43 AM EST 04/12/2024 11:45 AM EST Shanon Harris MD LAB BLOOD ORDERABLES Final Resul t Performing Organization Address [facility] de Phone Number [facility] [address] [place] [phone] * Prothrombin Time-INR (04/12/2024 8:34 AM EST) Prothrombin Time 12.0 10.9 - 12.4 SEC [facility] INTERNATIONAL NORM RATIO 1.0 0.9 - 1.1 [facility] Comment:INTERNATIONAL NORMAL IZED RATIO (INR) REFERENCE RANGES Reference RangeFor patients not on anticoagulant therapy: 0.9 - 1.1INR ranges for oral anticoagulanttherapy:For prevention and treatment of venous thrombosis and pulmonary embolism: 2.0 - 3.0For acute myocardial infarction with aspirin therapy: 2.0 - 3.0For acute myocardial infarction without aspirin therapy: 3.0 - 4.0For patients with mechanical prosthetic heart valves: 2.5 - 3.5 Blood Venous blood specimen / Unknown 04/12/2024 8:34 AM EST 04/12/2024 11:45 AM EST Shanon Harris MD LAB BLOOD ORDERABLES Final Resul t Performing Organization Address [facility] Co de Phone Number [facility] [address] [place] [phone] * Hepatitis C Antibody with Reflex to HCV, RNA, Quantitative, Real-Time PCR (04/12/2024 8:34 AM EST) Hepatitis C Antibody Nonreactive Nonreactive [facility] Comment:Antibodies to HCV no t detected; does not exclude early acuteHCV infection. Blood Venous blood specimen / Unknown 04/12/2024 8:34 AM EST 04/12/2024 11:45 AM EST Shanon Harris MD LAB BLOOD ORDERABLES Final Resul t Performing Organization Address [facility] Co de Phone Number [facility] [address] [place] [phone] * Hepatitis B surface antigen, EIA (04/12/2024 8:34 AM EST) Pathologist [facility] Hepatitis B Surface Ag Negative Negative [facility] Blood Venous blood specimen / Unknown 04/12/2024 8:34 AM EST 04/12/2024 11:45 AM EST Shanon Harris MD LAB BLOOD ORDERABLES Final Resul t Performing Organization Address [facility] de Phone Number [facility] [address] [place] [phone] * Hepatitis B Surface Antibody, Qualitative (04/12/2024 8:34 AM EST) Pathologist [facility] ~Hepatitis B Surface Antibody NONREACTIVE Nonreactive [facility] Comment:Nonreactive: < 8.00 mIU/mL Blood Venous blood specimen / Unknown 04/12/2024 8:34 AM EST 04/12/2024 11:45 AM EST Shanon Harris MD LAB BLOOD ORDERABLES Final Resul t Performing Organization Address [facility] Co de Phone Number [facility] [address] [place] [phone] * Hepatitis B Core Antibody, Total (04/12/2024 8:34 AM EST) Hepatitis B Core Antibody Nonreactive Nonreactive [facility] Blood Venous blood specimen / Unknown 04/12/2024 8:34 AM EST 04/12/2024 11:45 AM EST us Shanon Harris MD LAB BLOOD ORDERABLES Final Resul t Performing Organization Address [facility] Co de Phone Number [facility] [address] [place] [address] [phone] * Hepatitis A Antibody, Total (04/12/2024 8:34 AM EST) Hepatitis A Antibody IgG REACTIVE Nonreactive [facility] Comment:The presence of IgG anti-HAV implies past HAV infection(recent or distant) or vaccination against HAV. Blood Venous blood specimen / Unknown 04/12/2024 8:34 AM EST 04/12/2024 11:45 AM EST us Shanon Harris MD LAB BLOOD ORDERABLES Final Resul t Performing Organization Address [facility] Phone Number [facility] [address] [place] [phone] documented in this encounter Visit Diagnoses Diagnosis Transaminitis- Primary Nonspecific elevation of levels of transaminase or lactic acid dehydrogenase (LDH) documented in this encounter Additional Health Concerns Assessment Noted Time PHQ-9 Depression Total Score: 5 10/26/19 24 1:59 PM EDT documented as of this encounter Care Teams Credit Collections Manager Relationship Specialty Start Date End Date Shanon Harris MD [address] [place] [phone] PCP - General Family Medicine 03/22/18 documented as of this encounter
--- OUTSIDE RECORDS SUMMARY | 2024-06-30 12:33 | XMS_ITS | Encounter Summary ---
Author Organization [employer] Address [address] [facility] 7[address] [place] [address] Care Team Providers Care Facilities Maintenance Worker Name Role Phone Shanon Harris MD Primary Care Provider [phone] Reason for Visit * Reason Comments Med Refill Encounter Details Date Type Department Care Team ([facility] Contact Info) Description 04/14/2022 Refill [facility] [address] [place], [place] [phone] Shanon Harris MD [address] [place], [place] [phone] Social History Tobacco Use Types Packs/Day Years [...] Upcoming Encounters Date Type Department Care Team ([facility] Contact Info) Description 07/25/2024 1:30 PM EDT Office Visit [facility] [address] [place], [place] [phone] Shanon Harris MD [address] [place], [place] [phone] documented as of this encounter Visit Diagnoses Not on filedocumented in this encounter Additional Health Concerns Assessment Noted Time PHQ-9 Depression Total Score: 0 04/08/19 23 11:25 AM EST documented as of this encounter Care Teams Facilities Maintenance Worker Relationship Specialty Start Date End Date Shanon Harris MD [address] [place] [address] PCP - General Family Medicine 03/22/18 documented as of this encounter
--- OUTSIDE RECORDS SUMMARY | 2024-06-30 12:33 | XMS_ITS | Encounter Summary ---
Author Organization [employer] Address [address] [facility] 7t [place] [address] Care Team Providers Care Warehouse Trainer Name Role Phone Shanon Harris MD Primary Care Provider [phone] Reason for Visit * Reason Onset Date Comments requesting a call 10/12/2022 Encounter Details Date Type Department Care Team ([facility] st Contact Info) Description 10/12/2022 Telephone [facility] [address] [place] [address] Shanon Harris MD [address] [place] [address] requesting a call Social History Tobacco Use [...] Vonda Jay - 10/12/2022 4:01 PM EDT Tc jaqueline nelson with VARSHA hernandez requesting to speak with PCP. Please contact VARSHA hernandez at [phone] documented in this encounter Plan of Treatment Upcoming Encounters Date Type Department Care Team (Late st Contact Info) Description 07/25/2024 1:30 PM EDT Office Visit [facility] [address] [place] [phone] Shanon Harris MD [address] [place] [phone] documented as of this encounter Visit Diagnoses Not on filedocumented in this encounter Additional Health Concerns Assessment Noted Time PHQ-9 Depression Total Score: 0 04/08/19 23 11:25 AM EST documented as of this encounter Care Teams Warehouse Trainer Relationship Specialty Start Date End Date Shanon Harris MD [address] [place] [phone] PCP - General Family Medicine 03/22/18 documented as of this encounter
--- OUTSIDE RECORDS SUMMARY | 2024-06-30 12:33 | XMS_ITS | Clinical Summary ---
Author Organization [facility] Address [address] [place] [address] Phone Care Team Providers Care Clinical Training Coordinator Name Role Phone Physician, Pcp Unknown Primary Care Provider Dorothy vailable Encounters Date Type Department Care Team Description 04/03/2024 2:04 PM EST - 04/03/2024 11:59 PM EST Hospital Encounter [facility] MRI [address] [place] [address] Angiomyolipoma Discharge Disposition: Home or Self Care from Last 3 Months Social History Tobacco Use Types Packs/Day Years Used Date Smoking Tobacco: Never Assessed Comments Unknown Sex and Gender Information Value Date Recorded Sex Assigned at Not on file Legal Sex Female 6:18 PM EST Gender Identity Not on file [...] Vaccines (1 of 2) 07/03/2019 Pneumococcal Vaccine: 50+ Years (2 of 2 - PCV) 01/31/2021 02/01/2020 Pneumococcal Vaccine: Pediatrics (0 to 5 Years) and At-Risk Patients (6 to 64 Years) (2 of 2 - PCV) 01/31/2021 02/01/2020 Cholesterol Screening (Lipid Panel) 05/28/2023 Hepatitis C Screening 05/28/2023 Social Influencers of Health Screening 05/28/2023 COVID-19 Vaccine (1 - 2023-2 5 season) 2023 Diabetes: Annual Urine Albumin-Creatinine Ratio (uACR) 04/03/2024 Diabetes: Blood Sugar Contro l Test (HGBA1C) 04/27/2024 10/26/2023 Depression Screening 10/25/2024 10/26/2023 Influenza Vaccine (Season Ended) 2024 02/01/2020, 05/23/2018 Diabetes: Annual GFR (Glomerular Filtration Rate) 03/27/2025 [...] patient's age to complete this topic Meningococcal B Vaccine Aged Out No l onger eligible based on patient's age to complete [...] Signed Date: 04/06/2024 14:11 ET Workstation ID: [id number] Transcribed By: Self Edit Transcribed Date: 04/06/2024 [...] Signed Date: 04/06/2024 14:11 ET Workstation ID: [id number] Transcribed By: Self Edit Transcribed Date: 04/06/2024 12:39 ET Cedric Fuentes MD IMG MRI PROCEDURES Final R esult from Last 3 Months Insurance MEDICAID - [place] Care Teams Clinical Training Coordinator Relationship Specialty Start Date End Date Physician, Pcp Unknown PCP - General 04/03/24
--- OUTSIDE RECORDS SUMMARY | 2024-06-30 12:33 | XMS_ITS | Clinical Summary ---
Author Organization [employer] Address [address] [place] [address] [address] [place] [address] Care Team Providers Care Shoe Shiner Name Role Phone Shanon Harris MD Primary Care Provider [phone] Allergies Active Allergy Reactions Criticality Noted Date Comments Aspirin 03/04/2016 Other reaction(s): rash Clindamycin Unknown 08/18/2012 Penicillins 08/18/2012 Other reaction(s): Other (see comments) Medications liver oil-zinc oxide (Desitin) 40 % ointment Apply a small amount of cream to itchy, irritated skin outside the vagina 3x a day 0 Active polyethylene glycol, PEG, 3350 (Miralax) 17 g packet TAKE 17 GRAMS BY MOUTH TWICE DAILY 2 Active metFORMIN (Glucophage) 500 MG tablet TAKE 1 TABLET BY MOUTH TWICE A DAY WITH MORNING AND EVENING MEALS 2 Active lactulose (Chronulac) 10 GM/15ML solution TAKE 15 ML BY MOUTH DAILY NEEDED FOR LAXATIVE EFFECT 2 Active hydrocortisone (Anusol-HC) 2.5 % rectal cream Apply topically every 12 (twelve) hours. 0 Active fluticasone (Flonase) 50 MCG/ACT nasal spray spray 1 spray by intranasal route every day in each nostril 2 Active EPINEPHrine (EpiPen 2-Toby) 0.3 MG/0.3ML injection syringe Inject 0.3 mL into the shoulder, thigh, or buttocks. 9 Active docusate sodium (Colace) 100 MG capsule Take 100 mg by mouth 2 times daily. 2 Active montelukast (Singulair) 10 MG tablet Take 10 mg by mouth at bedtime. 3 Active loratadine (Claritin) 10 MG tabletIndications :Allergic rhinitis, unspecified seasonality, unspecified trigger TAKE 1 TABLET BY MOUTH EVERY DAY 90 tablet 1 3 Active COVID-19 Antigen Test kit Check as instructed 1 kit 4 Active Blood Pressure Monitor misc Check BP daily 1 each 4 Active albuterol 108 (90 Base) MCG/ACT inhaler Inhale 2 puffs every 4 (four) hours if needed for wheezing or shortness of breath. 18 g 1 5 Active Advair HFA 45-21 MCG/ACT inhaler Inhale 2 puffs 2 times daily. 12 g 11 5 Active Blood Glucose Monitoring Suppl (FreeStyle Lite) w/Device kit 1 kit before breakfast. 1 kit 5 Active FreeStyle lancets 1 each by Other route Once per day. Check blood glucose 100 each 3 5 Active Alcohol Swabs (Alcohol Prep) 70 % pads Check Blood sugar once daily 100 each 11 5 Active FREESTYLE LITE test strip Check blood sugar once daily 100 each 3 5 Active amLODIPine (Norvasc) 2.5 MG tabletIndications :Essential hypertension TAKE 1 TABLET BY MOUTH EVERY DAY IN THE MORNING DO NOT USE IF SYSTOLIC BLOOD PRESSURE LESS THAN 110 90 tablet 1 5 Active Active Problems Problem Noted Date Diagnosed [...] O2 sat 95% - Last CXR in 2018 showed diffuse prominence of the background interstitium. This finding is nonspecific but may reflect an element of small airway disease. No consolidation - refer to shop manager for further evaluation Diabetes mellitus, type 2 [...] on 04/21/21 -Comprehensive eye exam: 03/11/20 at [facility] eye care, no diabetic retinopathy -Foot [...] on 04/21/21 -Comprehensive eye exam: 03/11/20 at [facility] eye care, no diabetic retinopathy -Foot [...] on 04/21/21 -Comprehensive eye exam: 03/11/20 at [facility] eye care, no diabetic retinopathy -Foot [...] on 04/21/21 -Comprehensive eye exam: 03/11/20 at [facility] eye care, no diabetic retinopathy -Foot [...] on 04/21/21 -Comprehensive eye exam: 03/11/20 at [facility] eye care, no diabetic retinopathy -Foot [...] on 04/21/21 -Comprehensive eye exam: 03/11/20 at [facility] eye care, no diabetic retinopathy -Foot [...] on 04/21/21 -Comprehensive eye exam: 03/11/20 at [facility] eye care, no diabetic retinopathy -Foot [...] 2:06 PM EDT): -s/p Embolization of angiomyolipoma 06/04/[address] 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 - most recent MRI on 03/16/23 showed 3.3 cm angiolipoma in the upper pole of right kidney, slightly exophytic, smaller in size. There is another stable small angiolipoma in the lower pole of right kidney. Assessment & Plan (07/22/2023 10:54 AM EDT): -s/p Embolization of angiomyolipoma [address] 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 - most recent MRI on 03/16/23 showed 3.3 cm angiolipoma in the upper pole of right kidney, slightly exophytic, smaller in size. There is another stable small angiolipoma in the lower pole of right kidney. Assessment & Plan (03/28/2023 9:47 AM EST): -s/p Embolization of angiomyolipoma [address] 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 - most recent MRI on 03/16/23 showed 3.3 cm angiolipoma in the upper pole of right kidney, slightly exophytic, smaller in size. There is another stable small angiolipoma in the lower pole of right kidney. Assessment & Plan (12/17/2022 12:43 PM EDT): -s/p Embolization of angiomyolipoma [address] 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 Assessment & Plan (08/11/2022 12:03 PM EDT): -s/p Embolization of angiomyolipoma [address] Fuentes -seen by computational sciences professor on 07/17/21. -pt is recommended to have MRI -f/u with Dr. Fuentes, next appt TBD Assessment & Plan (04/08/2022 6:24 AM EST): -s/p Embolization of angiomyolipoma 06/04/[address] Fuentes -seen by computational sciences professor on 07/17/21. -pt is recommended to have [...] flonase and loratadine - prescribed montelukast by shop manager, but has not picked up yet Assessment & Plan (04/08/2022 6:26 AM EST): - continue flonase and loratadine Asthma 12/18/2014 Assessment & Plan (03/27/2024 1:54 PM EST): - Following with [facility] Yard Operator, last seen on 08/28/22. Next appointment in Apr 2023 - Treatment Hx: Flovent Changed to Advair HFA + Singulair added in May 2022 - Continue Advair HFA and montelukast - Advised to get her lab done so that shop manager can assess if pt will benefit from biologic Tx. - follow-up with Yard Operator as scheduled - follow-up with PCP in 4-6 mo Assessment & Plan (10/26/2023 2:05 PM EDT): - Following with [facility] Yard Operator, last seen on 08/28/22. Next appointment in Apr 2023 - Treatment Hx: Flovent Changed to Advair HFA + Singulair added in May 2022 - Continue Advair HFA and montelukast - Advised to get her lab done so that shop manager can assess if pt will benefit from biologic Tx. - follow-up with Yard Operator as scheduled - follow-up with PCP in 4-6 mo Assessment & Plan (07/22/2023 10:53 AM EDT): - Following with [facility] Yard Operator, last seen on 08/28/22. Next appointment in Apr 2023 - Treatment Hx: Flovent Changed to Advair HFA + Singulair added in May 2022 - Continue Advair HFA and montelukast - Advised to get her lab done so that shop manager can assess if pt will benefit from biologic Tx. - follow-up with Yard Operator as scheduled - follow-up with PCP in 4-6 mo Assessment & Plan (03/28/2023 9:45 AM EST): - Following with [facility] Yard Operator, last seen on 08/28/22. Next appointment in Apr 2023 - Treatment Hx: Flovent Changed to Advair HFA + Singulair added in May 2022 - Continue Advair HFA and montelukast - Advised to get her lab done so that shop manager can assess if pt will benefit from biologic Tx. - follow-up with Yard Operator as scheduled - follow-up with PCP in 4-6 mo Assessment & Plan (12/18/2022 9:59 AM EDT): - Following with [facility] Yard Operator, last seen on 08/28/22 - Treatment Hx: Flovent Changed to Advair HFA + Singulair added in May 2022 - Continue Advair HFA and montelukast - Advised to get her lab done so that shop manager can assess if pt will benefit from biologic Tx. - follow-up with Yard Operator as scheduled - follow-up with PCP in 4-6 mo Assessment & Plan (08/20/2022 11:05 AM EDT): Seen by Yard Operator on 06/09/22 -Flovent Changed to Advair HFA + Singulair added -she hasn't picked up ADVAIR or singulair -advised to check with pharmacy about new medication -follow-up with Yard Operator as scheduled -follow-up with PCP in 4-6 [...] engage in counseling. 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 Chronic back pain 08/18/2012 Medullary sponge kidney 08/18/2012 Assessment & Plan (03/27/2024 1:55 PM EST): - following with computational sciences professor Assessment & Plan (10/26/2023 2:06 PM EDT): - following with computational sciences professor Assessment & Plan (07/22/2023 10:54 AM EDT): - following with computational sciences professor Assessment & Plan (03/28/2023 9:46 AM EST): - following with computational sciences professor Vitamin D deficiency 08/18/2012 Resolved Problems Problem Noted Date Diagnosed Date Resolved Date Impaired fasting glucose 02/22/2018 Hepatitis C antibody test positive 08/18/2012 03/26/2024 Overview (03/26/2024): - reactive in 2008, negative in 2019 Encounters Date Type Department Care Team Description 06/02/2024 Population Health Risk Score [facility] ([facility]) Department [address] [place] [address] Provider, Population Health Generic 04/04/2024 Telephone [facility] ADULT DENTAL [address] [place] [address] Marco Antonio Morales DDS from Last 3 Months Immunizations Name Administration [...] 10/26/2023 1:57 PM EDT Plan of Treatment Upcoming Encounters Date Type Department Care Team (Late st Contact Info) Description 07/25/2024 1:30 PM EDT Office Visit [facility] MEDICINE [address] [place] [address] Shanon Harris MD [address] [place] [address] Health Maintenance Due Date Last Done Comments [...] Prophylaxis 10/09/2023 04/09/2023, 10/21/2018 COVID-19 Vaccine ( - season) 2023 Influenza Vaccine (#1) 2023 02/01/2020, 2018 Dental X-Ray: Bitewings 04/10/2024 04/09/2023, 04/13 Diabetes: Hemoglobin A1C 04/27/2024 024, 07/22/2023, 12/17/2022, Additional history exists Eye Exam 06/29/2024 06/29/2022, 06/20, 06/29/2022, Additional history exists SDOH Screening 07/13/2024 07/14/2023 Diabetes: Foot Exam 07/21/2024 07/22/2023, 07/22/2023, 07/22/2023, Additional history exists Depression Screening 10/25/2024 10/26/2023, 10/26/19 Diabetes: Urine Protein Screening 03/27/2025 03/27/2024, 06/16/2023, 08/11/2022, Additional history exists Lipid Panel 03/27/2025 03/27/2024, [...] Completed 04/22/2021, 01/23/2020 Hepatitis C Screening Completed 04/12/2024 , 04/22/2021, 01/23/2020 HIB Vaccines Aged Out No longer eligi [...] DIFFERENTIAL Routine 04/12/2024 8:43 AM EST Transaminitis PROTHROMBIN TIME-INR Routine 04/12/2024 8:34 AM EST Transaminitis HEPATITIS C AB W/REFL TO HCV RNA, QN, PCR Routine 04/12/2024 8:34 AM EST Transaminitis HEPATITIS B SURFACE ANTIGEN, EIA Routine 04/12/2024 8:34 AM EST Transaminitis HEPATITIS B SURFACE ANTIBODY, QUALITATIVE Routine 04/12/2024 8:34 AM EST Transaminitis HEPATITIS B CORE AB TOTAL Routine 04/12/2024 8:34 AM EST Transaminitis HEPATITIS A ANTIBODY, TOTAL Routine 04/12/2024 8:34 AM EST Transaminitis ALBUMIN, RANDOM URINE W/CREATININE Routine 03/27/2024 2:15 PM EST Type 2 diabetes mellitus without complication, without long-term current use of insulin (CMS/HCC) LIPID PANEL WITH REFLEX TO DIRECT LDL Routine 03/27/2024 2:15 PM EST Type 2 diabetes mellitus without complication, without long-term current use of insulin (CMS/HCC) POCT GLYCOSYLATED HEMOGLOBIN (HGB A1C) Routine 10/26/2023 1:54 PM EDT Type 2 diabetes mellitus without complication, without long-term current use of insulin ([facility]/HCC) LAB COLOGUARD?? COLON CANCER SCREEN Routine 08/12/2023 5:03 PM EDT Colon cancer screening BI MAMMOGRAM SCREENING TOMOSYNTHESIS BILATERAL Routine 07/31/2023 10:10 AM EDT PROPHYLAXIS - ADULT Routine 04/09/2023 1 :00 PM EST Dental calculus INTRAORAL - COMPLETE SERIES OF RADIOGRAPHIC IMAGES Routine 04/09/2023 1:00 PM EST Dental caries Dental calculus PERIODIC ORAL EVALUATION - ESTABLISHED PATIENT Routine 04/09/2023 1:00 PM EST HIV 1/2 ANTIGEN/ANTIBODY, FOURTH GENERATION W/RFL Routine 04/22/2021 8:19 AM EST HM PAP/HPV Routine 07/31/2020 from Last 3 Months or Most Recently Relevant to Health Maintenance Results * US Abdomen Comp w elastography (04/19/2024 9:04 AM EST) Anatomical Region Laterality Modality Abdomen Ultrasound 04/19/2024 9:04 AM EST Narrative 04/19/2024 1:42 PM EST ? [facility] ?[address] ?[place] [address] ? Ultrasound Report ? Signed ? Patient: Manjit,Mari ?MR#: [id number] ?? 97 ? : 1970 ?Acct:[id number] ? Age/Sex: 53 / F ?ADM Date: 01/29/25 ? Loc: HO.US ? Attending Dr: Shanon Harris MD ? Ordering Physician: Shanon Harris MD ?? Date of Service: 04/19/24 ?? Procedure(s): US abdomen comp w elastography ?? Accession Number(s): [id number] ? cc: Shanon Harris MD ? EXAMINATION: [...] Lee MD in OV> ?04/19/24 1339 ? DD/ 0904 ? TD/TT: 04/19/24 0924 ? Doping Supervisor: ? Procedure Note Donotjohninterpreter, Image - 04/19/2024 [place] [id number] Ultrasound Report Signed Patient: Alisha Saravia#: [id number] 97 : 1970Acct:[id number] Age/Sex: 53 / FADM Date: 04/19/24 Loc: HO.US Attending Dr: Shanon Harris MD Ordering Physician: Shanon Harris MD Date of Service: 04/19/24 Procedure(s): US abdomen comp w elastography Accession Number(s): [id number] cc: Shanon Harris MD EXAMINATION: US ABDOMEN [...] of Radiologists in Ultrasound Liver Stiffness Thresholds (2020): LIVER STIFFNESS THRESHOLDS: *Shear wave velocity less [...] by: John Lee MD 04/19/2024 01:39 PM EST Dictated By: John Lee MD Signed By: <Electronically signed by John Lee MD in OV> 04/19/24 1339 DD/ TD/TT: 04/19/24923 Doping Supervisor: us Shanon Harris MD [facility] US PROCEDURES Edited Result - Final * (ABNORMAL) CBC auto differential (04/12/2024 8:43 AM EST) White Blood Count 4.7(L) 4.8 - 10.8 X10*3/uL [facility] Red Blood Count 5.38 4.20 - 5.50 X10*6/uL [facility] Hemoglobin 14.6 12.0 - 16.0 g/dl [facility] Hematocrit 45.9 37.0 - 47.0 % [facility] Mean Corpuscular Volume 85.3 80.0 - 98.0 fL [facility] Mean Corpuscular Hemoglobin 27.1 27.0 - 33.0 pg [facility] Mean Corpuscular HGB Conc 31.8 31.0 - 35.0 g/dl [facility] Red Cell Distribution Width 13.1 11.0 - 16.0 % [facility] Platelet Count 313 160 - 400 X10*3/uL [facility] Mean Platelet Volume 9.5 9.4 - 12.3 fL [facility] Neutrophils Percent Auto 57.3 45 - 73 % [facility] Imm Gran Pct Auto 0.2 0.0 - 0.4 % [facility] Lymphocytes Percent Auto 28.1 20 - 40 % [facility] Monocytes Percent Auto 13.1(H) 2 - 11 % [facility] Eosinophils Percent Auto 1.1 0 - 4 % [facility] Basophils Percent Auto 0.2 0 - 2 % [facility] NRBC Pct Auto 0.0 0.0 - 0.2 /100WBC [facility] Neutrophils Absolute Auto 2.7 2.0 - 8.3 x10*3/uL [facility] Imm Gran Abs Auto 0.01 0.00 - 0.03 X10*3/uL [facility] Lymphocytes Absolute Auto 1.3 1.2 - 4.9 X10*3/uL [facility] Monocytes Absolute Auto 0.6 0.1 - 1.2 X10*3/uL [facility] Eosinophils Absolute Auto 0.1 0.0 - 0.4 X10*3/uL [facility] Basophils Absolute Auto 0.0 0.0 - 0.2 X10*3/uL [facility] NRBC Abs Auto 0.000 0.0 - 0.012 X10*3/uL [facility] Blood Venous blood specimen / Unknown 04/12/2024 8:43 AM EST 04/12/2024 11:45 AM EST Shanon Harris MD LAB BLOOD ORDERABLES Final Resul t Performing Organization Address City/[facility]/ZIP Co de Phone Number [facility] [address] [place] [phone] * Hepatitis C Antibody with Reflex to HCV, RNA, Quantitative, Real-Time PCR (04/12/2024 8:34 AM EST) Hepatitis C Antibody Nonreactive Nonreactive [facility] Comment:Antibodies to HCV no t detected; does not exclude early acuteHCV infection. Blood Venous blood specimen / Unknown 04/12/2024 8:34 AM EST 04/12/2024 11:45 AM EST Shanon Harris MD LAB BLOOD ORDERABLES Final Resul t Performing Organization Address City/[facility]/ZIP Co de Phone Number [facility] [address] [place] [phone] * Hepatitis A Antibody, Total (04/12/2024 8:34 AM EST) Hepatitis A Antibody IgG REACTIVE Nonreactive [facility] Comment:The presence of IgG anti-HAV implies past HAV infection(recent or distant) or vaccination against HAV. Blood Venous blood specimen / Unknown 04/12/2024 8:34 AM EST 04/12/2024 11:45 AM EST us Shanon Harris MD LAB BLOOD ORDERABLES Final Resul t Performing Organization Address City/[facility] Co de Phone Number [facility] [address] [place] [phone] * Hepatitis B surface antigen, EIA (04/12/2024 8:34 AM EST) Hepatitis B Surface Ag Negative Negative [facility] Blood Venous blood specimen / Unknown 04/12/2024 8:34 AM EST 04/12/2024 11:45 AM EST us Shanon Harris MD LAB BLOOD ORDERABLES Final Resul t Performing Organization Address [facility] Co de Phone Number [facility] [address] [place] [phone] * Hepatitis B Core Antibody, Total (04/12/2024 8:34 AM EST) Hepatitis B Core Antibody Nonreactive Nonreactive [facility] Blood Venous blood specimen / Unknown 04/12/2024 8:34 AM EST 04/12/2024 11:45 AM EST us Shanon Harris MD LAB BLOOD ORDERABLES Final Resul t Performing Organization Address [facility] Phone Number [facility] [address] [place] [phone] * Hepatitis B Surface Antibody, Qualitative (04/12/2024 8:34 AM EST) ~Hepatitis B Surface Antibody NONREACTIVE Nonreactive [facility] Comment:Nonreactive: < 8.00 mIU/mL Blood Venous blood specimen / Unknown 04/12/2024 8:34 AM EST 04/12/2024 11:45 AM EST Shanon Harris MD LAB BLOOD ORDERABLES Final Resul t Performing Organization Address [facility] de Phone Number [facility] [address] [place] [phone] * Prothrombin Time-INR (04/12/2024 8:34 AM EST) Prothrombin Time 12.0 10.9 - 12.4 SEC [facility] INTERNATIONAL NORM RATIO 1.0 0.9 - 1.1 [facility] Comment:INTERNATIONAL NORMAL IZED RATIO (INR) REFERENCE [...] ORDERABLES Final Resul t Performing Organization Address [facility] Co de Phone Number [facility] [address] [place] [phone] * Lipid Panel with Reflex to Direct LDL (03/27/2024 2:15 PM EST) Triglycerides 88 <150 mg/dL [facility] Comment:Desirable Triglyceri de: less than 150 mg/dLBorderline High Triglyceride 150-199 mg/dLHigh Triglyceride: 200-499 mg/dLVery High Triglyceride: greater than or equal to 5OO mg/dL Cholesterol 146 <200 mg/dL [facility] Comment:Desirable Cholestero l: less than 200 mg/dLBorderline High Cholesterol: 200-239 mg/dLHigh Cholesterol: greater than 239 mg/dL LDL Cholesterol Calculated 86 <100 mg/dL [facility] Comment:Desirable LDL: less than 100 mg/dLNear Optimal/Above Optimal LDL: 110- 129 mg/dLBorderline High LDL: 130-159 mg/dLHigh LDL: 160-189 mg/dLVery High LDL: greater than or equal to 190 mg/dL HDL Cholesterol 43 >40 mg/dL [facility] Comment:Desirable HDL: great er than 40 mg/dL Note: This HDL assay may give artificially low results in patients with liver disease. Blood 03/27/2024 2:15 PM EST 03/27/2024 4:19 PM EST Shanon Harris MD LAB BLOOD ORDERABLES Final Resul t Performing Organization Address [facility] Co de Phone Number [facility] [address] [place] [phone] * Albumin, Random Urine W/Creatinine (03/27/2024 2:15 PM EST) Creatinine, Urine 18.25 mg/dL [facility] Microalbumin Urine <5.0 mg/L [facility] Microalbum Creatinine Ratio Ur TNP <30 ug/mg cr [facility] Comment:Unable to calculate albumin/creatinine ratio due to lowmicroalbumin or creatinine result. Urine 03/27/2024 2:15 PM EST 03/27/2024 4:12 PM EST us Shanon Harris MD LAB URINE ORDERABLES Final Resul t Performing Organization Address [facility] Co de Phone Number [facility] [address] [place] [phone] * POCT glycosylated hemoglobin (Hgb A1c) (10/26/2023 1:54 PM EDT) Hemoglobin A1C 6.0 4.0 - 6.0 % QC Media Lot # [id number] Lot# Expiration Date [id number] Blood Capillary blood specimen / Unknown 10/26/2023 1:54 PM EDT Shanon Harris MD POINT OF CARE TEST ENTER/EDIT OR DERABLES Final Result * Cologuard?? colon cancer screening (08/12/2023 5:03 PM EDT) Cologuard Result Negative Negative 08/20/19 2:18 AM EDT Normal (CLIA #:[id number]) Comment: NEGATIVE TEST RESULT. A negative Cologuard [...] cancer. ??Following a negative Cologuard result, the [place] [employer] and U.S. Multi-Society Task Force screening guidelines recommend a Cologuard re-screening interval of 3 years. References: [place] [employer] Guideline for Colorectal Cancer Screening: https://www.cancer.org/cancer/ulkjf-ahttib-ffirqi/aowkpunxz-ofljdlkfp-wdjjdzv/ac s-rec ommendations.html.; Jerrod DIAZ, Tavon KIRKPATRICK, Guadalupe CHRISTIE, Colorectal Cancer Screening: Recommendations for Physicians and Patients from the U.S. Multi-Society Task Force on Colorectal Cancer Screening , Am J Gastroenterology 2017; 112:0357-8842. TEST DESCRIPTION: Composite algorithmic analysis of stool [...] screened with both Cologuard and colonoscopy. (Eliazar Sotelo et al, N Engl J Med 2014;370(14):2606-2007.) Cologuard may produce a false negative or false positive result (no colorectal cancer or precancerous polyp present at colonoscopy follow up). A negative Cologuard test result does not guarantee the absence of CRC or advanced adenoma (pre-cancer). The current Cologuard screening interval is every 3 years. ([place] [employer] and U.S. Multi-Society Task Force). Cologuard performance data in a 10,000 patient pivotal study using colonoscopy as the reference method can be accessed at the following location: www.[facility].[employer]/results. Additional description of the Cologuard test process, warnings and precautions can be found at www.[employer].com. Stool specimen (specimen) 08/12/2023 5:03 PM EDT 08/14/2023 10:50 AM EDT us Shanon Harris MD LAB MOLECULAR DIAGNOSTICS ORDERA BLES Final Result Normal (CLIA #:[id number]) [address] [place] [address], * BI Mammogram Screening Tomosynthesis Bilateral (07/31/2023 10:10 AM EDT) Anatomical Region Laterality Modality Breast Bilateral Mammography 07/31/2023 10:1 0 AM EDT Narrative 08/22/2023 7:52 PM EDT ? [facility] ? [address] ?[place] [address] ? Mammography Report ? Signed with Addenda ? Patient: Manjit,Mari ?MR#: [id number] ?? 97 ? : 1970 ?Acct:[id number] ? Age/Sex: 53 / F ?ADM Date: 07/31/23 ? Loc: HO.MAMMO ? Attending Dr: Shanon Harris MD ? Ordering Physician: Shanon Harris MD ?Results: 0Incomple ?? te: Needs Additional Imaging Evaluation ? Date of Service: 07/31/23 ?Follow Up: Additional Imagi ?? ng ? Procedure(s): MM tomosynthesis screening BI ?? Accession Number(s): [id number] ? cc: Shanon Harris MD ?ADDENDUM ?? ADDENDUM: ? OVERALL ASSESSMENT: ?? BI-RADS 0 - Incomplete: Needs additional Imaging. ? RECOMMENDATION: ?? Additional Imaging required ? Addendum Dictated By: ?Yani Nava MD ? Addendum Signed By: ? <Electronically signed by Yani Nava MD in OV> ? 06/03/24 0709 ?? Addendum Cosigned By: ? DD/ /1030 ? TD/TT: / ? EXAMINATION: ?? MM [...] 1950 ? DD/ 1010 ? TD/TT: ? Doping Supervisor: ? Procedure Note Celia Juarez - 08/23/2023 [facility] [address] [place], [place] [address] Mammography Report Signed with Addenda Patient: Alisha Saravia#: [id number] 97 : 1970Acct:[id number] Age/Sex: 53 / FADM Date: 07/31/23 Loc: HO.MAMMO Attending Dr: Shanon Harris MD Ordering Physician: Shanon Harris MDResults: 0Incomple te: Needs Additional Imaging Evaluation Date of Service: 07/31/23Follow Up: Additional Imagi ng Procedure(s): MM tomosynthesis screening BI Accession Number(s): [id number] cc: Shanon Harris MD ADDENDUM ADDENDUM: OVERALL [...] by Yani Nava MD in OV> 08/22/23 194 DD/ 1010 TD/TT: Doping Supervisor: Shanon Harris MD IMG BI PROCEDURES Edited Result - Final * HIV 1/2 ANTIGEN/ANTIBODY,FOURTH GENERATION W/RFL (04/22/2021 8:19 AM EST) HIV-1/2 ANTIGEN AND ANTIBODIES, 4TH GENERATION W/ REFLEX NON-REACT ALEXANDRU NON-REACT ALEXANDRU [facility] Comment: HIV-1 antigen and HIV-1/HIV-2 [...] ? For additional information please refer to http://education.August/faq/TJW162 (This link is being provided for informational/ educational purposes only.) ? The performance of this assay has not been clinically validated in patients less than 2 years old. ?? 04/22/2021 8:19 AM EST Shanon Harris MD LAB BLOOD ORDERABLES Final Resul t [facility] [address] * Hm Pap Smear (07/31/2020) Pap Negative for intraephithelial lesion or malignancy Negative for intraephithelial lesion or malignancy, Other HPV Undetected 07/31/2020 Usman Joshua MD HEALTH MAINTENANCE Final Result from Last 3 Months or Most Recently Relevant to Health Maintenance Insurance [place] [facility] MEDICAID STAND ADULT Care Teams Shoe Shiner Relationship Specialty Start Date End Date Shanon Harris MD [address] [place] [address] PCP - General Family Medicine 03/22/18
== END 2024-06-30 12:29 | disposition home or self-care (01) ==
LOC: HO.HWSM 11:31
PROVIDERS: PCP Family Medicine; Visit Provider Advanced Practice Midwife
DX: Z01.419 Encounter for gynecological examination (general) (routine) without abnormal findings (principal); E28.319 Asymptomatic premature menopause
CPT/HCPCS: 99396; 99459

== ENCOUNTER → 2024-06-30 11:31 | Outpatient (BNVA) | payer MEDICAID, SELFPAY | PROVIDERS: PCP Family Medicine; Visit Provider Advanced Practice Midwife | DX: Z01.419 Encounter for gynecological examination (general) (routine) without abnormal findings (principal); E28.319 Asymptomatic premature menopause | CPT/HCPCS: 99396; 99459 ==

== ENCOUNTER 2024-08-05 10:25 | Outpatient (REF) | payer OTHER, SELFPAY ==
--- OUTSIDE RECORDS SUMMARY | 2024-08-05 10:27 | XMS_ITS | Encounter Summary ---
Author Organization [employer] Address [address] [facility] 7t [place] [address] Care Team Providers Care Arborist Name Role Phone Shanon Harris MD Primary Care Provider [phone] Reason for Referral * Imaging (Routine) - Closed Specialty Diagnoses / Procedures Referred By Nida díaz Referred To Contact Radiology Diagnoses Transaminitis Procedures US Abdomen Comp w elastography Shanon Harris MD [address] [place] [address] Phone: tel: fax: [address] Phone: tel: fax: Referral ID Status Reason Start Date Expiration Date Visits Re quested Visits Authorized [id number] Closed 03/27/2024 03/27/2025 1 0 Encounter Details Date Type Department Care Team (Late st Contact Info) Description 03/27/2024 Orders Only [facility] [address] [place] [phone] Shanon Harris MD [address] [place], [place] [phone] Transaminitis (Primary Dx) Social History Tobacco Use [...] EST Narrative 04/19/2024 1:42 PM EST ? [facility] ?[address] ?[place] [address] ? Ultrasound Report ? Signed ? Patient: Manjit,Mari ?MR#: [id number] ?? 97 ? : 1970 ?Acct:[id number] ? Age/Sex: 53 / F ?ADM Date: 04/19/24 ? Loc: HO.US ? Attending Dr: Shanon Harris MD ? Ordering Physician: Shanon Harris MD ?? Date of Service: 04/19/24 ?? Procedure(s): US abdomen comp w elastography ?? Accession Number(s): [id number] ? cc: Shanon Harris MD ? EXAMINATION: [...] DD/ 0904 ? TD/TT: 04/19/24 0924 ? Ornament Setter: ? Procedure Note Celia Juarez - 04/19/[address] [address] Ultrasound Report Signed Patient: Pako SaraviaVidhi#: [id number] [birth year] : 1970Acct:[id number] Age/Sex: 53 / FADM Date: 04/19/24 Loc: HO.US Attending Dr: Shanon Harris MD Ordering Physician: Shanon Harris MD Date of Service: 04/19/24 Procedure(s): US abdomen comp w elastography Accession Number(s): [id number] cc: Shanon Harris MD EXAMINATION: US ABDOMEN [...] Lee MD in OV> 04/19/24 1339 DD/ 0904 TD/TT: 04/19/24 0924 Ornament Setter: us Shanon Harris MD [facility] US PROCEDURES Edited Result - Final * (ABNORMAL) CBC auto differential (04/12/2024 8:43 AM EST) White Blood Count 4.7(L) 4.8 - 10.8 X10*3/uL [facility] Red Blood Count 5.38 4.20 - 5.50 X10*6/uL [facility] Hemoglobin 14.6 12.0 - 16.0 g/dl [facility] Hematocrit 45.9 37.0 - 47.0 % [facility] Mean Corpuscular Volume 85.3 80.0 - 98.0 fL [facility] Mean Corpuscular Hemoglobin 27.1 27.0 - 33.0 pg [facility] Mean Corpuscular HGB Conc 31.8 31.0 - 35.0 g/dl [facility] Red Cell Distribution Width 13.1 11.0 - 16.0 % [facility] Platelet Count 313 160 - 400 X10*3/uL [facility] Mean Platelet Volume 9.5 9.4 - 12.3 fL [facility] Neutrophils Percent Auto 57.3 45 - 73 % [facility] Imm Gran Pct Auto 0.2 0.0 - 0.4 % [facility] Lymphocytes Percent Auto 28.1 20 - 40 % [facility] Monocytes Percent Auto 13.1(H) 2 - 11 % [facility] Eosinophils Percent Auto 1.1 0 - 4 % [facility] Basophils Percent Auto 0.2 0 - 2 % [facility] NRBC Pct Auto 0.0 0.0 - 0.2 /100WBC [facility] Neutrophils Absolute Auto 2.7 2.0 - 8.3 x10*3/uL [facility] Imm Gran Abs Auto 0.01 0.00 - 0.03 X10*3/uL [facility] Lymphocytes Absolute Auto 1.3 1.2 - 4.9 X10*3/uL [facility] Monocytes Absolute Auto 0.6 0.1 - 1.2 X10*3/uL [facility] Eosinophils Absolute Auto 0.1 0.0 - 0.4 X10*3/uL [facility] Basophils Absolute Auto 0.0 0.0 - 0.2 X10*3/uL [facility] NRBC Abs Auto 0.000 0.0 - 0.012 X10*3/uL [facility] Blood Venous blood specimen / Unknown 04/12/2024 8:43 AM EST 04/12/2024 11:45 AM EST Shanon Harris MD LAB BLOOD ORDERABLES Final Resul t Performing Organization Address [facility] Co de Phone Number [facility] [address] [place] [phone] * Prothrombin Time-INR (04/12/2024 8:34 AM EST) Prothrombin Time 12.0 10.9 - 12.4 SEC [facility] INTERNATIONAL NORM RATIO 1.0 0.9 - 1.1 [facility] Comment:INTERNATIONAL NORMAL IZED RATIO [...] ORDERABLES Final Resul t Performing Organization Address [facility] Co de Phone Number [facility] [address] [place] [phone] * Hepatitis C Antibody with Reflex to HCV, RNA, Quantitative, Real-Time PCR (04/12/2024 8:34 AM EST) Hepatitis C Antibody Nonreactive Nonreactive [facility] Comment:Antibodies to HCV no t detected; does not exclude early acuteHCV infection. Blood Venous blood specimen / Unknown 04/12/2024 8:34 AM EST 04/12/2024 11:45 AM EST us Shanon Harris MD LAB BLOOD ORDERABLES Final Resul t Performing Organization Address [facility] Co de Phone Number [facility] [address] [place] [phone] * Hepatitis B surface antigen, EIA (04/12/2024 8:34 AM EST) Hepatitis B Surface Ag Negative Negative [facility] Blood Venous blood specimen / Unknown 04/12/2024 8:34 AM EST 04/12/2024 11:45 AM EST us Shanon Harris MD LAB BLOOD ORDERABLES Final Resul t Performing Organization Address [facility] Co de Phone Number [facility] [address] [place] [phone] * Hepatitis B Surface Antibody, Qualitative (04/12/2024 8:34 AM EST) ~Hepatitis B Surface Antibody NONREACTIVE Nonreactive [facility] Comment:Nonreactive: < 8.00 mIU/mL Blood Venous blood specimen / Unknown 04/12/2024 8:34 AM EST 04/12/2024 11:45 AM EST us Shanon Harris MD LAB BLOOD ORDERABLES Final Resul t Performing Organization Address [facility] Co de Phone Number [facility] [address] [place] [phone] * Hepatitis B Core Antibody, Total (04/12/2024 8:34 AM EST) Hepatitis B Core Antibody Nonreactive Nonreactive [facility] Blood Venous blood specimen / Unknown 04/12/2024 8:34 AM EST 04/12/2024 11:45 AM EST us Shanon Harris MD LAB BLOOD ORDERABLES Final Resul t Performing Organization Address [facility] Co de Phone Number [facility] [address] [place] [phone] * Hepatitis A Antibody, Total (04/12/2024 8:34 AM EST) Hepatitis A Antibody IgG REACTIVE Nonreactive [facility] Comment:The presence of IgG anti-HAV implies past HAV infection(recent or distant) or vaccination against HAV. Blood Venous blood specimen / Unknown 04/12/2024 8:34 AM EST 04/12/2024 11:45 AM EST us Shanon Harris MD LAB BLOOD ORDERABLES Final Resul t Performing Organization Address [facility] Co de Phone Number [facility] [address] [place] [phone] documented in this encounter Visit Diagnoses Diagnosis Transaminitis- Primary Nonspecific elevation of levels of transaminase or lactic acid dehydrogenase (LDH) documented in this encounter Additional Health Concerns Assessment Noted Time PHQ-9 Depression Total Score: 5 10/26/19 24 1:59 PM EDT documented as of this encounter Care Teams Arborist Relationship Specialty Start Date End Date Shanon Harris MD [address] [place] [phone] PCP - General Family Medicine 03/22/18 documented as of this encounter
--- OUTSIDE RECORDS SUMMARY | 2024-08-05 10:27 | XMS_ITS | Clinical Summary ---
Author Organization [facility] Address [address] [place] [address] Phone Care Team Providers Care Briquetter Operator Name Role Phone Physician, Pcp Unknown Primary Care Provider Dorothy vailable Social History Tobacco Use Types Packs/Day Years [...] Influencers of Health Screening 05/28/2023 COVID-19 Vaccine ( - 2023-2 5 season) 2023 Diabetes: Annual [...] on patient's age to complete this topic Insurance MEDICAID - [place] Care Teams Briquetter Operator Relationship Specialty Start Date End Date Physician, Pcp Unknown PCP - General 04/03/24
--- OUTSIDE RECORDS SUMMARY | 2024-08-05 10:27 | XMS_ITS | Encounter Summary ---
Author Organization [employer] Address [address] [facility] 7t [place] [address] Care Team Providers Care Feed House Supervisor Name Role Phone Shanon Harris MD Primary Care Provider [phone] Reason for Visit * Reason Comments Med Refill Encounter Details Date Type Department Care Team ([facility] st Contact Info) Description 04/14/[address] [facility] [address] [place], [place] [phone] Shanon Harris MD [address] [place] [address] Social History Tobacco Use Types Packs/Day Years [...] documented as of this encounter Care Teams Feed House Supervisor Relationship Specialty Start Date End Date Shanon Harris MD [address] [place] [address] PCP - General Family Medicine 03/22/18 documented as of this encounter
--- OUTSIDE RECORDS SUMMARY | 2024-08-05 10:27 | XMS_ITS | Encounter Summary ---
Author Organization [employer] Address [address] [facility] 7t [place] [address] Care Team Providers Care Knit Tubing Dyer Name Role Phone Shanon Harris MD Primary Care Provider [phone] Reason for Visit * Reason Comments Med Refill Encounter Details Date Type Department Care Team ([facility] st Contact Info) Description 05/09/2022 Refill [facility] [address] [place], [place] [phone] Shanon Harris MD [address] [place], [place] [phone] Social History Tobacco Use Types Packs/Day Years [...] documented as of this encounter Care Teams Knit Tubing Dyer Relationship Specialty Start Date End Date Shanon Harris MD [address] [place], [place] [phone] PCP - General Family Medicine 03/22/18 documented as of this encounter
--- OUTSIDE RECORDS SUMMARY | 2024-08-05 10:27 | XMS_ITS | Encounter Summary ---
Author Organization [employer] Address [address] [facility] 7t [place] [address] Care Team Providers Care Maintenance Shop Clerk Name Role Phone Shanon Harris MD Primary Care Provider [phone] Reason for Visit * Reason Onset Date Comments requesting a call 10/12/2022 Encounter Details Date Type Department Care Team ([facility] st Contact Info) Description 10/12/2022 Telephone [facility] [address] [place], [place] [phone] Shanon Harris MD [address] [place] [address] requesting a call Social History Tobacco Use [...] with PCP. Please contact VARSHA hernandez at [phone] documented in this encounter Plan of Treatment Not on file documented as of this encounter Visit Diagnoses Not on filedocumented in this encounter Additional Health Concerns Assessment Noted Time PHQ-9 Depression Total Score: 0 04/08/19 23 11:25 AM EST documented as of this encounter Care Teams Maintenance Shop Clerk Relationship Specialty Start Date End Date Shanon Harris MD [address] [place] [phone] PCP - General Family Medicine 03/22/18 documented as of this encounter
--- OUTSIDE RECORDS SUMMARY | 2024-08-05 10:27 | XMS_ITS | Clinical Summary ---
Author Organization [employer] Address [address] [facility] [address] [place] [address] Care Team Providers Care Posting Clerk Name Role Phone Shanon Harris MD Primary Care Provider [phone] Allergies Active Allergy Reactions Criticality Noted Date [...] BY MOUTH TWICE DAILY 08/02/19 22 Active lactulose (Chronulac) 10 GM/15ML solution TAKE 15 ML BY MOUTH DAILY NEEDED FOR LAXATIVE EFFECT 05/04/19 22 Active hydrocortisone (Anusol-HC) 2.5 % rectal cream Apply topically every 12 (twelve) hours. 01/04/20 20 Active fluticasone (Flonase) 50 MCG/ACT nasal spray spray 1 spray by intranasal route every day in each nostril 04/21/19 22 Active docusate sodium (Colace) 100 MG capsule Take 100 mg by mouth 2 times daily. 05/04/19 22 Active montelukast (Singulair) 10 MG tablet Take 10 mg by mouth at bedtime. 06/10/19 23 Active loratadine (Claritin) 10 MG tabletIndicatio ns:Allergic [...] 2 puffs 2 times daily. 12 g 03/27/19 25 Active Blood Glucose Monitoring Suppl (FreeStyle Lite) w/Device kit 1 kit before breakfast. 1 kit 03/27/19 25 Active FreeStyle lancets 1 each by Other route Once per day. Check blood glucose 100 each 03/27/19 25 Active Alcohol Swabs (Alcohol Prep) 70 % pads Check Blood sugar once daily 100 each 03/27/19 25 Active FREESTYLE LITE test strip Check blood sugar once daily 100 each 03/27/19 25 Active amLODIPine (Norvasc) 2.5 MG tabletIndicatio ns:Essential hypertension Take 1 tablet (2.5 mg) by mouth Once per day. 90 tablet 3 07/26/19 25 Active metFORMIN XR (Glucophage-XR) 500 MG 24 hr tablet Take 1 tablet (500 mg) by mouth with evening meal. Do not crush, chew, or split. 90 tablet 3 07/26/19 25 026 Active EPINEPHrine (EpiPen 2-Toby) 0.3 MG/0.3ML injection syringe Inject 0.3 mL (0.3 mg) as directed 1 (one) time for 1 dose. 1 each 07/26/19 25 Active metFORMIN (Glucophage) 500 MG tablet TAKE 1 TABLET BY MOUTH TWICE A DAY WITH MORNING AND EVENING MEALS 05/02/19 025 Discontinued(M ed list cleanup (will not trigger notification to Pharmacy)) EPINEPHrine (EpiPen 2-Toby) 0.3 MG/0.3ML injection syringe Inject 0.3 mL into the shoulder, thigh, or buttocks. 05/24/19 025 Discontinued(R eorder (will not trigger notification to Pharmacy)) amLODIPine (Norvasc) 2.5 MG tabletIndicatio ns:Essential hypertension TAKE 1 TABLET BY MOUTH EVERY DAY IN THE MORNING DO NOT USE IF SYSTOLIC BLOOD PRESSURE LESS THAN 110 90 tablet 1 03/31/19 25 025 Discontinued(R eorder (will not trigger notification to Pharmacy)) metFORMIN XR (Glucophage-XR) 500 MG 24 hr tablet Take 1 tablet (500 mg) by mouth with evening meal. Do not crush, chew, or split. 30 tablet 11 07/26/19 25 025 Discontinued(R eorder (will not trigger notification to Pharmacy)) Active Problems Problem Noted Date Diagnosed Date [...] airway disease. No consolidation - refer to automobile taillight assembler for further evaluation Diabetes mellitus, type 2 04/08/2022 Assessment & Plan (07/25/2024 2:35 PM EDT): Dx type 2 DM on January 15, 2020 by RGB > 500 -A1C > 14% on 01/23/20 -A1C 6.0% on 10/26/23 -A1C 6.6% on 03/27/24 -A1c 7.0% on 07/25/24 -Currently managing with lifestyle modifications -Treatment Hx: Metformin 1 g bid after Dx; tapered down as she improved her diet, and completely discontinued metformin on 04/21/21 -Restart Metformin XR 500 mg once daily. Continue working on lifestyle modifications. -Comprehensive eye exam: 03/11/20 at [facility] eye care, no diabetic retinopathy -Foot exam 07/22/23 -Last Lipid profile 03/27/24, She does not want to start statin -Last microalbuminuria test on 03/27/24, no microalbuminuria -Follow-up in 4-6 months or sooner prn Assessment & Plan (04/02/2024 10:52 AM EST): Dx type 2 DM on January 15, 2020 by RGB > 500 -A1C > 14% on 01/23/20 -A1C 6.0% on 10/26/23 -A1C 6.6% on 03/27/24 -Currently managing with lifestyle modifications -Treatment Hx: Metformin 1 g bid after Dx; tapered down as she improved her diet, and completely discontinued metformin on 04/21/21 -Comprehensive eye exam: 03/11/20 at [facility] eye care, no diabetic retinopathy -Foot [...] on 04/21/21 -Comprehensive eye exam: 03/11/20 at [facility] eye care, no diabetic retinopathy -Foot [...] on 04/21/21 -Comprehensive eye exam: 03/11/20 at [facility] eye care, no diabetic retinopathy -Foot [...] on 04/21/21 -Comprehensive eye exam: 03/11/20 at [facility] eye care, no diabetic retinopathy -Foot [...] on 04/21/21 -Comprehensive eye exam: 03/11/20 at [facility] eye care, no diabetic retinopathy -Foot [...] on 04/21/21 -Comprehensive eye exam: 03/11/20 at [facility] eye care, no diabetic retinopathy -Foot [...] on 04/21/21 -Comprehensive eye exam: 03/11/20 at [facility] eye care, no diabetic retinopathy -Foot exam 04/07/22 -Last Lipid profile 04/22/21 TC 137; TG 48; HDL 44; LDL 79 --She does not want to start statin -Last microalbuminuria test on 04/22/21 UACR 13 --Follow-up in 4 months Angiomyolipoma of kidney 08/19/2017 Assessment & Plan (07/25/2024 2:33 PM EDT): -s/p Embolization of angiomyolipoma 06/04/[address] 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 - most recent MRI on 03/16/23 showed 3.3 cm angiolipoma in the upper pole of right kidney, slightly exophytic, smaller in size. There is another stable small angiolipoma in the lower pole of right kidney. - Last seen by Dr. Fuentes in March 2024. Pt is doing well, next MRI in two years Assessment & Plan (03/27/2024 1:55 PM EST): [...] angiomyolipoma 06/04/[address] Fuentes -seen by brine tank separator operator on 07/17/21. -pt is recommended to have MRI -f/u with Dr. Fuentes, next appt TBD Assessment & Plan (04/08/2022 6:24 AM EST): -s/p Embolization of angiomyolipoma 06/04/[address] Fuentes -seen by brine tank separator operator on 07/17/21. -pt is recommended to have MRI -f/u with Dr. Fuentes, next appt TBD Essential hypertension 08/19/2017 Assessment & Plan (07/25/2024 2:04 PM EDT): -Goal BP < 140/90 per [...] months or sooner prn. Assessment & Plan (03/27/2024 1:54 PM EST): [...] flonase and loratadine - prescribed montelukast by automobile taillight assembler, but has not picked up yet Assessment & Plan (04/08/2022 6:26 AM EST): - continue flonase and loratadine Asthma 12/18/2014 Assessment & Plan (07/25/2024 2:04 PM EDT): - Following with [facility], last seen on 08/28/22. Next appointment in Apr 2023 - Treatment Hx: Flovent Changed to Advair HFA + Singulair added in May 2022 - Continue Advair HFA and montelukast - Advised to get her lab done so that automobile taillight assembler can assess if pt will benefit from biologic Tx. - follow-up with Cat Dog Or Other Pet Groomer as scheduled - follow-up with PCP in 4-6 mo Assessment & Plan (03/27/2024 1:54 PM EST): - Following with [facility], last seen on 08/28/22. Next appointment in Apr 2023 - Treatment Hx: Flovent Changed to Advair HFA + Singulair added in May 2022 - Continue Advair HFA and montelukast - Advised to get her lab done so that automobile taillight assembler can assess if pt will benefit from biologic Tx. - follow-up with Cat Dog Or Other Pet Groomer as scheduled - follow-up with PCP in 4-6 mo Assessment & Plan (10/26/2023 2:05 PM EDT): - Following with [facility], last seen on 08/28/22. Next appointment in Apr 2023 - Treatment Hx: Flovent Changed to Advair HFA + Singulair added in May 2022 - Continue Advair HFA and montelukast - Advised to get her lab done so that automobile taillight assembler can assess if pt will benefit from biologic Tx. - follow-up with Cat Dog Or Other Pet Groomer as scheduled - follow-up with PCP in 4-6 mo Assessment & Plan (07/22/2023 10:53 AM EDT): - Following with [facility], last seen on 08/28/22. Next appointment in Apr 2023 - Treatment Hx: Flovent Changed to Advair HFA + Singulair added in May 2022 - Continue Advair HFA and montelukast - Advised to get her lab done so that automobile taillight assembler can assess if pt will benefit from biologic Tx. - follow-up with Cat Dog Or Other Pet Groomer as scheduled - follow-up with PCP in 4-6 mo Assessment & Plan (03/28/2023 9:45 AM EST): - Following with [facility], last seen on 08/28/22. Next appointment in Apr 2023 - Treatment Hx: Flovent Changed to Advair HFA + Singulair added in May 2022 - Continue Advair HFA and montelukast - Advised to get her lab done so that automobile taillight assembler can assess if pt will benefit from biologic Tx. - follow-up with Cat Dog Or Other Pet Groomer as scheduled - follow-up with PCP in 4-6 mo Assessment & Plan (12/18/2022 9:59 AM EDT): - Following with [facility] Other [facility], last seen on 08/28/22 - Treatment Hx: Flovent Changed to Advair HFA + Singulair added in May 2022 - Continue Advair HFA and montelukast - Advised to get her lab done so that automobile taillight assembler can assess if pt will benefit from biologic Tx. - follow-up with Cat Dog Or Other Pet Groomer as scheduled - follow-up with PCP in 4-6 mo Assessment & Plan (08/20/2022 11:05 AM EDT): Seen by Cat Dog Or Other Pet Groomer on 06/09/22 -Flovent Changed to Advair HFA + Singulair added -she hasn't picked up ADVAIR or singulair -advised to check with pharmacy about new medication -follow-up with Cat Dog Or Other Pet Groomer as scheduled -follow-up with PCP in 4-6 months Assessment & Plan (04/08/2022 6:25 AM EST): -Continue Flovent 110mcg BID. -Continue Albuterol prn. -PFT on 10/07/21, inconclusive for Asthma, but likely. Recommended methacholine challenge test. Anxiety 08/18/2012 Assessment & Plan (07/25/2024 2:08 PM EDT): - She is aware of her symptoms and condition. - She does not want to take a medication or engage in counseling. 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 Assessment & Plan (04/02/2024 10:50 AM EST): - She is aware of her symptoms and condition. - She does not want to take a medication or engage in counseling. 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 Chronic back pain 08/18/2012 Medullary sponge kidney 08/18/2012 Assessment & Plan (07/25/2024 2:07 PM EDT): - following with brine tank separator operator Assessment & Plan (03/27/2024 1:55 PM EST): - following with brine tank separator operator Assessment & Plan (10/26/2023 2:06 PM EDT): - following with brine tank separator operator Assessment & Plan (07/22/2023 10:54 AM EDT): - following with brine tank separator operator Assessment & Plan (03/28/2023 9:46 AM EST): - following with brine tank separator operator Vitamin D deficiency 08/18/2012 Resolved Problems Problem Noted Date Diagnosed Date Resolved Date Impaired fasting glucose 02/22/2018 Hepatitis C antibody test positive 08/18/2012 03/26/2024 Overview (03/26/2024): - reactive in 2009, negative in 2019 Encounters Date Type Department Care Team Description 07/27/2024 Telephone [facility] [address] [place] [phone] Shanon Harris MD Medication Question 07/25/2024 1:30 PM EDT Office Visit [facility] [address] [place] [address] Shanon Harris MD Essential hypertension (Primary Dx); Type 2 diabetes mellitus without complication, without long-term current use of insulin (CMS/HCC); Moderate persistent asthma without complication; Medullary sponge kidney; Angiomyolipoma of kidney; Anxiety 07/25/2024 Travel 07/21/2024 Telephone [facility] [address] [place] [address] Shanon Harris MD chartprep 06/02/2024 Population Health Risk Score [facility] () Department [address] [place] [phone] Provider, Population Health Generic from Last 3 Months Immunizations Immunization Administration Dates Next Due Hep A, ped/adol, [...] Answer Date Recorded Patient Health Questionnaire-9 Score 3 07/25/2024 Patient Health Questionnaire-9 Score 3 07/25/2024 Last PHQ-9: Questionnaire Data Not on file 0 07/25/2024 Housing Stability Answer Date Recorded What is [...] Date Recorded Patient Health Questionnaire-2 Score 1 07/25/2024 Comments Unknown Sex and Gender Information Value Date Recorded Sex Assigned at Female 01/19/2022 10:14 AM EDT Legal Sex Female 10:14 AM EDT Gender Identity Female 01/19/2022 10:14 AM EDT Sexual Orientation Straight 01/19/2022 10 :14 AM EDT Last Filed Vital Signs Vital Sign Reading Time Taken Comments Blood Pressure 139/86 07/25/2024 2:00 PM EDT Pulse 69 07/25/2024 2:00 PM EDT Temperature 36 ??C (96.8 ??F) 07/25/2024 2:00 PM EDT Respiratory Rate 15 07/25/2024 2:00 PM EDT Oxygen Saturation 97% 07/25/2024 2:00 PM EDT Inhaled Oxygen Concentration - - Weight 72.8 kg (160 lb 6.4 oz) 07/25/2024 2:00 P M EDT Height 160 cm (5' 3 ) 10/26/2023 1:57 PM EDT Body Mass Index 28.41 10/26/2023 1:57 PM EDT Plan of Treatment [...] 2018 Dental X-Ray: Bitewings 04/10/2024 04/09/2023, 04/13 Eye Exam 06/29/2024 06/29/2022, 06/20, 06/29/2022, Additional history exists SDOH Screening 07/13/2024 07/14/2023 Diabetes: Foot Exam 07/21/2024 07/22/2023, 07/22/2023, 07/22/2023, Additional history exists Diabetes: Hemoglobin A1C 10/25/2024 025, 10/26/2023, 07/22/2023, Additional history exists Diabetes: Urine Protein Screening 03/27/2025 03/27/2024, 06/16/2023, 08/11/2022, Additional history exists Lipid Panel 03/27/2025 03/27/2024, 02/20, 04/08/2022, Additional history exists Tobacco Screening 04/02/2025 04/02/2024 Depression Screening 07/25/2025 07/25/2024, 07/26/19 25 Mammogram 07/30/2025 07/31/2023, 06/21, 06/16/2021, Additional history [...] Date/Time Associated Diagnosis Comments POCT GLUCOSE Routine 07/25/2024 2:01 PM EDT Type 2 diabetes mellitus without complication, without long-term current use of insulin (CMS/HCC) POCT GLYCOSYLATED HEMOGLOBIN (HGB A1C) Routine 07/25/2024 2:01 PM EDT Type 2 diabetes mellitus without complication, without long-term current use of insulin (CMS/HCC) HEPATITIS C AB W/REFL TO HCV RNA, QN, PCR Routine 04/12/2024 8:34 AM EST Transaminitis ALBUMIN, [...] Recently Relevant to Health Maintenance Results * (ABNORMAL) POCT glycosylated hemoglobin (Hgb A1c) (07/25/2024 2:01 PM EDT) Hemoglobin A1C 7.0(A) 4.0 - 6.0 % QC Media Lot # [id number] Lot# Expiration Date Blood Capillary blood specimen / Unknown 07/25/2024 2:01 PM EDT us Shanon Harris MD POINT OF CARE TEST ENTER/EDIT OR DERABLES Final Result * POCT glucose manually resulted (07/25/2024 2:01 PM EDT) Glucose Blood, POC 174 60 - 200 mg/dL QC Media Lot # [id number] Lot# Expiration Date Blood Capillary blood specimen / Unknown 07/25/2024 2:01 PM EDT us Shanon Harris MD POINT OF CARE TEST ENTER/EDIT OR DERABLES Final Result * Hepatitis C Antibody with Reflex to HCV, RNA, Quantitative, Real-Time PCR (04/12/2024 8:34 AM EST) Hepatitis C Antibody Nonreactive Nonreactive [facility] Comment:Antibodies to HCV no t detected; does not exclude early acuteHCV infection. Blood Venous blood specimen / Unknown 04/12/2024 8:34 AM EST 04/12/2024 11:45 AM EST Shanon Harris MD LAB BLOOD ORDERABLES Final Resul t Performing Organization Address [facility] de Phone Number [facility] [address] [place] [phone] * Lipid Panel with Reflex to Direct LDL (03/27/2024 2:15 PM EST) Triglycerides 88 <150 mg/dL [facility] Comment:Desirable Triglyceri de: less than 150 mg/dLBorderline High Triglyceride 150-199 mg/dLHigh Triglyceride: 200-499 mg/dLVery High Triglyceride: greater than or equal to 5OO mg/dL Cholesterol 146 <200 mg/dL [facility] Comment:Desirable Cholestero l: less than 200 mg/dLBorderline High Cholesterol: 200-239 mg/dLHigh Cholesterol: greater than 239 mg/dL LDL Cholesterol Calculated 86 <100 mg/dL [facility] Comment:Desirable LDL: less than 100 mg/dLNear Optimal/Above Optimal LDL: 110- 129 mg/dLBorderline High LDL: 130-159 mg/dLHigh LDL: 160-189 mg/dLVery High LDL: greater than or equal to 190 mg/dL HDL Cholesterol 43 >40 mg/dL [facility] Comment:Desirable HDL: great er than 40 mg/dL Note: This HDL assay may give artificially low results in patients with liver disease. Blood 03/27/2024 2:15 PM EST 03/27/2024 4:19 PM EST Shanon Harris MD LAB BLOOD ORDERABLES Final Resul t Performing Organization Address [facility] Co de Phone Number [facility] [address] [place] [phone] * Albumin, Random Urine W/Creatinine (03/27/2024 2:15 PM EST) Creatinine, Urine 18.25 mg/dL [facility] Microalbumin Urine <5.0 mg/L [facility] Microalbum Creatinine Ratio Ur TNP <30 ug/mg cr [facility] Comment:Unable to calculate albumin/creatinine ratio due to lowmicroalbumin or creatinine result. Urine 03/27/2024 2:15 PM EST 03/27/2024 4:12 PM EST us Shanon Harris MD LAB URINE ORDERABLES Final Resul t [facility] [address] [place] [phone] * Cologuard?? colon cancer screening (08/12/2023 5:03 PM EDT) Cologuard Result Negative Negative 08/20/19 2:18 AM EDT [facility] (CLIA #:[id number]) Comment: NEGATIVE TEST RESULT. A negative Cologuard [...] cancer. ??Following a negative Cologuard result, the [place] [employer] and U.S. Multi-Society Task Force screening guidelines recommend a Cologuard re-screening interval of 3 years. References: [place] [employer] Guideline for Colorectal Cancer Screening: https://www.cancer.org/cancer/uorkt-yywgan-lejnhk/joouvgjwe-bzqbcqpwj-tmdmwxn/ac s-rec ommendations.html.; Jerrod DK, Tavon KIRKPATRICK, Guadalupe CortezK, Colorectal Cancer Screening: Recommendations for Physicians and Patients from the U.S. Multi-Society Task Force on Colorectal Cancer Screening , Am J Gastroenterology 2017; 112:4974-1817. TEST DESCRIPTION: Composite algorithmic analysis of stool [...] Sotelo et al, N Engl J Med 2014;370(14):7794-6618.) Cologuard may produce a false negative or false positive result (no colorectal cancer or precancerous polyp present at colonoscopy follow up). A negative Cologuard test result does not guarantee the absence of CRC or advanced adenoma (pre-cancer). The current Cologuard screening interval is every 3 years. ([place] [employer] and U.S. Multi-Society Task Force). Cologuard performance data in a 10,000 patient pivotal study using colonoscopy as the reference method can be accessed at the following location: www.[employer]/results. Additional description of the Cologuard test process, warnings and precautions can be found at www.cologuard.[employer]. Stool specimen (specimen) 08/12/2023 5:03 PM EDT 08/14/2023 10:50 AM EDT Shanon Harris MD LAB MOLECULAR DIAGNOSTICS ORDERA BLES Final Result [facility] (CLIA #:[id number]) [address] [place] [address], * BI Mammogram Screening Tomosynthesis Bilateral (07/31/2023 10:10 AM EDT) Anatomical Region Laterality Modality Breast Bilateral Mammography 07/31/2023 10:1 0 AM EDT Narrative 08/22/2023 7:52 PM EDT ? [facility] ? [address] ?[place] [address] ? Mammography Report ? Signed with Addenda ? Patient: Manjit,Mari ?MR#: [id number] ?? 97 ? : 1970 ?Acct:[id number] ? Age/Sex: 53 / F ?ADM Date: 07/31/23 ? Loc: HO.MAMMO ? Attending Dr: Shanon Harris MD ? Ordering Physician: Kimberly,Shanon MD ?Results: 0Incomple ?? te: Needs Additional Imaging Evaluation ? Date of Service: 07/31/23 ?Follow Up: Additional Imagi ?? ng ? Procedure(s): MM tomosynthesis screening BI ?? Accession Number(s): [id number] ? cc: Shanon Harris MD ?ADDENDUM ?? [...] 1950 ? DD/ 1010 ? TD/TT: ? Nfl Player: ? Procedure Note Donotuseinterpreter, Image - 08/23/2023 [facility] [address] [place], [place] [address] Mammography Report Signed with Addenda Patient: Pako SaraviaR#: [id number] 97 : 1970Acct:[id number] Age/Sex: 53 / FADM Date: 07/31/23 Loc: HO.MAMMO Attending Dr: Shanon Harris MD Ordering Physician: Shanon Harrisesults: 0Incomple te: Needs Additional Imaging Evaluation Date of Service: 07/31/23Follow Up: Additional Imagi ng Procedure(s): MM tomosynthesis screening BI Accession Number(s): [id number] cc: Shanon Harris MD ADDENDUM ADDENDUM: OVERALL ASSESSMENT: BI-RADS 0 - Incomplete: Needs additional Imaging. RECOMMENDATION: Additional Imaging required Addendum Dictated By: Yani Nava MD Addendum Signed By: <Electronically signed by Yani Nava MD in OV> 08/23/23708 Addendum Cosigned By: DD/ /12/1030 TD/TT: / [...] in OV> 08/22/23 194 DD/ 1010 TD/TT: Nfl Player: Shanon Harris MD IMG BI PROCEDURES Edited [...] ? For additional information please refer to http://education.[employer]/faq/LTB653 (This link is being provided for informational/ educational purposes only.) ? The performance of this assay has not been clinically validated in patients less than 2 years old. ?? 04/22/2021 8:19 AM EST Shanon Harris MD LAB BLOOD ORDERABLES Final Resul t [facility] [address] * Pap Smear (07/31/2020) Pap Negative for intraephithelial lesion or malignancy Negative for intraephithelial lesion or malignancy, Other HPV Undetected 07/31/2020 Result [facility] Usman Joshua MD HEALTH MAINTENANCE Final Result from Last 3 Months or Most Recently Relevant to Health Maintenance Insurance [facility] F[facility] S[facility] STAND ADULT Care Teams Posting Clerk Relationship Specialty Start Date End Date Shanon Harris MD [address] [place] [phone] PCP - General Family Medicine 03/22/18
--- OUTSIDE RECORDS SUMMARY | 2024-08-05 10:27 | XMS_ITS | Encounter Summary ---
Author Organization [employer] Address [address] [facility] 7[address] [place] [address] Care Team Providers Care Road Builder Name Role Phone Shanon Harris MD Primary Care Provider [phone] Encounter Details Date Type Department Care Team (Latest Contact Info) Description 10/21/2018 Abstract [facility] CONVERSIONS Dental, Provider, DDS Social History Tobacco [...] on filedocumented in this encounter Care Teams Road Builder Relationship Specialty Start Date End Date Shanon Harris MD [address] [place] [phone] PCP - General Family Medicine 03/22/18 documented as of this encounter
== END 2024-08-05 10:26 | disposition home or self-care (01) ==
LOC: HO.MAMMO 10:25
PROVIDERS: PCP Family Medicine; Visit Provider Family Medicine
DX: Z12.31 Encounter for screening mammogram for malignant neoplasm of breast (principal)
CPT/HCPCS: 77063; 77067

== ENCOUNTER → 2024-08-05 10:30 | Outpatient (BNV) | payer OTHER, SELFPAY | PROVIDERS: PCP Family Medicine; Visit Provider Internal Medicine | DX: Z12.31 Encounter for screening mammogram for malignant neoplasm of breast (principal) | CPT/HCPCS: 77063; 77067 ==

== ENCOUNTER 2025-01-10 14:23 | Outpatient (AMB) | payer OTHER, SELFPAY ==
--- NOTE | 2025-01-10 14:26 | MHC.OFFVIS ---
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 Patient reports symptoms began about 1 year ago. She describes the pain as discomfort. She denies numbness or tingling. She has not tried any forms of treatment. Patient states most treatment options have to go trough her PCP due to a condition she has. 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 Patient reports symptoms began about 1 year ago. She describes the pain as discomfort. She denies numbness or tingling. She has not tried any forms of treatment. Patient states most treatment options have to go trough her PCP due to a condition she has. She states that this condition is genetic in nature, but she is unable to recall what exactly it is or what it might prevent her from doing PFSH Medical History Environmental allergies Chronic allergic rhinitis Asthma Diabetes Asthma Hypertension Surgical History History of kidney surgery Hx of cholecystectomy H/O dilation and curettage Family History (Updated 06/30/24 @ 11:53 by Stephanie Ibanez CMA) Mother Heart attack Diabetes Father Diabetes HTN (hypertension) Heart disease Brother Diabetes Lung cancer Sister Diabetes Heart attack Social History Household Members: Spouse and Children Housing: House Alcohol intake: never Patient Tobacco Use Status: Never used Tobacco Current occupational status: unemployed Sexual orientation: Straight/Heterosexual Gender identity: Female Female Reproductive History Menstrual Age of Menarche: 6 Review of Systems Const All systems reviewed & are unremarkable except as noted in HPI and below Physical Exam Vital Signs: BMI result Body Mass Index 28.0 Extrem Other: Patient is alert, oriented, and in no acute distress. Neuro: Normal sensation of the tips of all digits of the left hand at this time Vascular: Cap refill brisk Pain: Tenderness to palpation of the A1 mary grace of the left middle finger Pain associated with locking and catching of the left middle finger ROM: There is a visible and palpable locking and catching of the left middle finger in a flexed position Patient is able to flex and extend all other digits of the left hand fully and without difficulty Skin: No lacerations or abrasions. General: No ecchymosis, erythema, or evidence of infection. Psych: Appears grossly normal Affect normal Attitude cooperative Assessment & Plan Assessment & Plan (1) Trigger finger, left middle finger: Code(s): M65.332 - Trigger finger, left middle finger Category: Medical Plan 1. Left middle finger trigger finger Patient is educated about this condition Patient is educated about the treatment options available At this time, patient states she would like to clear with her primary care provider whether an injection or surgery would be safe for her given her genetic condition Patient will call Primary Care Provider and discuss this with them, if Primary Care Provider clears her for surgery she will call our office for another appointment to discuss surgery or injection Patient understands this in his amenable to this plan Follow-up as needed with any acute concerns Coding Level of Care Code New Pt Level 3 (46933) Diagnoses Trigger finger, left middle finger M65.332
[2025-01-10 14:31] VITALS: BMI 28.0
--- OUTSIDE RECORDS SUMMARY | 2025-01-10 20:36 | XMS_ITS | Encounter Summary ---
Author Organization [employer] Address [address] [facility] [address] [place] [address] Care Team Providers Care Workers Compensation Legal Secretary Name Role Phone Shanon Harris MD Primary Care Provider [phone] Reason for Visit * Reason Onset Date Comments requesting a call 10/12/2022 Encounter Details Date Type Department Care Team ([facility] st Contact Info) Description 10/12/2022 Telephone [facility] [address] [place] [address] Shanon Harris MD [address] [place] [address] requesting a call Social History Tobacco Use [...] Jay - 10/12/2022 4:01 PM EDT Tc from leslie with VARSHA hernandez requesting to speak with PCP. Please contact VARSHA hernandez at [phone] documented in this encounter Plan of Treatment Upcoming Encounters Date Type Department Care Team (Late st Contact Info) Description 02/20/2025 10:30 AM EST Office Visit [facility] OPTOMET[facility] [address] [place] [address] TarEna chang, OD [address] [place] [address] documented as of this encounter Visit Diagnoses Not on filedocumented in this encounter Additional Health Concerns Assessment Noted Time PHQ-9 Depression Total Score: 0 04/08/19 23 11:25 AM EST documented as of this encounter Care Teams Workers Compensation Legal Secretary Relationship Specialty Start Date End Date Shanon Harris MD [address] [place] [address] PCP - General Family Medicine 03/22/18 documented as of this encounter
--- OUTSIDE RECORDS SUMMARY | 2025-01-10 20:36 | XMS_ITS | Clinical Summary ---
Author Organization [facility] Address [address] [place] [address] Phone Care Team Providers Care Tire Changer Aircraft Name Role Phone Physician, Pcp Unknown Primary [...] Cervical Cancer Screening: P ap Smear 1990 RSV Immunization Adult Patients (1 - Risk 50-74 years 1-dose series) 07/03/2019 Zoster Vaccines (1 of 2) 07/03/2019 Pneumococcal Vaccine: 50+ Years (2 of 2 - PCV) 01/31/2021 02/01/2020 Cholesterol Screening (Lipid Panel) 05/28/2023 Hepatitis C Screening 05/28/2023 Social Influencers of Health Screening 05/28/2023 Depression Screening 03/22/2024 Diabetes: Annual Urine Albumin-Creatinine Ratio (uACR) 04/03/2024 Diabetes: Blood Sugar Contro l Test (HGBA1C) 04/27/2024 10/26/2023 COVID-19 Vaccine ( - 2023-2 5 season) 2024 Influenza Vaccine (#1) 2024 0, 05/23/2018 Diabetes: Annual GFR (Glomerular Filtration Rate) [...] to complete this topic Insurance MEDICAID - [place] Care Teams Tire Changer Aircraft Relationship Specialty Start Date End Date Physician, Pcp Unknown PCP - General 04/03/24
--- OUTSIDE RECORDS SUMMARY | 2025-01-10 20:36 | XMS_ITS | Encounter Summary ---
Author Organization [employer] Address [address] [facility] [address]t [place] [address] Care Team Providers Care Farm Advisor Name Role Phone Shanon Harris MD Primary Care Provider [phone] Reason for Visit * Reason Comments Med Refill Encounter Details Date Type Department Care Team ([facility] Contact Info) Description 04/14/2022 Refill [facility] [address] [place], [place] [phone] Shanon Harris MD [address] [place] [address] Social History Tobacco Use Types Packs/Day Years [...] Upcoming Encounters Date Type Department Care Team ([facility] Contact Info) Description 02/20/2025 10:30 AM EST Office Visit [facility] OPTOMETRY [address] [place], [place] [phone] Narendrabernardo Ena, OD [address] [place] [address] documented as of this encounter Visit Diagnoses Not on filedocumented in this encounter Additional Health Concerns Assessment Noted Time PHQ-9 Depression Total Score: 0 04/08/19 23 11:25 AM EST documented as of this encounter Care Teams Farm Advisor Relationship Specialty Start Date End Date Shanon Harris MD [address] [place] [phone] PCP - General Family Medicine 03/22/18 documented as of this encounter
--- OUTSIDE RECORDS SUMMARY | 2025-01-10 20:36 | XMS_ITS | Encounter Summary ---
Author Organization [employer] Address [address] [facility] [address] [place] [address] Care Team Providers Care Finished Cigar Maker Name Role Phone Shanon Harris MD Primary Care Provider [phone] Reason for Referral * Imaging (Routine) - Closed Specialty Diagnoses / Procedures Referred By Nida díaz Referred To Contact Radiology Diagnoses Transaminitis Procedures US Abdomen Comp w elastography Shanon Harris MD [address] [place] [address] Phone: tel: fax: [address] Phone: tel: fax: Referral ID Status Reason Start Date Expiration Date Visits Re quested Visits Authorized [id number] Closed 03/27/2024 03/27/2025 1 0 Encounter Details Date Type Department Care Team (Late st Contact Info) Description 03/27/2024 Orders Only [facility] [address] [place] [phone] Shanon Harris MD [address] [place], [place] [phone] Transaminitis (Primary Dx) Social History Tobacco Use [...] Description 02/20/2025 10:30 AM EST Office Visit [facility] OPTOMETRY [address] [place] [address] Ena Wang, OD [address] [place] [address] documented as of this encounter Procedures Procedure [...] AM EST Narrative 04/19/2024 1:42 PM EST [place] [address] Ultrasound Report Signed Patient: Mari Saravia MR#: [id number] 97 : 1970 Acct:[id number] Age/Sex: 53 / F ADM Date: 04/19/24 Loc: .US Attending Dr: Shanon Harris MD Ordering Physician: Shanon Harris MD Date of Service: 04/19/24 Procedure(s): US abdomen comp w elastography Accession Number(s): [id number] cc: Shanon Harris MD EXAMINATION: US ABDOMEN [...] 04/19/24 1339 DD/ 0904 TD/TT: 04/19/24 0924 Screen Printing Stencil Preparer: Procedure Note Donotuseinterpreter, Image - 04/19/2024 [place] [address] Ultrasound Report Signed Patient: Alisha Saravia#: [id number] [birth year] : 1970Acct:[id number] Age/Sex: 53 / FADM Date: 04/19/24 Loc: HO.US Attending Dr: Shanon Harris MD Ordering Physician: Shanon Harris MD Date of Service: 04/19/24 Procedure(s): US abdomen comp w elastography Accession Number(s): [id number] cc: Shanon Harris MD EXAMINATION: US ABDOMEN [...] OV> 04/19/24 1339 DD/ 0904 TD/TT: 04/19/24 09 Screen Printing Stencil Preparer: us Shanon Kimberly [facility] US PROCEDURES Edited Result - Final * (ABNORMAL) CBC auto differential (04/12/2024 8:43 AM EST) White Blood Count 4.7(L) 4.8 - 10.8 X10*3/uL [facility] Red Blood Count 5.38 4.20 - 5.50 X10*6/uL [facility] Hemoglobin 14.6 12.0 - 16.0 g/dl [facility] Hematocrit 45.9 37.0 - 47.0 % [facility] Mean Corpuscular Volume 85.3 80.0 - 98.0 fL [facility] Mean Corpuscular Hemoglobin 27.1 27.0 - 33.0 pg [facility] Mean Corpuscular HGB Conc 31.8 31.0 - 35.0 g/dl [facility] Red Cell Distribution Width 13.1 11.0 - 16.0 % [facility] Platelet Count 313 160 - 400 X10*3/uL [facility] Mean Platelet Volume 9.5 9.4 - 12.3 fL [facility] Neutrophils Percent Auto 57.3 45 - 73 % [facility] Imm Gran Pct Auto 0.2 0.0 - 0.4 % [facility] Lymphocytes Percent Auto 28.1 20 - 40 % [facility] Monocytes Percent Auto 13.1(H) 2 - 11 % [facility] Eosinophils Percent Auto 1.1 0 - 4 % [facility] Basophils Percent Auto 0.2 0 - 2 % [facility] NRBC Pct Auto 0.0 0.0 - 0.2 /100WBC [facility] Neutrophils Absolute Auto 2.7 2.0 - 8.3 x10*3/uL [facility] Imm Gran Abs Auto 0.01 0.00 - 0.03 X10*3/uL [facility] Lymphocytes Absolute Auto 1.3 1.2 - 4.9 X10*3/uL [facility] Monocytes Absolute Auto 0.6 0.1 - 1.2 X10*3/uL [facility] Eosinophils Absolute Auto 0.1 0.0 - 0.4 X10*3/uL [facility] Basophils Absolute Auto 0.0 0.0 - 0.2 X10*3/uL [facility] NRBC Abs Auto 0.000 0.0 - 0.012 X10*3/uL [facility] Blood Venous blood specimen / Unknown 04/12/2024 8:43 AM EST 04/12/2024 11:45 AM EST us Shanno Harris MD LAB BLOOD ORDERABLES Final Resul t [facility] [address] [place] [address] [phone] * Prothrombin Time-INR (04/12/2024 8:34 AM EST) Prothrombin Time 12.0 10.9 - 12.4 SEC [facility] INTERNATIONAL NORM RATIO 1.0 0.9 - 1.1 [facility] Comment:INTERNATIONAL NORMAL IZED RATIO (INR) [...] ORDERABLES Final Resul t Performing Organization Address City/[facility]/ZIP Co de Phone Number [facility] [address] [place] [phone] * Hepatitis C Antibody with Reflex to HCV, RNA, Quantitative, Real-Time PCR (04/12/2024 8:34 AM EST) Pathologist [facility] Hepatitis C Antibody Nonreactive Nonreactive [facility] Comment:Antibodies to HCV no t detected; does not exclude early acuteHCV infection. Blood Venous blood specimen / Unknown 04/12/2024 8:34 AM EST 04/12/2024 11:45 AM EST Shanon Harris MD LAB BLOOD ORDERABLES Final Resul t Performing Organization Address City/[facility] Co de Phone Number [facility] [address] [place] [phone] * Hepatitis B surface antigen, EIA (04/12/2024 8:34 AM EST) Pathologist [facility] Hepatitis B Surface Ag Negative Negative [facility] Blood Venous blood specimen / Unknown 04/12/2024 8:34 AM EST 04/12/2024 11:45 AM EST us Shanon Harris MD LAB BLOOD ORDERABLES Final Resul t Performing Organization Address [facility] Co de Phone Number [facility] [address] [place] [phone] * Hepatitis B Surface Antibody, Qualitative (04/12/2024 8:34 AM EST) ~Hepatitis B Surface Antibody NONREACTIVE Nonreactive [facility] Comment:Nonreactive: < 8.00 mIU/mL Blood Venous blood specimen / Unknown 04/12/2024 8:34 AM EST 04/12/2024 11:45 AM EST us Shanon Harris MD LAB BLOOD ORDERABLES Final Resul t Performing Organization Address [facility] Co de Phone Number [facility] [address] [place] [phone] * Hepatitis B Core Antibody, Total (04/12/2024 8:34 AM EST) Hepatitis B Core Antibody Nonreactive Nonreactive [facility] Blood Venous blood specimen / Unknown 04/12/2024 8:34 AM EST 04/12/2024 11:45 AM EST Shanon Harris MD LAB BLOOD ORDERABLES Final Resul t Performing Organization Address [facility] Co de Phone Number [facility] [address] [place] [phone] * Hepatitis A Antibody, Total (04/12/2024 8:34 AM EST) Hepatitis A Antibody IgG REACTIVE Nonreactive [facility] Comment:The presence of IgG anti-HAV implies past HAV infection(recent or distant) or vaccination against HAV. Blood Venous blood specimen / Unknown 04/12/2024 8:34 AM EST 04/12/2024 11:45 AM EST Shanon Harris MD LAB BLOOD ORDERABLES Final Resul t [facility] [address] [place] [phone] documented in this encounter Visit Diagnoses Diagnosis Transaminitis- Primary Nonspecific elevation of levels of transaminase or lactic acid dehydrogenase (LDH) documented in this encounter Additional Health Concerns Assessment Noted Time PHQ-9 Depression Total Score: 5 10/26/19 24 1:59 PM EDT documented as of this encounter Care Teams Finished Cigar Maker Relationship Specialty Start Date End Date Shanon Harris MD [address] [place] [phone] PCP - General Family Medicine 03/22/18 documented as of this encounter
--- OUTSIDE RECORDS SUMMARY | 2025-01-10 20:36 | XMS_ITS | Encounter Summary ---
Author Organization [employer] Address [address] [facility] 7t [place] [address] Care Team Providers Care Intelligence Research Specialist Name Role Phone Shanon Harris MD Primary Care Provider [phone] Reason for Visit * Reason Comments Med Refill Encounter Details Date Type Department Care Team (Late Contact Info) Description 05/09/2022 Refill [facility] MED[facility] [address] [place] [address] Shanon Harris MD [address] [place] [address] Social History Tobacco Use Types Packs/Day Years [...] Description 02/20/2025 10:30 AM EST Office Visit [facility] OPTOMETRY [address] [place] [address] TarkaEna, OD [address] [place] [address] documented as of this encounter Visit Diagnoses Not on filedocumented in this encounter Additional Health Concerns Assessment Noted Time PHQ-9 Depression Total Score: 0 04/08/19 23 11:25 AM EST documented as of this encounter Care Teams Intelligence Research Specialist Relationship Specialty Start Date End Date Shanon Harris MD [address] [place] [address] PCP - General Family Medicine 03/22/18 documented as of this encounter
--- OUTSIDE RECORDS SUMMARY | 2025-01-10 20:36 | XMS_ITS | Clinical Summary ---
Author Organization [employer] Address [address] [place] [address] [address] [place] [address] Care Team Providers Care Electrical Controls Engineer Name Role Phone Shanon Harris MD Primary Care Provider [phone] Allergies Active Allergy Reactions Criticality Noted Date [...] GRAMS BY MOUTH TWICE DAILY 2 Active lactulose (Chronulac) 10 GM/15ML solution TAKE 15 ML BY MOUTH DAILY NEEDED FOR LAXATIVE EFFECT 2 Active hydrocortisone (Anusol-HC) 2.5 % rectal cream Apply topically every 12 (twelve) hours. 0 Active fluticasone (Flonase) 50 MCG/ACT nasal spray spray 1 spray by intranasal route every day in each nostril 2 Active docusate sodium (Colace) 100 MG capsule [...] amLODIPine (Norvasc) 2.5 MG tabletIndications :Essential hypertension Take 1 tablet (2.5 mg) by mouth Once per day. 90 tablet 3 5 Active EPINEPHrine (EpiPen 2-Toby) 0.3 MG/0.3ML injection syringe Inject 0.3 mL (0.3 mg) as directed 1 (one) time for 1 dose. 1 each 3 5 Active Active Problems Problem Noted Date Diagnosed Date Trigger middle finger of left hand 11/04/2024 Transaminitis 04/02/2024 Assessment & Plan (11/04/2024 6:30 AM EDT): - history of positive Hep C antibody, which was cleared naturally - most likely MASLD / fatty liver - continue working on lifestyle modifications - Abdo US with elastography: 04/19/24. Enlarged liver. Median shear wave velocity 1.53 m/s. - Fib 4 index 1 - Hep A immune - complete Hep B immunizations Assessment & Plan (04/02/2024 10:57 AM EST): - history of positive Hep C antibody, which was cleared naturally - most likely MASLD / fatty liver - continue working on lifestyle modifications - check hepatitis profile - Hep A immunity not available; will check and immunize if non-reactive - complete Hep B immunizations Dental caries 04/09/2023 Dental calculus 04/09/2023 Inspiratory wheezing 04/12/2022 Assessment & Plan (04/12/2022 12:25 PM EST): - O2 sat 95% - Last CXR in 2018 showed diffuse prominence of the background interstitium. This finding is nonspecific but may reflect an element of small airway disease. No consolidation - refer to machine brush maker for further evaluation Diabetes mellitus, type 2 04/08/2022 Assessment & Plan (11/04/2024 6:26 AM EDT): Dx type 2 DM on January 15, 2020 by YUMIKO > 500 -A1C > 14% on 01/23/20 -A1C 6.0% on 10/26/23 -A1c 7.0% on 07/25/24 -A1c 6.5% on 11/02/2024 - Patient was supposed to start metformin after last visit due to worsening glycemic control with A1c 7.0% on 07/25/2024. However, patient dislikes medication and was able to improve glycemic control with healthy diet and physical activity -Treatment Hx: Metformin 1 g bid after Dx; tapered down as she improved her diet, and completely discontinued metformin on 04/21/21 - Continue working on lifestyle modifications. -Comprehensive eye exam: 03/11/20 at [facility] eye care, no diabetic retinopathy -Foot exam 11/02/2024 -Last Lipid profile 03/27/24, She does not want to start statin -Last microalbuminuria test on 03/27/24, no microalbuminuria -Follow-up in 4-6 months or sooner prn Assessment & Plan (07/25/2024 2:35 PM EDT): Dx type 2 DM on January 15, 2020 by YUMIKO > 500 -A1C > 14% on 01/23/20 -A1C 6.0% on 10/26/23 -A1C 6.6% on 03/27/24 -A1c 7.0% on 07/25/24 -Currently managing with lifestyle modifications -Treatment Hx: Metformin 1 g bid after Dx; tapered down as she improved her diet, and completely discontinued metformin on 04/21/21 -Restart Metformin XR 500 mg once daily. Continue working on lifestyle modifications. -Comprehensive eye exam: 03/11/20 at [facility] eye care, no diabetic retinopathy -Foot exam [...] on 04/21/21 -Comprehensive eye exam: 03/11/20 at [facility] eye care, no diabetic retinopathy -Foot exam [...] on 04/21/21 -Comprehensive eye exam: 03/11/20 at [facility] eye care, no diabetic retinopathy -Foot exam [...] on 04/21/21 -Comprehensive eye exam: 03/11/20 at [facility] eye care, no diabetic retinopathy -Foot exam [...] on 04/21/21 -Comprehensive eye exam: 03/11/20 at [facility] eye care, no diabetic retinopathy -Foot exam [...] on 04/21/21 -Comprehensive eye exam: 03/11/20 at [facility] eye care, no diabetic retinopathy -Foot exam [...] on 04/21/21 -Comprehensive eye exam: 03/11/20 at [facility] eye care, no diabetic retinopathy -Foot exam [...] on 04/21/21 -Comprehensive eye exam: 03/11/20 at [facility] eye care, no diabetic retinopathy -Foot exam 04/07/22 -Last Lipid profile 04/22/21 TC 137; TG 48; HDL 44; LDL 79 --She does not want to start statin -Last microalbuminuria test on 04/22/21 UACR 13 --Follow-up in 4 months Angiomyolipoma of kidney 08/19/2017 Assessment & Plan (11/04/2024 6:31 AM EDT): -s/p Embolization of angiomyolipoma 06/04/17 [...] MRI in two years Assessment & Plan (07/25/2024 2:33 PM EDT): -s/p Embolization of angiomyolipoma 18 [...] 1:55 PM EST): -s/p Embolization of angiomyolipoma [address] 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 - most recent MRI on 03/16/23 showed 3.3 cm angiolipoma in the upper pole of right kidney, slightly exophytic, smaller in size. There is another stable small angiolipoma in the lower pole of right kidney. Assessment & Plan (10/26/2023 2:06 PM EDT): -s/p Embolization of angiomyolipoma 18 [...] angiomyolipoma 06/04/[address] Fuentes -seen by environmental health safety engineer on 07/17/21. -pt is recommended to have MRI -f/u with Dr. Fuentes, next appt TBD Assessment & Plan (04/08/2022 6:24 AM EST): -s/p Embolization of angiomyolipoma 06/04/[address] Fuentes -seen by environmental health safety engineer on 07/17/21. -pt is recommended to have MRI -f/u with Dr. Fuentes, next appt TBD Essential hypertension 08/19/2017 Assessment & Plan (11/04/2024 6:23 AM EDT): -Goal BP < 130/80 per ACC/AHA guideline. BP at goal today; BP within acceptable range at home. -Known white-coat HTN. -Continue lifestyle modifications -Work on stress reduction -Continue amlodipine to 2.5 mg. Hold amlodipine if systolic BP < 110. -Tx Hx: Amlodipine decreased from 10mg to 5mg in August 2021, further decrease in March 2022 Assessment & Plan (07/25/2024 2:04 PM EDT): [...] prn. Allergic rhinitis 12/18/2014 Assessment & Plan (11/04/2024 6:23 AM EDT): - continue flonase, loratadine and montelukast Assessment & Plan (03/27/2024 1:55 PM EST): - continue flonase, loratadine and montelukast Assessment & Plan (07/22/2023 10:54 AM EDT): - continue flonase, loratadine and montelukast Assessment & Plan (12/18/2022 11:17 AM EDT): - continue flonase, loratadine and montelukast Assessment & Plan (08/20/2022 11:08 AM EDT): - continue flonase and loratadine - prescribed montelukast by machine brush maker, but has not picked up yet Assessment & Plan (04/08/2022 6:26 AM EST): - continue flonase and loratadine Asthma 12/18/2014 Assessment & Plan (11/04/2024 6:36 AM EDT): - Following with [facility] Core Fitter, last seen on 08/28/22. - Treatment Hx: Flovent Changed to Advair HFA + Singulair added in May 2022 - Continue Advair HFA and montelukast - Advised to get her lab done so that machine brush maker can assess if pt will benefit from biologic Tx. - follow-up with Core Fitter as scheduled - Consider transitioning to [facility] Assessment & Plan (07/25/2024 2:04 PM EDT): - Following with [facility] Core Fitter, last seen on 08/28/22. Next appointment in Apr 2023 - Treatment Hx: Flovent Changed to Advair HFA + Singulair added in May 2022 - Continue Advair HFA and montelukast - Advised to get her lab done so that machine brush maker can assess if pt will benefit from biologic Tx. - follow-up with Core Fitter as scheduled - follow-up with PCP in 4-6 mo Assessment & Plan (03/27/2024 1:54 PM EST): - Following with [facility] Core Fitter, last seen on 08/28/22. Next appointment in Apr 2023 - Treatment Hx: Flovent Changed to Advair HFA + Singulair added in May 2022 - Continue Advair HFA and montelukast - Advised to get her lab done so that machine brush maker can assess if pt will benefit from biologic Tx. - follow-up with Core Fitter as scheduled - follow-up with PCP in 4-6 mo Assessment & Plan (10/26/2023 2:05 PM EDT): - Following with [facility] Core Fitter, last seen on 08/28/22. Next appointment in Apr 2023 - Treatment Hx: Flovent Changed to Advair HFA + Singulair added in May 2022 - Continue Advair HFA and montelukast - Advised to get her lab done so that machine brush maker can assess if pt will benefit from biologic Tx. - follow-up with Core Fitter as scheduled - follow-up with PCP in 4-6 mo Assessment & Plan (07/22/2023 10:53 AM EDT): - Following with [facility] Core Fitter, last seen on 08/28/22. Next appointment in Apr 2023 - Treatment Hx: Flovent Changed to Advair HFA + Singulair added in May 2022 - Continue Advair HFA and montelukast - Advised to get her lab done so that machine brush maker can assess if pt will benefit from biologic Tx. - follow-up with Core Fitter as scheduled - follow-up with PCP in 4-6 mo Assessment & Plan (03/28/2023 9:45 AM EST): - Following with [facility] Core Fitter, last seen on 08/28/22. Next appointment in Apr 2023 - Treatment Hx: Flovent Changed to Advair HFA + Singulair added in May 2022 - Continue Advair HFA and montelukast - Advised to get her lab done so that machine brush maker can assess if pt will benefit from biologic Tx. - follow-up with Core Fitter as scheduled - follow-up with PCP in 4-6 mo Assessment & Plan (12/18/2022 9:59 AM EDT): - Following with [facility] Core Fitter, last seen on 08/28/22 - Treatment Hx: Flovent Changed to Advair HFA + Singulair added in May 2022 - Continue Advair HFA and montelukast - Advised to get her lab done so that machine brush maker can assess if pt will benefit from biologic Tx. - follow-up with Core Fitter as scheduled - follow-up with PCP in 4-6 mo Assessment & Plan (08/20/2022 11:05 AM EDT): Seen by Core Fitter on 06/09/22 -Flovent Changed to Advair HFA + Singulair added -she hasn't picked up ADVAIR or singulair -advised to check with pharmacy about new medication -follow-up with Core Fitter as scheduled -follow-up with PCP in 4-6 [...] engage in counseling. 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 Assessment & Plan (04/02/2024 10:50 AM EST): - She is aware of her symptoms and condition. - She does not want to take a medication or engage in counseling. 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 Chronic back pain 08/18/2012 Medullary sponge kidney 08/18/2012 Assessment & Plan (11/04/2024 6:30 AM EDT): - following with environmental health safety engineer, last seen in July 2024 Assessment & Plan (07/25/2024 2:07 PM EDT): - following with environmental health safety engineer Assessment & Plan (03/27/2024 1:55 PM EST): - following with environmental health safety engineer Assessment & Plan (10/26/2023 2:06 PM EDT): - following with environmental health safety engineer Assessment & Plan (07/22/2023 10:54 AM EDT): - following with environmental health safety engineer Assessment & Plan (03/28/2023 9:46 AM EST): - following with environmental health safety engineer Vitamin D deficiency 08/18/2012 Resolved Problems Problem Noted Date Diagnosed Date Resolved Date Nasal congestion 08/11/2022 11/04/2024 Assessment & Plan (08/11/2022 12:23 PM EDT): Negative COVID test today Impaired fasting glucose 02/22/2018 Hepatitis C antibody test positive 08/18/2012 03/26/2024 Overview (03/26/2024): - reactive in 2009, negative in 2019 Encounters Date Type Department Care Team Description 11/02/2024 11:00 AM EDT Office Visit [facility] [address] [place] [phone] Shanon Harris MD Essential hypertension (Primary Dx); Type 2 diabetes mellitus without complication, without long-term current use of insulin (CMS/HCC); Allergic rhinitis, unspecified seasonality, unspecified trigger; Vitamin D deficiency; Transaminitis; Medullary sponge kidney; Angiomyolipoma of kidney; Moderate persistent asthma without complication; Trigger middle finger of left hand 11/02/2024 Travel 11/01/2024 Telephone [facility] [address] [place] [phone] Shanon Harris MD chart prep 10/26/2024 Patient Outreach [address] [address] Shanon Harris MD Pre-visit Planning (SDOH screening negative and tobacco screening negative) from Last 3 Months Immunizations Immunization Administration [...] situation today? I have barry da silva 10/26/[address] you li ve. Do you have problems with any of the following? None of the above 10/26/2024 Food Insecurity Answer Date Recorded Within the past 12 months, y ou worried that your food would run out before you got money to buy more: Never True 10/26/2024 Within the past 12 months,th e food you bought just didn't last and you didn't have enough money to get more: Never True 09/2024 Transportation Answer Date Recorded In the past 12 months, has l ack of transportation kept you from medical appts, meetings, work or from getting things needed for daily living? No 10/26/2024 Utilities Answer Date Recorded In the past 12 months, has t he electric, gas, oil or water company threatened to shut off services in your home? No 10/26/2024 Depression Answer Date Recorded Patient Health Questionnaire-2 Score 1 07/25/2024 Internet Access Answer Date Recorded Internet Access Q1 Yes 10/26/2024 Internet Access Q2 Not on file 10/26/2024 Comments No Sex and Gender Information Value Date Recorded Sex Assigned at Female 01/19/2022 10:14 AM EDT Legal Sex Female 10:14 AM EDT Gender Identity Female 01/19/2022 10:14 AM EDT Sexual Orientation Straight 01/19/2022 10 :14 AM EDT Last Filed Vital Signs Vital Sign Reading Time Taken Comments Blood Pressure 118/80 11/02/2024 11:28 AM EDT Pulse 68 11/02/2024 11:28 AM EDT Temperature 36 C (96.8 F) 11/02/2024 11:28 AM EDT Respiratory Rate 17 11/02/2024 11:28 AM EDT Oxygen Saturation 99% 11/02/2024 11:28 AM EDT Inhaled Oxygen Concentration - - Weight 71.9 kg (158 lb 9.6 oz) 11/02/2024 11:28 AM EDT Height 160 cm (5' 3 ) 11/02/2024 11:28 AM EDT Body Mass Index 28.09 11/02/2024 11:28 AM EDT Plan of Treatment Upcoming Encounters Date Type Department Care Team (Late st Contact Info) Description 02/20/2025 10:30 AM EST Office Visit [facility] [address] [place] [address] Ena Wang, OD [address] [place] [address] Health Maintenance Due Date Last Done Comments CT Colonography 1970 Colonoscopy 1970 FIT 1970 Sigmoidoscopy 1970 Hepatitis B Vaccines (1 of 3 - 19+ 3-dose series) 1988 12/19/2008, 10/04/2008 Zoster Vaccines (1 of 2) 07/03/2019 Pneumococcal Vaccine: 50+ Years (2 of 2 - PCV) 01/31/2021 02/01/2020 Pap Smear 08/01/2023 07/31/2020 Dental Oral Exam 10/09/2023 04/09/2023 Dental Prophylaxis 10/09/2023 04/09/2023, 10/21/2018 Dental X-Ray: Bitewings 04/10/2024 04/09/2023, 04/13 Eye Exam 06/29/2024 06/29/2022, 06/20, 06/29/2022, Additional history exists FOBT 08/11/2024 08/12/2023 COVID-19 Vaccine ( season) 2024 Influenza Vaccine (#1) 2024 02/01/2020, 2018 Diabetes: Urine Protein Screening 03/27/2025 03/27/2024, 06/16/2023, 08/11/2022, Additional history exists Lipid Panel 03/27/2025 03/27/2024, 02/20, 04/08/2022, Additional history exists Diabetes: Hemoglobin A1C 05/05/2025 025, 07/25/2024, 10/26/2023, Additional history exists Depression Screening 07/25/2025 07/25/2024, 07/26/19 25 Disability Screening 07/25/2025 07/25/2024 Cervical Cancer Screening 07/31/2025 HPV/Cotest 07/31/2025 07/31/2020, 07/20, 07/31/2020, Additional history exists SDOH Screening 10/26/2025 10/26/2024 Alcohol/Substance Use Screening 11/02/2025 11/02/2024 Diabetes: Foot Exam 11/02/2025 11/02/2024, 11/02/2024, 11/02/2024, Additional history exists Tobacco Screening 11/04/2025 11/04/2024 Dental X-Ray: Full Mouth 04/10/2026 04/09/2023, 03/23 Mammogram 08/05/2026 08/05/2024, 07/20, 07/18/2022, Additional history exists Colorectal Cancer Screening 08/11/2026 FIT DNA/Cologuard 08/11/2026 [...] Date/Time Associated Diagnosis Comments POCT GLUCOSE Routine 11/02/2024 11:29 AM EDT Type 2 diabetes mellitus without complication, without long-term current use of insulin ([facility]) POCT GLYCOSYLATED HEMOGLOBIN (HGB A1C) Routine 11/02/2024 11:29 AM EDT Type 2 diabetes mellitus without complication, without long-term current use of insulin (CMS/HCC) BI MAMMOGRAM SCREENING TOMOSYNTHESIS BILATERAL Routine 08/05/2024 10:30 AM EDT HEPATITIS C AB W/REFL TO HCV RNA, QN, PCR Routine 04/12/2024 8:34 AM EST Transaminitis ALBUMIN, RANDOM URINE W/CREATININE Routine 03/27/2024 2:15 PM EST Type 2 diabetes mellitus without complication, without long-term current use of insulin (CMS/HCC) LIPID PANEL WITH REFLEX TO DIRECT LDL Routine 03/27/2024 2:15 PM EST Type 2 diabetes mellitus without complication, without long-term current use of insulin (CMS/HCC) LAB COLOGUARD COLON CANCER SCREEN Routine 08/12/2023 5:03 PM EDT Colon cancer screening PROPHYLAXIS - ADULT Routine 04/09/2023 1 :00 [...] * (ABNORMAL) POCT glycosylated hemoglobin (Hgb A1c) (11/02/2024 11:29 AM EDT) Hemoglobin A1C 6.5(A) 4.0 - 5.7 % QC Media Lot # [id number] Lot# Expiration Date ,[id number] Blood Capillary blood specimen / Unknown 11/02/2024 11:29 AM EDT Shanon Harris MD POINT OF CARE TEST ENTER/EDIT OR DERABLES Final Result * POCT glucose manually resulted (11/02/2024 11:29 AM EDT) Glucose Blood, POC 125 60 - 200 mg/dL QC Media Lot # [id number] Lot# Expiration Date [id number] Blood Capillary blood specimen / Unknown 11/02/2024 11:29 AM EDT Shanon Harris MD POINT OF CARE TEST ENTER/EDIT OR DERABLES Final Result * BI Mammogram Screening Tomosynthesis Bilateral (08/05/2024 10:30 AM EDT) Anatomical Region Laterality Modality Breast Bilateral Mammography 08/05/2024 10:3 0 AM EDT Narrative 08/12/2024 4:33 PM EDT [facility] [place] [address] Mammography Report Signed Patient: Mari Saravia MR#: [id number] 97 : 1970 Acct:[id number] Age/Sex: 54 / F ADM Date: 08/05/24 Loc: [facility] Attending Dr: Shanon Harris MD Ordering Physician: Shanon Harris MD Results: 1Negative Date of Service: 08/05/24 Follow Up: 1 Year From [facility] Mammogram Procedure(s): MM tomosynthesis screening BI Accession Number(s): [id number] cc: Shanon Harris MD EXAMINATION: MM SCREENING DIGITAL BREAST TOMOSYNTHESIS, BILATERAL CLINICAL INFORMATION: Screening. Asymptomatic. COMPARISON: Mammography: Comparison is made with available priors TECHNIQUE: Digital breast mammography with tomosynthesis is performed in both the craniocaudal and mediolateral oblique views along with computer-aided detection (CAD). FINDINGS: The breasts are heterogeneously dense, which may obscure small masses (ACR BI-RADS breast composition Category c). There are no significant masses, abnormal calcifications, or other abnormalities. MM/MM tomosynthesis screening BI IMPRESSION: No mammographic evidence of malignancy. ASSESSMENT: BI-RADS BI-RADS 1 - Negative RECOMMENDATION: Routine annual mammography screening. 1 year F/U This examination should not preclude the clinical evaluation of a suspicious palpable abnormality. This patient's information was entered into a reminder system with a target due date for their next mammogram. Electronically signed by: Emilee Russell DO 08/12/2024 04:30 PM EDT RP Dictated By: Emilee Russell DO Signed By: <Electronically signed by Emilee Russell DO in OV> 08/12/24 1630 DD/ 1030 TD/TT: 08/05/24 1057 Hospice Office Coordinator: Procedure Note Donotuseinterpreter, Image - 08/12/2024 [facility] [address] [place] [address] Mammography Report Signed Patient: Alisha Saravia#: [id number] 97 : 1970Acct:[id number] Age/Sex: 54 / FADM Date: 08/05/24 Loc: [facility] Attending Dr: Shanon Harris MD Ordering Physician: Shanon Harris MDResults: 1Negative Date of Service: 08/05/24Follow Up: 1 Year From [facility] Mammogram Procedure(s): MM tomosynthesis screening BI Accession Number(s): [id number] cc: Shanon Harris MD EXAMINATION: MM SCREENING DIGITAL BREAST TOMOSYNTHESIS, BILATERAL CLINICAL INFORMATION: Screening. Asymptomatic. COMPARISON: Mammography: Comparison is made with available priors TECHNIQUE: Digital breast mammography with tomosynthesis is performed in both the craniocaudal and mediolateral oblique views along with computer-aided detection (CAD). FINDINGS: The breasts are heterogeneously dense, which may obscure small masses (ACR BI-RADS breast composition Category c). There are no significant masses, abnormal calcifications, or other abnormalities. MM/MM tomosynthesis screening BI IMPRESSION: No mammographic evidence of malignancy. ASSESSMENT: BI-RADS BI-RADS 1 - Negative RECOMMENDATION: Routine annual mammography screening. 1 year F/U This examination should not preclude the clinical evaluation of a suspicious palpable abnormality. This patient's information was entered into a reminder system with a target due date for their next mammogram. Electronically signed by: Emilee Russell DO 08/12/2024 04:30 PM EDT RP Dictated By: Emilee Russell DO Signed By: <Electronically signed by Emilee Russell DO in OV> 08/12/24 1630 DD/ 1030 TD/TT: 08/05/24 1057 Hospice Office Coordinator: Shanon Harris MD IMG BI PROCEDURES Edited Result - Final * Hepatitis C Antibody with Reflex to HCV, RNA, Quantitative, Real-Time PCR (04/12/2024 8:34 AM EST) Hepatitis C Antibody Nonreactive Nonreactive [facility] Comment:Antibodies to HCV no t detected; does not exclude early acuteHCV infection. Blood Venous blood specimen / Unknown 04/12/2024 8:34 AM EST 04/12/2024 11:45 AM EST us Shanon Harris MD LAB BLOOD ORDERABLES Final Resul t [facility] [address] [place] [phone] * Lipid Panel with Reflex to Direct LDL (03/27/2024 2:15 PM EST) Triglycerides 88 <150 mg/dL [facility] Comment:Desirable Triglyceri de: less than 150 mg/dLBorderline High Triglyceride 150-199 mg/dLHigh Triglyceride: 200-499 mg/dLVery High Triglyceride: greater than or equal to 5OO mg/dL Cholesterol 146 <200 mg/dL [facility] Comment:Desirable Cholestero l: less than 200 mg/dLBorderline High Cholesterol: 200-239 mg/dLHigh Cholesterol: greater than 239 mg/dL LDL Cholesterol Calculated 86 <100 mg/dL [facility] Comment:Desirable LDL: less than 100 mg/dLNear Optimal/Above Optimal LDL: 110- 129 mg/dLBorderline High LDL: 130-159 mg/dLHigh LDL: 160-189 mg/dLVery High LDL: greater than or equal to 190 mg/dL HDL Cholesterol 43 >40 mg/dL [facility] Comment:Desirable HDL: great er than 40 mg/dL Note: This HDL assay may give artificially low results in patients with liver disease. Blood 03/27/2024 2:15 PM EST 03/27/2024 4:19 PM EST Shanon Harris MD LAB BLOOD ORDERABLES Final Resul t Performing Organization Address [facility] Co de Phone Number [facility] [address] [place] [phone] * Albumin, Random Urine W/Creatinine (03/27/2024 2:15 PM EST) Creatinine, Urine 18.25 mg/dL [facility] Microalbumin Urine <5.0 mg/L [facility] Microalbum Creatinine Ratio Ur TNP <30 ug/mg cr [facility] Comment:Unable to calculate albumin/creatinine ratio due to lowmicroalbumin or creatinine result. Urine 03/27/2024 2:15 PM EST 03/27/2024 4:12 PM EST Shanon Harris MD LAB URINE ORDERABLES Final Resul t Performing Organization Address [facility] [facility] de Phone Number [facility] [address] [place] [phone] * Cologuard?? colon cancer screening (08/12/2023 5:03 PM EDT) Cologuard Result Negative Negative 08/20/19 24 2:18 AM EDT [facility] [employer] (CLIA #:[id number]) Comment: NEGATIVE TEST RESULT. A negative Cologuard result indicates a low likelihood that a colorectal cancer (CRC) or advanced adenoma (adenomatous polyps with more advanced pre-malignant features) is present. The chance that a person with a negative Cologuard test has a colorectal cancer is less than 1 in 1500 (negative predictive value >99.9%) or has an advanced adenoma is less than 5.3% (negative predictive value 94.7%). These data are based on a prospective cross-sectional study of 10,000 individuals at average risk for colorectal cancer who were screened with both Cologuard and colonoscopy. (Eliazar Love al, N Engl J Med 2014;370(14):4516-7496) The normal value (reference range) for this assay is negative. COLOGUARD RE-SCREENING RECOMMENDATION: Periodic colorectal cancer screening is an important part of preventive healthcare for asymptomatic individuals at average risk for colorectal cancer. Following a negative Cologuard result, the [place] [employer] and U.S. Multi-Society Task Force screening guidelines recommend a Cologuard re-screening interval of 3 years. References: [place] [employer] Guideline for Colorectal Cancer Screening: https://www.cancer.org/cancer/mveru-parfec-emksos/axlzwutde-cruthqaxi-ynfrkna/ac s-rec ommendations.html.; Jerrod DIAZ, Tavon KIRKPATRICK, Guadalupe CortezK, Colorectal Cancer Screening: Recommendations for Physicians and Patients from the U.S. Multi-Society Task Force on Colorectal Cancer Screening , Am J Gastroenterology 2017; 112:9567-2091. TEST DESCRIPTION: Composite algorithmic analysis of stool DNA-biomarkers with hemoglobin immunoassay. Quantitative values of individual biomarkers are not [...] screened with both Cologuard and colonoscopy. (Eliazar Dutton, N Engl J Med 2014;370(14):4543-8794.) Cologuard may produce a false negative or false positive result (no colorectal cancer or precancerous polyp present at colonoscopy follow up). A negative Cologuard test result does not guarantee the absence of CRC or advanced adenoma (pre-cancer). The current Cologuard screening interval is every 3 years. ([place] [employer] and U.S. Multi-Society Task Force). Cologuard performance data in a 10,000 patient pivotal study using colonoscopy as the reference method can be accessed at the following location: www.[employer]/results. Additional description of the Cologuard test process, warnings and precautions can be found at www.cologuard.com. Stool specimen (specimen) 08/12/2023 5:03 PM EDT 08/14/2023 10:50 AM EDT Shanon Harris MD LAB MOLECULAR DIAGNOSTICS ORDERA BLES Final Result [employer] (CLIA #:[id number]) [address] [place] [address], * HIV 1/2 ANTIGEN/ANTIBODY,FOURTH GENERATION W/RFL (04/22/2021 8:19 AM EST) Pathologist [facility] [place] HIV-1/2 ANTIGEN AND ANTIBODIES, 4TH GENERATION W/ REFLEX NON-REACT ALEXANDRU NON-REACT ALEXANDRU [facility] Comment: HIV-1 antigen and HIV-1/HIV-2 antibodies were not detected. There is no laboratory evidence of HIV infection. PLEASE NOTE: This information has been disclosed to you from records whose confidentiality may be protected by state law. If your state requires such protection, then the state law prohibits you from making any further disclosure of the information without the specific written consent of the person to whom it pertains, or as otherwise permitted by law. A general authorization for the release of medical or other information is NOT sufficient for this purpose. For additional information please refer to http://education.[place].CogniK/faq/YCY985 (This link is being provided for informational/ educational purposes only.) The performance of this assay has not been clinically validated in patients less than 2 years old. 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
--- OUTSIDE RECORDS SUMMARY | 2025-01-10 20:37 | XMS_ITS | Encounter Summary ---
Author Organization [employer] Address [address] [place] [address] Care Team Providers Care Critical Care Unit Manager Name Role Phone Shanon Harris MD Primary Care Provider [phone] Encounter Details Date Type Department Care Team (Latest Contact Info) Description 10/21/2018 Abstract [facility] Dental, Provider, DDS Social History [...] Description 02/20/2025 10:30 AM EST Office Visit [facility] [address] [place] [address] Ena Wang, OD [address] [place] [address] documented as of this encounter Visit Diagnoses Not on filedocumented in this encounter Care Teams Critical Care Unit Manager Relationship Specialty Start Date End Date Shanon Harris MD [address] [place] [address] PCP - General Family Medicine 03/22/18 documented as of this encounter
== END 2025-01-10 14:49 | disposition home or self-care (01) ==
LOC: HO.HOS 14:24
PROVIDERS: PCP Family Medicine
DX: M65.332 Trigger finger, left middle finger (principal)
CPT/HCPCS: 99203

== ENCOUNTER → 2025-01-10 14:23 | Outpatient (BNVA) | payer OTHER, SELFPAY | PROVIDERS: PCP Family Medicine | DX: M65.332 Trigger finger, left middle finger (principal) | CPT/HCPCS: 99202 ==